=== PATIENT | male | born 1965 | race Caucasian/White ===

== ENCOUNTER 2017-01-06 20:56 | Inpatient (IN) | payer MEDICAID ==
[~2017-01-06] VITALS: Ht 165.1 cm; Wt 61.7 kg
[~2017-01-06 20:56] MED LIST: DSS100 PO; OMEP20 PO; OXCA300T PO; QUET300T2 PO; TAMS0.4C32 PO; VITAD1000 PO
[2017-01-06] MEDS ORDERED: ZOLPIDEM TARTRATE 10 MG TABLET PO PRN (22:00)
[2017-01-06] MEDS ORDERED: QUEtiapine FUMARATE 100 MG TABLET PO PRN (22:00)
[2017-01-06] MEDS ORDERED: -PHARMACY VACCINE NOTE- MISC ONE ×2 (22:15)
[2017-01-07 00:05] VITALS: BP 120/61
[2017-01-07] MEDS ORDERED: MAGNESIUM HYDROXIDE SUSPENSION 30 ML UDCUP PO PRN (07:45)
[2017-01-07] MEDS ORDERED: BACITRACIN 28.4 GM OINTMENT TP PRN (07:45)
[2017-01-07] MEDS ORDERED: BENZOCAINE/MENTHOL LOZENGE MM PRN (07:45)
[2017-01-07] MEDS ORDERED: CloNIDine HCL 0.1 MG TABLET PO PRN (07:45)
[2017-01-07] MEDS ORDERED: ACETAMINOPHEN 325 MG TABLET PO PRN (07:45)
[2017-01-07] MEDS ORDERED: PETROLATUM,WHITE 71 GM JELLY TP PRN (07:45)
[2017-01-07] MEDS ORDERED: IBUPROFEN 600 MG TABLET PO PRN (07:45)
[2017-01-07] MEDS ORDERED: ALBUTEROL SULFATE HFA 90 MCG/PUFF 8 GM INHALER IH PRN (07:45)
[2017-01-07] MEDS ORDERED: MAG HYDROX/AL HYDROX/SIMETH ES 30 ML SUSPENSION UDCUP PO PRN (07:45)
[2017-01-07] MEDS ORDERED: ONDANSETRON HCL 4 MG TABLET PO PRN (07:45)
[2017-01-07] MEDS ORDERED: LOPERAMIDE HCL 2 MG CAPSULE PO PRN (07:45)
[2017-01-07 08:12] LABS: BASOPHILS # (AUTO) 0.03 K/uL (0.00-0.20); BASOPHILS % (AUTO) 0.8 % (0.0-2.0); EOSINOPHILS # (AUTO) 0.17 K/uL (0.00-0.70); EOSINOPHILS % (AUTO) 3.91 % (1.0-6.0); HEMATOCRIT 40.5 % (41-53); HEMOGLOBIN 13.7 g/dL (13.5-17.5); LYMPHOCYTES # (AUTO) 1.4 K/uL (1.0-4.8); LYMPHOCYTES % (AUTO) 32.9 % (22.0-44.0); MEAN CORPUSCULAR HEMOGLOBIN 32.8 pg (26.0-34.0); MEAN CORPUSCULAR HGB CONC 33.8 G/dL (31.0-37.0); MEAN CORPUSCULAR VOLUME 97 fL (80-100); MONOCYTES # (AUTO) 0.7 K/uL (0.1-1.0); MONOCYTES % (AUTO) 16.1 % (2.0-9.0); NEUTROPHILS % (AUTO) 46.4 % (40.0-70.0); PLATELET COUNT (AUTO) 117 K/uL (150-450); RED BLOOD CELL COUNT(AUTO) 4.17 MIL/uL (4.50-5.90); RED CELL DISTRIBUTION WIDTH 14.3 % (11.5-14.5); WHITE BLOOD COUNT (AUTO) 4.3 K/uL (4.5-11.0)
[2017-01-07 08:22] LABS: HEMOGLOBIN A1C 5.2 % (4.5-6.2)
[2017-01-07 09:00] LABS: ALANINE AMINOTRANSFERASE 214 U/L (12-78); ALBUMIN 3.2 g/dL (3.4-5.0); ANION GAP 7 mmol/L (8-16); ASPARTATE AMINOTRANSFERASE 116 U/L (15-37); BILIRUBIN,TOTAL 0.5 mg/dL (0.1-1.0); CALCIUM, TOTAL 8.4 mg/dL (8.8-10.5); CARBON DIOXIDE 30 mmol/L (22-29); CHLORIDE 106 mmol/L (98-107); CHOL/HDL RATIO 3.6 (4.2-7.3); CREATININE 0.96 mg/dL (0.60-1.30); GLOMERULAR FILTR. RATE CALC > 60 mL/min (>60); SODIUM SERUM 143 mmol/L (136-145); THYROID STIMULATING HORMONE 0.96 uIU/mL (0.36-3.74); TOTAL PROTEIN, SERUM 6.6 g/dL (6.4-8.2); UREA NITROGEN, BLOOD 16 mg/dL (7-18)
[2017-01-07] MEDS ORDERED: OXcarbazepine 300 MG TABLET PO SCH (09:00)
[2017-01-07] MEDS ORDERED: GuaiFENesin/D-METHORPHAN [SUGAR-FREE] 200-20MG/10 ML SYRUP UDCUP PO PRN (09:15)
[2017-01-07] MEDS ORDERED: HydrOXYzine PAMOATE 50 MG CAPSULE PO PRN (09:15)
[2017-01-07 09:40] VITALS: BP 90/60
[2017-01-07] MEDS ORDERED: QUEtiapine FUMARATE 25 MG TABLET PO PRN (10:00)
[2017-01-07] MEDS: TAMSULOSIN HCL 0.4 MG CAPSULE PO SCH (10:07)
[2017-01-07] MEDS: CHOLECALCIFEROL (VIT D3) 1,000 UNITS TABLET PO SCH (10:07)
[2017-01-07] MEDS: OMEPRAZOLE 20 MG CAPSULE PO SCH (10:07)
[2017-01-07] MEDS: LORazepam 2 MG TABLET PO PRN (12:54)
[2017-01-07] MEDS: PARoxetine HCL 20 MG TABLET PO SCH (12:54)
[2017-01-07 16:00] VITALS: BP 98/62
[2017-01-07] MEDS: QUEtiapine FUMARATE 25 MG TABLET PO SCH (18:22)
[2017-01-07] MEDS: THIAMINE HCL 100 MG TABLET PO SCH (18:22)
[2017-01-07] MEDS: QUEtiapine FUMARATE 200 MG TABLET PO SCH ×2 (21:00→23:00)
[2017-01-07 21:30] VITALS: BP 105/67
[2017-01-07] MEDS ORDERED: DiphenhydrAMINE HCL 50 MG/ML VIAL IM ONE (22:30)
[2017-01-07] MEDS ORDERED: HALOPERIDOL LACTATE 5 MG/ML VIAL IM ONE (22:30)
[2017-01-07] MEDS ORDERED: LORazepam 2 MG/ML VIAL IM ONE (22:30)
[2017-01-08 00:05] VITALS: BP 102/62
[2017-01-08] MEDS ORDERED: PARoxetine HCL 20 MG TABLET PO SCH (09:00)
[2017-01-08] MEDS: TAMSULOSIN HCL 0.4 MG CAPSULE PO SCH (09:05)
[2017-01-08] MEDS: THIAMINE HCL 100 MG TABLET PO SCH ×2 (09:06→16:18)
[2017-01-08] MEDS: FOLIC ACID 1 MG TABLET PO SCH (09:06)
[2017-01-08] MEDS: QUEtiapine FUMARATE 25 MG TABLET PO SCH ×2 (09:06→16:18)
[2017-01-08] MEDS: CHOLECALCIFEROL (VIT D3) 1,000 UNITS TABLET PO SCH (09:06)
[2017-01-08] MEDS: OMEPRAZOLE 20 MG CAPSULE PO SCH (09:06)
[2017-01-08] MEDS: PARoxetine HCL 20 MG TABLET PO SCH (09:06)
[2017-01-08] MEDS: MULTIVITAMINS WITH MINERALS, THERAPEUTIC TABLET PO SCH (09:06)
[2017-01-08] MEDS: QUEtiapine FUMARATE 200 MG TABLET PO SCH (21:42)
[2017-01-09 01:44] VITALS: BP 93/64
[2017-01-09 08:00] VITALS: BP 90/61
[2017-01-09] MEDS: QUEtiapine FUMARATE 25 MG TABLET PO SCH ×2 (09:00→16:34)
[2017-01-09] MEDS: FOLIC ACID 1 MG TABLET PO SCH (09:13)
[2017-01-09] MEDS: MULTIVITAMINS WITH MINERALS, THERAPEUTIC TABLET PO SCH (09:13)
[2017-01-09] MEDS: OMEPRAZOLE 20 MG CAPSULE PO SCH (09:13)
[2017-01-09] MEDS: LamoTRIgine 25 MG TABLET PO SCH (09:14)
[2017-01-09] MEDS: THIAMINE HCL 100 MG TABLET PO SCH ×2 (09:14→16:34)
[2017-01-09] MEDS: CHOLECALCIFEROL (VIT D3) 1,000 UNITS TABLET PO SCH (09:14)
[2017-01-09] MEDS: TAMSULOSIN HCL 0.4 MG CAPSULE PO SCH (09:14)
[2017-01-09 16:00] VITALS: BP 96/58
[2017-01-09] MEDS: LORazepam 2 MG TABLET PO PRN (17:51)
[2017-01-09] MEDS ORDERED: QUEtiapine FUMARATE 100 MG TABLET PO SCH (21:00)
[2017-01-10 07:03] VITALS: BP 90/56
[2017-01-10 08:59] VITALS: BP 81/48
[2017-01-10] MEDS: THIAMINE HCL 100 MG TABLET PO SCH ×3 (09:00→16:18)
[2017-01-10] MEDS: FOLIC ACID 1 MG TABLET PO SCH ×2 (09:00→09:26)
[2017-01-10] MEDS: CHOLECALCIFEROL (VIT D3) 1,000 UNITS TABLET PO SCH ×2 (09:00→09:26)
[2017-01-10] MEDS: QUEtiapine FUMARATE 25 MG TABLET PO SCH (09:00)
[2017-01-10] MEDS: LamoTRIgine 25 MG TABLET PO SCH ×2 (09:00→09:26)
[2017-01-10] MEDS: MULTIVITAMINS WITH MINERALS, THERAPEUTIC TABLET PO SCH ×2 (09:00→09:26)
[2017-01-10] MEDS: OMEPRAZOLE 20 MG CAPSULE PO SCH (09:26)
[2017-01-10] MEDS: TAMSULOSIN HCL 0.4 MG CAPSULE PO SCH (09:26)
[2017-01-10 17:29] VITALS: BP 106/65
[2017-01-10] MEDS ORDERED: LamoTRIgine 25 MG TABLET PO SCH (21:00)
[2017-01-10] MEDS ORDERED: QUEtiapine FUMARATE 300 MG TABLET PO SCH (21:00)
[2017-01-11 00:01] VITALS: BP 104/65
[2017-01-11] MEDS: MULTIVITAMINS WITH MINERALS, THERAPEUTIC TABLET PO SCH (09:14)
[2017-01-11] MEDS: THIAMINE HCL 100 MG TABLET PO SCH ×2 (09:14→17:25)
[2017-01-11] MEDS: TAMSULOSIN HCL 0.4 MG CAPSULE PO SCH (09:14)
[2017-01-11] MEDS: FOLIC ACID 1 MG TABLET PO SCH (09:14)
[2017-01-11] MEDS: CHOLECALCIFEROL (VIT D3) 1,000 UNITS TABLET PO SCH (09:14)
[2017-01-11] MEDS: OMEPRAZOLE 20 MG CAPSULE PO SCH (09:14)
[2017-01-11] MEDS ORDERED: THIA100 PO (16:05)
[2017-01-11] MEDS ORDERED: FOLI1 PO (16:06)
[2017-01-11] MEDS ORDERED: MV-M1TAB2 PO (16:18)
[2017-01-11] MEDS ORDERED: LAMO25 PO (16:34)
== END 2017-01-11 17:35 | disposition home or self-care (01) | DRG 750 ==
LOC: B2S 21:58 → EDSTATUS 22:02 → B2S 22:14
PROVIDERS: ADMIT Psychiatry & Neurology Psychiatry; ATTEND Psychiatry & Neurology Psychiatry
DX: F25.0 Schizoaffective disorder, bipolar type (principal); G93.41 Metabolic encephalopathy; E46 Unspecified protein-calorie malnutrition; J44.9 Chronic obstructive pulmonary disease, unspecified; E55.9 Vitamin D deficiency, unspecified; F19.20 Other psychoactive substance dependence, uncomplicated; F17.200 Nicotine dependence, unspecified, uncomplicated; N40.0 Benign prostatic hyperplasia without lower urinary tract symptoms; Z91.14 Patient's other noncompliance with medication regimen; K21.9 Gastro-esophageal reflux disease without esophagitis; B18.2 Chronic viral hepatitis C; K59.00 Constipation, unspecified; G47.00 Insomnia, unspecified; Z68.22 Body mass index [BMI] 22.0-22.9, adult; R45.851 Suicidal ideations
CPT/HCPCS: 83036; 84439; 84443

== ENCOUNTER 2017-04-10 16:05 | Emergency (ER) | payer MEDICAID ==
[~2017-04-10] VITALS: Ht 165.1 cm; Wt 56.8 kg
[~2017-04-10 16:05] MED LIST changes: -DSS100 PO; +FOLI1 PO; +LAMO25 PO; +MV-M1TAB2 PO; -OXCA300T PO; +THIA100 PO
[2017-04-10] MEDS ORDERED: LORazepam 2 MG/ML VIAL IM ONE (16:30)
[2017-04-10 16:55] LABS: ANION GAP 12 mmol/L (8-16); CALCIUM, TOTAL 9.5 mg/dL (8.8-10.5); CARBON DIOXIDE 25 mmol/L (22-29); CHLORIDE 104 mmol/L (98-107); CREATININE 0.98 mg/dL (0.60-1.30); GLOMERULAR FILTR. RATE CALC > 60 mL/min (>60); POTASSIUM 3.6 mmol/L (3.5-5.1); SODIUM SERUM 141 mmol/L (136-145); UREA NITROGEN, BLOOD 12 mg/dL (7-18)
[2017-04-10 16:57] LABS: BASOPHILS % (AUTO) 0.3 % (0.0-2.0); EOSINOPHILS % (AUTO) 0.8 % (1.0-6.0); HEMATOCRIT 46.5 % (41-53); HEMOGLOBIN 16.2 g/dL (13.5-17.5); LYMPHOCYTES # (AUTO) 1.5 K/uL (1.0-4.8); LYMPHOCYTES % (AUTO) 28.6 % (22.0-44.0); MEAN CORPUSCULAR HEMOGLOBIN 33.2 pg (26.0-34.0); MEAN CORPUSCULAR HGB CONC 34.8 G/dL (31.0-37.0); MEAN CORPUSCULAR VOLUME 96 fL (80-100); MONOCYTES # (AUTO) 0.4 K/uL (0.1-1.0); MONOCYTES % (AUTO) 8.1 % (2.0-9.0); NEUTROPHILS # (AUTO) 3.3 K/uL (1.8-7.7); NEUTROPHILS % (AUTO) 62.2 % (40.0-70.0); PLATELET COUNT (AUTO) 135 K/uL (150-450); RED BLOOD CELL COUNT(AUTO) 4.87 MIL/uL (4.50-5.90); RED CELL DISTRIBUTION WIDTH 13.7 % (11.5-14.5); WHITE BLOOD COUNT (AUTO) 5.3 K/uL (4.5-11.0)
[2017-04-10 17:01] LABS: ALANINE AMINOTRANSFERASE 256 U/L (12-78); ALBUMIN 3.8 g/dL (3.4-5.0); ASPARTATE AMINOTRANSFERASE 152 U/L (15-37); BILIRUBIN,TOTAL 0.8 mg/dL (0.1-1.0); TOTAL PROTEIN, SERUM 7.6 g/dL (6.4-8.2)
[2017-04-10 20:31] VITALS: BP 109/62
== END 2017-04-10 20:33 | disposition home or self-care (01) ==
LOC: EDSTATUS 16:05 → EMS 16:12
DX: F41.9 Anxiety disorder, unspecified (principal); F25.9 Schizoaffective disorder, unspecified; F15.10 Other stimulant abuse, uncomplicated; F31.9 Bipolar disorder, unspecified; E03.9 Hypothyroidism, unspecified; B19.20 Unspecified viral hepatitis C without hepatic coma; Z59.0 Homelessness
CPT/HCPCS: 36415; 71010; 80053; 80307; 85025; 93005; 96372; 99285; G0480; J2060

== ENCOUNTER 2017-06-10 19:24 | Inpatient (IN) | payer MEDICAID ==
[~2017-06-10] VITALS: Ht 165.1 cm; Wt 56.3 kg
[~2017-06-10 19:24] MED LIST changes: +DSS100 PO; -FOLI1 PO; +MULT-723 PO; -MV-M1TAB2 PO; +PARO20TA24 PO; +QUET25TA PO; -THIA100 PO; -VITAD1000 PO
[2017-06-10] MEDS ORDERED: HALOPERIDOL 5 MG TABLET PO PRN (20:00)
[2017-06-10] MEDS ORDERED: LORazepam 2 MG TABLET PO PRN (20:00)
[2017-06-10 20:19] VITALS: BP 100/69
[2017-06-10] MEDS ORDERED: INFLUENZA VIRUS VACCINE QVS 2017-18 (3YR+)/PF 60 MCG/0.5 ML SYRINGE IM ONE (20:45)
[2017-06-10] MEDS: QUEtiapine FUMARATE 300 MG TABLET PO SCH (21:06)
[2017-06-10] MEDS: LamoTRIgine 25 MG TABLET PO SCH (21:06)
[2017-06-11 00:52] VITALS: BP 100/53
[2017-06-11] MEDS: OMEPRAZOLE 20 MG CAPSULE PO SCH (06:31)
[2017-06-11 08:36] VITALS: BP 96/57
[2017-06-11] MEDS: MULTIVITAMINS, THERAPEUTIC TABLET PO SCH (08:48)
[2017-06-11] MEDS: QUEtiapine FUMARATE 25 MG TABLET PO SCH ×2 (08:48→17:49)
[2017-06-11] MEDS: DOCUSATE SODIUM 100 MG CAPSULE PO SCH (08:49)
[2017-06-11] MEDS: LamoTRIgine 25 MG TABLET PO SCH ×2 (08:49→21:02)
[2017-06-11] MEDS: TAMSULOSIN HCL 0.4 MG CAPSULE PO SCH (08:49)
[2017-06-11] MEDS: PARoxetine HCL 20 MG TABLET PO SCH (08:49)
[2017-06-11 17:00] VITALS: BP 103/67
[2017-06-11] MEDS ORDERED: ALBUTEROL SULFATE HFA 90 MCG/PUFF 8 GM INHALER IH PRN (19:15)
[2017-06-11] MEDS: QUEtiapine FUMARATE 300 MG TABLET PO SCH (21:02)
[2017-06-12] MEDS: OMEPRAZOLE 20 MG CAPSULE PO SCH (06:19)
[2017-06-12 06:22] VITALS: BP 116/62
[2017-06-12 08:18] LABS: BASOPHILS % (AUTO) 1.2 % (0.0-2.0); EOSINOPHILS % (AUTO) 4.1 % (1.0-6.0); HEMATOCRIT 39.2 % (41-53); HEMOGLOBIN 13.8 g/dL (13.5-17.5); LYMPHOCYTES # (AUTO) 1.3 K/uL (1.0-4.8); LYMPHOCYTES % (AUTO) 37.1 % (22.0-44.0); MEAN CORPUSCULAR HEMOGLOBIN 33.9 pg (26.0-34.0); MEAN CORPUSCULAR HGB CONC 35.1 G/dL (31.0-37.0); MEAN CORPUSCULAR VOLUME 97 fL (80-100); MONOCYTES # (AUTO) 0.5 K/uL (0.1-1.0); NEUTROPHILS # (AUTO) 1.6 K/uL (1.8-7.7); NEUTROPHILS % (AUTO) 43.6 % (40.0-70.0); PLATELET COUNT (AUTO) 122 K/uL (150-450); RED BLOOD CELL COUNT(AUTO) 4.06 MIL/uL (4.50-5.90); RED CELL DISTRIBUTION WIDTH 14.1 % (11.5-14.5); WHITE BLOOD COUNT (AUTO) 3.6 K/uL (4.5-11.0)
[2017-06-12 08:49] LABS: ALANINE AMINOTRANSFERASE 309 U/L (12-78); ALBUMIN 2.9 g/dL (3.4-5.0); ASPARTATE AMINOTRANSFERASE 241 U/L (15-37); BILIRUBIN,TOTAL 0.5 mg/dL (0.1-1.0); CALCIUM, TOTAL 8.4 mg/dL (8.8-10.5); CARBON DIOXIDE 30 mmol/L (22-29); CHOL/HDL RATIO 3.4 (4.2-7.3); CREATININE 1.01 mg/dL (0.60-1.30); GLOMERULAR FILTR. RATE CALC > 60 mL/min (>60); THYROID STIMULATING HORMONE 0.46 uIU/mL (0.36-3.74)
[2017-06-12] MEDS: QUEtiapine FUMARATE 25 MG TABLET PO SCH ×2 (09:00→16:23)
[2017-06-12] MEDS: PARoxetine HCL 20 MG TABLET PO SCH (09:00)
[2017-06-12] MEDS: LamoTRIgine 25 MG TABLET PO SCH ×2 (09:00→20:21)
[2017-06-12] MEDS: TAMSULOSIN HCL 0.4 MG CAPSULE PO SCH (09:00)
[2017-06-12] MEDS: DOCUSATE SODIUM 100 MG CAPSULE PO SCH (09:00)
[2017-06-12] MEDS: MULTIVITAMINS, THERAPEUTIC TABLET PO SCH (09:00)
[2017-06-12 09:06] VITALS: BP 112/70
[2017-06-12 10:01] LABS: UREA NITROGEN, BLOOD 21 mg/dL (7-18)
[2017-06-12 11:01] LABS: HEMOGLOBIN A1C 4.6 % (4.5-6.2)
[2017-06-12 11:14] LABS: ANION GAP 5 mmol/L (8-16); CHLORIDE 104 mmol/L (98-107); POTASSIUM 3.9 mmol/L (3.5-5.1); SODIUM SERUM 139 mmol/L (136-145)
[2017-06-12 16:15] VITALS: BP 119/70
[2017-06-12] MEDS: QUEtiapine FUMARATE 300 MG TABLET PO SCH (20:21)
[2017-06-13 01:11] VITALS: BP 100/68
[2017-06-13] MEDS: OMEPRAZOLE 20 MG CAPSULE PO SCH (06:58)
[2017-06-13 08:45] VITALS: BP 116/73
[2017-06-13] MEDS: QUEtiapine FUMARATE 25 MG TABLET PO SCH ×2 (08:49→16:08)
[2017-06-13] MEDS: TAMSULOSIN HCL 0.4 MG CAPSULE PO SCH (08:49)
[2017-06-13] MEDS: MULTIVITAMINS, THERAPEUTIC TABLET PO SCH (08:49)
[2017-06-13] MEDS: DOCUSATE SODIUM 100 MG CAPSULE PO SCH (08:50)
[2017-06-13] MEDS: PARoxetine HCL 20 MG TABLET PO SCH (08:50)
[2017-06-13] MEDS: LamoTRIgine 25 MG TABLET PO SCH ×2 (08:50→20:05)
[2017-06-13] MEDS: FLUTICASONE/VILANTEROL 200-25 MCG/INH INHALER [14] IH SCH (09:40)
[2017-06-13 16:01] VITALS: BP 93/58
[2017-06-13] MEDS: QUEtiapine FUMARATE 300 MG TABLET PO SCH (20:05)
[2017-06-14 00:01] VITALS: BP 101/63
[2017-06-14] MEDS: OMEPRAZOLE 20 MG CAPSULE PO SCH (06:32)
[2017-06-14 08:29] VITALS: BP 82/60
[2017-06-14] MEDS: FLUTICASONE/VILANTEROL 200-25 MCG/INH INHALER [14] IH SCH (08:30)
[2017-06-14] MEDS: QUEtiapine FUMARATE 25 MG TABLET PO SCH ×2 (08:30→17:01)
[2017-06-14] MEDS: PARoxetine HCL 20 MG TABLET PO SCH (08:31)
[2017-06-14] MEDS: LamoTRIgine 25 MG TABLET PO SCH ×2 (08:31→20:23)
[2017-06-14] MEDS: MULTIVITAMINS, THERAPEUTIC TABLET PO SCH (08:31)
[2017-06-14] MEDS: DOCUSATE SODIUM 100 MG CAPSULE PO SCH (08:31)
[2017-06-14] MEDS: TAMSULOSIN HCL 0.4 MG CAPSULE PO SCH (08:32)
[2017-06-14 16:07] VITALS: BP 112/65
[2017-06-14] MEDS: QUEtiapine FUMARATE 300 MG TABLET PO SCH (20:23)
[2017-06-15 02:12] VITALS: BP 122/71
[2017-06-15] MEDS: OMEPRAZOLE 20 MG CAPSULE PO SCH (06:37)
[2017-06-15 08:18] VITALS: BP 108/62
[2017-06-15] MEDS: MULTIVITAMINS, THERAPEUTIC TABLET PO SCH (09:18)
[2017-06-15] MEDS: TAMSULOSIN HCL 0.4 MG CAPSULE PO SCH (09:18)
[2017-06-15] MEDS: QUEtiapine FUMARATE 25 MG TABLET PO SCH ×2 (09:18→16:41)
[2017-06-15] MEDS: LamoTRIgine 25 MG TABLET PO SCH ×2 (09:19→20:09)
[2017-06-15] MEDS: PARoxetine HCL 20 MG TABLET PO SCH (09:19)
[2017-06-15] MEDS: DOCUSATE SODIUM 100 MG CAPSULE PO SCH (09:19)
[2017-06-15] MEDS: FLUTICASONE/VILANTEROL 200-25 MCG/INH INHALER [14] IH SCH (09:23)
[2017-06-15 16:09] VITALS: BP 102/60
[2017-06-15] MEDS: QUEtiapine FUMARATE 300 MG TABLET PO SCH (20:09)
[2017-06-16] MEDS: OMEPRAZOLE 20 MG CAPSULE PO SCH (06:39)
[2017-06-16 09:00] VITALS: BP 98/57
[2017-06-16] MEDS: DOCUSATE SODIUM 100 MG CAPSULE PO SCH (09:22)
[2017-06-16] MEDS: MULTIVITAMINS, THERAPEUTIC TABLET PO SCH (09:23)
[2017-06-16] MEDS: PARoxetine HCL 20 MG TABLET PO SCH (09:23)
[2017-06-16] MEDS: QUEtiapine FUMARATE 25 MG TABLET PO SCH ×2 (09:23→16:57)
[2017-06-16] MEDS: TAMSULOSIN HCL 0.4 MG CAPSULE PO SCH (09:23)
[2017-06-16] MEDS: FLUTICASONE/VILANTEROL 200-25 MCG/INH INHALER [14] IH SCH (09:23)
[2017-06-16] MEDS: LamoTRIgine 25 MG TABLET PO SCH ×2 (09:23→20:40)
[2017-06-16] MEDS ORDERED: PALIPERIDONE PALMITATE 234 MG/1.5 ML SYRINGE IM ONE (10:45)
[2017-06-16 16:35] VITALS: BP 117/71
[2017-06-16] MEDS: QUEtiapine FUMARATE 300 MG TABLET PO SCH (20:40)
[2017-06-16] MEDS: ZOLPIDEM TARTRATE 10 MG TABLET PO PRN (20:48)
[2017-06-17] MEDS: OMEPRAZOLE 20 MG CAPSULE PO SCH (06:44)
[2017-06-17 08:15] LABS: BASOPHILS % (AUTO) 0.5 % (0.0-2.0); EOSINOPHILS % (AUTO) 2.7 % (1.0-6.0); HEMATOCRIT 40.7 % (41-53); HEMOGLOBIN 14.3 g/dL (13.5-17.5); LYMPHOCYTES # (AUTO) 1.1 K/uL (1.0-4.8); LYMPHOCYTES % (AUTO) 24.5 % (22.0-44.0); MEAN CORPUSCULAR HEMOGLOBIN 34.1 pg (26.0-34.0); MEAN CORPUSCULAR VOLUME 97 fL (80-100); MONOCYTES # (AUTO) 0.6 K/uL (0.1-1.0); NEUTROPHILS # (AUTO) 2.7 K/uL (1.8-7.7); NEUTROPHILS % (AUTO) 59.3 % (40.0-70.0); PLATELET COUNT (AUTO) 115 K/uL (150-450); RED BLOOD CELL COUNT(AUTO) 4.18 MIL/uL (4.50-5.90); RED CELL DISTRIBUTION WIDTH 14.3 % (11.5-14.5); WHITE BLOOD COUNT (AUTO) 4.5 K/uL (4.5-11.0)
[2017-06-17 08:31] LABS: CHOL/HDL RATIO 3.3 (4.2-7.3); THYROID STIMULATING HORMONE 1.75 uIU/mL (0.36-3.74)
[2017-06-17] MEDS: TAMSULOSIN HCL 0.4 MG CAPSULE PO SCH (09:21)
[2017-06-17] MEDS: LamoTRIgine 25 MG TABLET PO SCH ×2 (09:21→20:51)
[2017-06-17] MEDS: MULTIVITAMINS, THERAPEUTIC TABLET PO SCH (09:21)
[2017-06-17] MEDS: QUEtiapine FUMARATE 25 MG TABLET PO SCH ×2 (09:21→17:15)
[2017-06-17] MEDS: PARoxetine HCL 20 MG TABLET PO SCH (09:21)
[2017-06-17] MEDS: DOCUSATE SODIUM 100 MG CAPSULE PO SCH (09:21)
[2017-06-17] MEDS: FLUTICASONE/VILANTEROL 200-25 MCG/INH INHALER [14] IH SCH (09:22)
[2017-06-17 15:05] VITALS: BP 100/69
[2017-06-17 16:31] VITALS: BP 110/66
[2017-06-17] MEDS: QUEtiapine FUMARATE 300 MG TABLET PO SCH (20:51)
[2017-06-17] MEDS: ZOLPIDEM TARTRATE 10 MG TABLET PO PRN (22:30)
[2017-06-18 00:01] VITALS: BP 101/67
[2017-06-18] MEDS: OMEPRAZOLE 20 MG CAPSULE PO SCH (06:16)
[2017-06-18 08:53] VITALS: BP 98/58
[2017-06-18] MEDS: TAMSULOSIN HCL 0.4 MG CAPSULE PO SCH (09:40)
[2017-06-18] MEDS: PARoxetine HCL 20 MG TABLET PO SCH (09:40)
[2017-06-18] MEDS: QUEtiapine FUMARATE 25 MG TABLET PO SCH ×2 (09:40→17:06)
[2017-06-18] MEDS: DOCUSATE SODIUM 100 MG CAPSULE PO SCH (09:40)
[2017-06-18] MEDS: MULTIVITAMINS, THERAPEUTIC TABLET PO SCH (09:40)
[2017-06-18] MEDS: LamoTRIgine 25 MG TABLET PO SCH ×2 (09:40→20:37)
[2017-06-18] MEDS: FLUTICASONE/VILANTEROL 200-25 MCG/INH INHALER [14] IH SCH (09:40)
[2017-06-18 12:36] VITALS: BP 96/56
[2017-06-18 16:41] VITALS: BP 102/62
[2017-06-18] MEDS: QUEtiapine FUMARATE 300 MG TABLET PO SCH (20:37)
[2017-06-19 00:53] VITALS: BP 110/69
[2017-06-19 01:11] VITALS: BP 100/59
[2017-06-19] MEDS: OMEPRAZOLE 20 MG CAPSULE PO SCH (06:43)
[2017-06-19] MEDS: PARoxetine HCL 20 MG TABLET PO SCH (08:38)
[2017-06-19] MEDS: LamoTRIgine 25 MG TABLET PO SCH ×2 (08:38→21:06)
[2017-06-19] MEDS: QUEtiapine FUMARATE 25 MG TABLET PO SCH ×2 (08:38→16:53)
[2017-06-19] MEDS: DOCUSATE SODIUM 100 MG CAPSULE PO SCH (08:38)
[2017-06-19] MEDS: TAMSULOSIN HCL 0.4 MG CAPSULE PO SCH (08:38)
[2017-06-19] MEDS: MULTIVITAMINS, THERAPEUTIC TABLET PO SCH (08:38)
[2017-06-19] MEDS: FLUTICASONE/VILANTEROL 200-25 MCG/INH INHALER [14] IH SCH (08:39)
[2017-06-19] MEDS ORDERED: PALIPERIDONE PALMITATE 156 MG/ML SYRINGE IM ONE (11:00)
[2017-06-19 14:56] VITALS: BP 99/64
[2017-06-19 16:09] VITALS: BP 112/72
[2017-06-19] MEDS: QUEtiapine FUMARATE 300 MG TABLET PO SCH (21:06)
[2017-06-20 06:30] VITALS: BP 106/68
[2017-06-20] MEDS: OMEPRAZOLE 20 MG CAPSULE PO SCH (06:34)
[2017-06-20] MEDS: MULTIVITAMINS, THERAPEUTIC TABLET PO SCH (08:22)
[2017-06-20] MEDS: LamoTRIgine 25 MG TABLET PO SCH (08:22)
[2017-06-20] MEDS: PARoxetine HCL 20 MG TABLET PO SCH (08:22)
[2017-06-20] MEDS: FLUTICASONE/VILANTEROL 200-25 MCG/INH INHALER [14] IH SCH (08:22)
[2017-06-20] MEDS: QUEtiapine FUMARATE 25 MG TABLET PO SCH ×2 (08:22→16:03)
[2017-06-20] MEDS: DOCUSATE SODIUM 100 MG CAPSULE PO SCH (08:22)
[2017-06-20] MEDS: TAMSULOSIN HCL 0.4 MG CAPSULE PO SCH (08:22)
[2017-06-20 08:55] VITALS: BP 92/55
[2017-06-20] MEDS ORDERED: FLUT1BLS IH (15:12)
[2017-07-21] MEDS ORDERED: PALIPERIDONE PALMITATE 234 MG/1.5 ML SYRINGE IM SCH (09:00)
== END 2017-06-20 16:30 | disposition home or self-care (01) | DRG 750 ==
LOC: EDSTATUS 20:07 → B2S 20:17
PROVIDERS: ATTEND Psychiatry & Neurology Child & Adolescent Psychiatry
DX: F25.0 Schizoaffective disorder, bipolar type (principal); I95.9 Hypotension, unspecified; E44.0 Moderate protein-calorie malnutrition; R45.851 Suicidal ideations; F15.20 Other stimulant dependence, uncomplicated; E86.0 Dehydration; Z59.0 Homelessness; F17.210 Nicotine dependence, cigarettes, uncomplicated; N40.0 Benign prostatic hyperplasia without lower urinary tract symptoms; J44.9 Chronic obstructive pulmonary disease, unspecified; K21.9 Gastro-esophageal reflux disease without esophagitis; K59.00 Constipation, unspecified; G47.00 Insomnia, unspecified; B18.2 Chronic viral hepatitis C; F12.20 Cannabis dependence, uncomplicated; D47.3 Essential (hemorrhagic) thrombocythemia; Z68.20 Body mass index [BMI] 20.0-20.9, adult; Z79.899 Other long term (current) drug therapy; Z71.6 Tobacco abuse counseling; Z81.8 Family history of other mental and behavioral disorders
CPT/HCPCS: 82306; 83036; 84439; 84443; 84520; 90471; 99285

== ENCOUNTER 2017-07-02 19:43 | Inpatient (IN) | payer MEDICAID ==
[~2017-07-02] VITALS: Ht 165.1 cm; Wt 58.5 kg
[~2017-07-02 19:43] MED LIST changes: +FLUT1BLS IH; -MULT-723 PO
[2017-07-02] MEDS ORDERED: INFLUENZA VIRUS VACCINE QVS 2017-18 (3YR+)/PF 60 MCG/0.5 ML SYRINGE IM ONE (20:30)
[2017-07-02] MEDS ORDERED: PNEUMOCOCCAL VACCINE POLYVALENT 0.5 ML VIAL [PPSV23] IM ONE (20:30)
[2017-07-02] MEDS ORDERED: HALOPERIDOL 5 MG TABLET PO PRN (20:45)
[2017-07-02] MEDS ORDERED: ZOLPIDEM TARTRATE 10 MG TABLET PO PRN (20:45)
[2017-07-02 20:54] VITALS: BP 115/65
[2017-07-02] MEDS: LamoTRIgine 25 MG TABLET PO SCH (22:25)
[2017-07-02] MEDS: LORazepam 2 MG TABLET PO PRN (22:25)
[2017-07-02] MEDS: QUEtiapine FUMARATE 25 MG TABLET PO SCH (22:25)
[2017-07-02] MEDS: QUEtiapine FUMARATE 300 MG TABLET PO SCH (22:25)
[2017-07-03 00:32] VITALS: BP 101/62
[2017-07-03] MEDS: OMEPRAZOLE 20 MG CAPSULE PO SCH (06:28)
[2017-07-03 08:18] VITALS: BP 89/63
[2017-07-03] MEDS: PARoxetine HCL 20 MG TABLET PO SCH (08:42)
[2017-07-03] MEDS: DOCUSATE SODIUM 100 MG CAPSULE PO SCH (08:42)
[2017-07-03] MEDS: FLUTICASONE/VILANTEROL 200-25 MCG/INH INHALER [14] IH SCH (08:42)
[2017-07-03] MEDS: TAMSULOSIN HCL 0.4 MG CAPSULE PO SCH (08:42)
[2017-07-03] MEDS: QUEtiapine FUMARATE 25 MG TABLET PO SCH ×2 (08:42→16:43)
[2017-07-03] MEDS: LamoTRIgine 25 MG TABLET PO SCH ×2 (08:42→20:43)
[2017-07-03] MEDS ORDERED: IBUPROFEN 600 MG TABLET PO PRN (10:00)
[2017-07-03] MEDS ORDERED: PETROLATUM,WHITE 71 GM JELLY TP PRN (10:00)
[2017-07-03] MEDS ORDERED: MAG HYDROX/AL HYDROX/SIMETH ES 30 ML SUSPENSION UDCUP PO PRN (10:00)
[2017-07-03] MEDS ORDERED: ONDANSETRON HCL 4 MG TABLET PO PRN (10:00)
[2017-07-03] MEDS ORDERED: MAGNESIUM HYDROXIDE SUSPENSION 30 ML UDCUP PO PRN (10:00)
[2017-07-03] MEDS ORDERED: BENZOCAINE/MENTHOL LOZENGE MM PRN (10:00)
[2017-07-03] MEDS ORDERED: BACITRACIN 28.4 GM OINTMENT TP PRN (10:00)
[2017-07-03] MEDS ORDERED: CloNIDine HCL 0.1 MG TABLET PO PRN (10:00)
[2017-07-03] MEDS ORDERED: ACETAMINOPHEN 325 MG TABLET PO PRN (10:00)
[2017-07-03] MEDS ORDERED: LOPERAMIDE HCL 2 MG CAPSULE PO PRN (10:00)
[2017-07-03] MEDS ORDERED: ALBUTEROL SULFATE HFA 90 MCG/PUFF 8 GM INHALER IH PRN (10:00)
[2017-07-03] MEDS ORDERED: PALIPERIDONE PALMITATE 234 MG/1.5 ML SYRINGE IM SCH (15:30)
[2017-07-03 18:08] VITALS: BP 104/67
[2017-07-03] MEDS: QUEtiapine FUMARATE 300 MG TABLET PO SCH (20:43)
[2017-07-04 06:55] VITALS: BP 111/60
[2017-07-04] MEDS: OMEPRAZOLE 20 MG CAPSULE PO SCH (07:09)
[2017-07-04 08:38] LABS: GLUCOSE,POINT OF CARE 137 MG/DL (70-110)
[2017-07-04] MEDS: DOCUSATE SODIUM 100 MG CAPSULE PO SCH (08:39)
[2017-07-04] MEDS: LamoTRIgine 25 MG TABLET PO SCH ×2 (08:39→20:35)
[2017-07-04] MEDS: PARoxetine HCL 20 MG TABLET PO SCH (08:39)
[2017-07-04] MEDS: TAMSULOSIN HCL 0.4 MG CAPSULE PO SCH (08:39)
[2017-07-04] MEDS: QUEtiapine FUMARATE 25 MG TABLET PO SCH ×2 (08:39→16:22)
[2017-07-04] MEDS: FLUTICASONE/VILANTEROL 200-25 MCG/INH INHALER [14] IH SCH (08:42)
[2017-07-04 12:41] VITALS: BP 102/64
[2017-07-04 16:26] VITALS: BP 100/63
[2017-07-04] MEDS: QUEtiapine FUMARATE 300 MG TABLET PO SCH (20:35)
[2017-07-05 06:20] VITALS: BP 110/62
[2017-07-05 06:25] VITALS: BP 109/65
[2017-07-05] MEDS: OMEPRAZOLE 20 MG CAPSULE PO SCH (07:15)
[2017-07-05 09:01] VITALS: BP 100/59
[2017-07-05] MEDS: FLUTICASONE/VILANTEROL 200-25 MCG/INH INHALER [14] IH SCH (10:41)
[2017-07-05] MEDS: DOCUSATE SODIUM 100 MG CAPSULE PO SCH (10:41)
[2017-07-05] MEDS: QUEtiapine FUMARATE 25 MG TABLET PO SCH ×2 (10:42→16:32)
[2017-07-05] MEDS: LamoTRIgine 25 MG TABLET PO SCH ×2 (10:42→20:08)
[2017-07-05] MEDS: PARoxetine HCL 20 MG TABLET PO SCH (10:42)
[2017-07-05] MEDS: TAMSULOSIN HCL 0.4 MG CAPSULE PO SCH (10:42)
[2017-07-05] MEDS: LORazepam 2 MG TABLET PO PRN (14:11)
[2017-07-05 17:35] VITALS: BP 102/65
[2017-07-05] MEDS: QUEtiapine FUMARATE 300 MG TABLET PO SCH (20:08)
[2017-07-06 00:01] VITALS: BP 101/63
[2017-07-06] MEDS: OMEPRAZOLE 20 MG CAPSULE PO SCH (06:27)
[2017-07-06 09:00] VITALS: BP 98/60
[2017-07-06] MEDS: TAMSULOSIN HCL 0.4 MG CAPSULE PO SCH (10:21)
[2017-07-06] MEDS: FLUTICASONE/VILANTEROL 200-25 MCG/INH INHALER [14] IH SCH (10:21)
[2017-07-06] MEDS: DOCUSATE SODIUM 100 MG CAPSULE PO SCH (10:21)
[2017-07-06] MEDS: PARoxetine HCL 20 MG TABLET PO SCH (10:22)
[2017-07-06] MEDS: QUEtiapine FUMARATE 25 MG TABLET PO SCH ×2 (10:22→16:20)
[2017-07-06] MEDS: LamoTRIgine 25 MG TABLET PO SCH ×2 (10:22→20:37)
[2017-07-06] MEDS: QUEtiapine FUMARATE 300 MG TABLET PO SCH (20:37)
[2017-07-07 04:09] VITALS: BP 102/62
[2017-07-07] MEDS: OMEPRAZOLE 20 MG CAPSULE PO SCH (06:11)
[2017-07-07 08:17] VITALS: BP 102/61
[2017-07-07] MEDS: LamoTRIgine 25 MG TABLET PO SCH ×2 (08:53→20:21)
[2017-07-07] MEDS: FLUTICASONE/VILANTEROL 200-25 MCG/INH INHALER [14] IH SCH (08:53)
[2017-07-07] MEDS: PARoxetine HCL 20 MG TABLET PO SCH (08:53)
[2017-07-07] MEDS: TAMSULOSIN HCL 0.4 MG CAPSULE PO SCH (08:53)
[2017-07-07] MEDS: QUEtiapine FUMARATE 25 MG TABLET PO SCH ×2 (08:53→16:14)
[2017-07-07] MEDS: DOCUSATE SODIUM 100 MG CAPSULE PO SCH (08:53)
[2017-07-07] MEDS: LORazepam 2 MG TABLET PO PRN (15:55)
[2017-07-07 16:51] VITALS: BP 121/62
[2017-07-07] MEDS: QUEtiapine FUMARATE 300 MG TABLET PO SCH (20:21)
[2017-07-08 06:29] VITALS: BP 104/61
[2017-07-08] MEDS: OMEPRAZOLE 20 MG CAPSULE PO SCH (06:47)
[2017-07-08 08:19] LABS: BASOPHILS % (AUTO) 0.6 % (0.0-2.0); EOSINOPHILS % (AUTO) 2.9 % (1.0-6.0); HEMOGLOBIN 14.1 g/dL (13.5-17.5); LYMPHOCYTES # (AUTO) 1.2 K/uL (1.0-4.8); LYMPHOCYTES % (AUTO) 23.9 % (22.0-44.0); MEAN CORPUSCULAR HEMOGLOBIN 34.5 pg (26.0-34.0); MEAN CORPUSCULAR HGB CONC 35.3 G/dL (31.0-37.0); MEAN CORPUSCULAR VOLUME 98 fL (80-100); MONOCYTES # (AUTO) 0.6 K/uL (0.1-1.0); NEUTROPHILS # (AUTO) 2.9 K/uL (1.8-7.7); NEUTROPHILS % (AUTO) 59.6 % (40.0-70.0); PLATELET COUNT (AUTO) 112 K/uL (150-450); RED BLOOD CELL COUNT(AUTO) 4.08 MIL/uL (4.50-5.90); RED CELL DISTRIBUTION WIDTH 13.7 % (11.5-14.5); WHITE BLOOD COUNT (AUTO) 4.9 K/uL (4.5-11.0)
[2017-07-08 08:32] LABS: HEMOGLOBIN A1C 5.1 % (4.5-6.2)
[2017-07-08 08:35] VITALS: BP 107/59
[2017-07-08] MEDS: QUEtiapine FUMARATE 25 MG TABLET PO SCH ×2 (09:02→16:39)
[2017-07-08] MEDS: TAMSULOSIN HCL 0.4 MG CAPSULE PO SCH (09:02)
[2017-07-08] MEDS: DOCUSATE SODIUM 100 MG CAPSULE PO SCH (09:02)
[2017-07-08] MEDS: LamoTRIgine 25 MG TABLET PO SCH ×2 (09:02→20:55)
[2017-07-08] MEDS: PARoxetine HCL 20 MG TABLET PO SCH (09:03)
[2017-07-08] MEDS: FLUTICASONE/VILANTEROL 200-25 MCG/INH INHALER [14] IH SCH (09:03)
[2017-07-08 09:53] LABS: ALANINE AMINOTRANSFERASE 380 U/L (12-78); ALBUMIN 3.2 g/dL (3.4-5.0); ANION GAP 7 mmol/L (8-16); ASPARTATE AMINOTRANSFERASE 261 U/L (15-37); BILIRUBIN,TOTAL 0.5 mg/dL (0.1-1.0); CALCIUM, TOTAL 8.8 mg/dL (8.8-10.5); CARBON DIOXIDE 30 mmol/L (22-29); CHLORIDE 101 mmol/L (98-107); CHOL/HDL RATIO 3.3 (4.2-7.3); CREATININE 1.03 mg/dL (0.60-1.30); GLOMERULAR FILTR. RATE CALC > 60 mL/min (>60); POTASSIUM 4.2 mmol/L (3.5-5.1); SODIUM SERUM 138 mmol/L (136-145); THYROID STIMULATING HORMONE 0.78 uIU/mL (0.36-3.74); TOTAL PROTEIN, SERUM 6.6 g/dL (6.4-8.2); UREA NITROGEN, BLOOD 34 mg/dL (7-18)
[2017-07-08 16:07] VITALS: BP 98/85
[2017-07-08] MEDS: QUEtiapine FUMARATE 300 MG TABLET PO SCH (20:54)
[2017-07-08] MEDS: LORazepam 2 MG TABLET PO PRN (21:56)
[2017-07-09 01:22] VITALS: BP 110/68
[2017-07-09] MEDS: OMEPRAZOLE 20 MG CAPSULE PO SCH (06:26)
[2017-07-09 09:43] VITALS: BP 101/58
[2017-07-09] MEDS: QUEtiapine FUMARATE 25 MG TABLET PO SCH ×2 (10:18→16:50)
[2017-07-09] MEDS: PARoxetine HCL 20 MG TABLET PO SCH (10:18)
[2017-07-09] MEDS: DOCUSATE SODIUM 100 MG CAPSULE PO SCH (10:18)
[2017-07-09] MEDS: TAMSULOSIN HCL 0.4 MG CAPSULE PO SCH (10:18)
[2017-07-09] MEDS: LamoTRIgine 25 MG TABLET PO SCH ×2 (10:19→20:42)
[2017-07-09] MEDS: FLUTICASONE/VILANTEROL 200-25 MCG/INH INHALER [14] IH SCH (10:21)
[2017-07-09 17:50] VITALS: BP 122/80
[2017-07-09] MEDS: QUEtiapine FUMARATE 300 MG TABLET PO SCH (20:42)
[2017-07-10] MEDS: OMEPRAZOLE 20 MG CAPSULE PO SCH (06:33)
[2017-07-10 08:25] VITALS: BP 96/54
[2017-07-10] MEDS: TAMSULOSIN HCL 0.4 MG CAPSULE PO SCH (08:44)
[2017-07-10] MEDS: FLUTICASONE/VILANTEROL 200-25 MCG/INH INHALER [14] IH SCH (08:44)
[2017-07-10] MEDS: LamoTRIgine 25 MG TABLET PO SCH ×2 (08:44→21:23)
[2017-07-10] MEDS: DOCUSATE SODIUM 100 MG CAPSULE PO SCH (08:44)
[2017-07-10] MEDS: QUEtiapine FUMARATE 25 MG TABLET PO SCH ×2 (08:44→16:31)
[2017-07-10] MEDS: PARoxetine HCL 20 MG TABLET PO SCH (08:44)
[2017-07-10] MEDS ORDERED: FLUTICASONE/VILANTEROL 200-25 MCG/INH INHALER [14] IH SCH (09:00)
[2017-07-10] MEDS ORDERED: PALI234D IM (09:25)
[2017-07-10 16:00] VITALS: BP 130/74
[2017-07-10] MEDS: LORazepam 2 MG TABLET PO PRN (16:47)
[2017-07-10] MEDS: QUEtiapine FUMARATE 300 MG TABLET PO SCH (21:23)
[2017-07-11] MEDS: OMEPRAZOLE 20 MG CAPSULE PO SCH (06:58)
[2017-07-11 08:14] LABS: HEPATITIS Bs ANTIGEN SCREEN P Negative (Negative); HEPATITIS C AB SCREEN >11.0 s/co ratio (0.0-0.9)
[2017-07-11] MEDS: PARoxetine HCL 20 MG TABLET PO SCH (09:11)
[2017-07-11] MEDS: FLUTICASONE/VILANTEROL 200-25 MCG/INH INHALER [14] IH SCH (09:12)
[2017-07-11] MEDS: TAMSULOSIN HCL 0.4 MG CAPSULE PO SCH (09:12)
[2017-07-11] MEDS: DOCUSATE SODIUM 100 MG CAPSULE PO SCH (09:12)
[2017-07-11] MEDS: QUEtiapine FUMARATE 25 MG TABLET PO SCH (09:12)
[2017-07-11] MEDS: LamoTRIgine 25 MG TABLET PO SCH (09:12)
== END 2017-07-11 13:00 | disposition home or self-care (01) | DRG 750 ==
LOC: B2S 20:48 → EDSTATUS 21:02
PROVIDERS: ADMIT Psychiatry & Neurology Psychiatry; ATTEND Psychiatry & Neurology Child & Adolescent Psychiatry
DX: F25.0 Schizoaffective disorder, bipolar type (principal); E46 Unspecified protein-calorie malnutrition; R45.851 Suicidal ideations; B18.2 Chronic viral hepatitis C; Z28.21 Immunization not carried out because of patient refusal; F12.90 Cannabis use, unspecified, uncomplicated; F15.10 Other stimulant abuse, uncomplicated; F17.200 Nicotine dependence, unspecified, uncomplicated; F41.9 Anxiety disorder, unspecified; G47.00 Insomnia, unspecified; J44.9 Chronic obstructive pulmonary disease, unspecified; K21.9 Gastro-esophageal reflux disease without esophagitis; K59.00 Constipation, unspecified; N40.0 Benign prostatic hyperplasia without lower urinary tract symptoms; Z79.899 Other long term (current) drug therapy; Z91.5 Personal history of self-harm; Z71.41 Alcohol abuse counseling and surveillance of alcoholic; Z71.51 Drug abuse counseling and surveillance of drug abuser; Z72.89 Other problems related to lifestyle; Z63.9 Problem related to primary support group, unspecified; Z56.0 Unemployment, unspecified; Z71.6 Tobacco abuse counseling; Z68.21 Body mass index [BMI] 21.0-21.9, adult
CPT/HCPCS: 80074; 82962; 83036; 84439; 84443; 87081; 90471; 99285

== ENCOUNTER 2017-07-15 18:28 | Inpatient (IN) | payer MEDICAID ==
[~2017-07-15] VITALS: Ht 165.1 cm; Wt 58.5 kg
[2017-07-15 18:48] LABS: BASOPHILS % (AUTO) 0.8 % (0.0-2.0); EOSINOPHILS % (AUTO) 1.9 % (1.0-6.0); HEMATOCRIT 43.7 % (41-53); HEMOGLOBIN 15.4 g/dL (13.5-17.5); LYMPHOCYTES # (AUTO) 1.1 K/uL (1.0-4.8); LYMPHOCYTES % (AUTO) 25.2 % (22.0-44.0); MEAN CORPUSCULAR HEMOGLOBIN 34.5 pg (26.0-34.0); MEAN CORPUSCULAR HGB CONC 35.3 G/dL (31.0-37.0); MEAN CORPUSCULAR VOLUME 98 fL (80-100); MONOCYTES # (AUTO) 0.3 K/uL (0.1-1.0); MONOCYTES % (AUTO) 7.3 % (2.0-9.0); NEUTROPHILS # (AUTO) 2.9 K/uL (1.8-7.7); NEUTROPHILS % (AUTO) 64.8 % (40.0-70.0); PLATELET COUNT (AUTO) 129 K/uL (150-450); RED BLOOD CELL COUNT(AUTO) 4.47 MIL/uL (4.50-5.90); RED CELL DISTRIBUTION WIDTH 13.4 % (11.5-14.5); WHITE BLOOD COUNT (AUTO) 4.4 K/uL (4.5-11.0)
[2017-07-15 18:58] LABS: ANION GAP 14 mmol/L (8-16); CALCIUM, TOTAL 8.9 mg/dL (8.8-10.5); CARBON DIOXIDE 23 mmol/L (22-29); CHLORIDE 101 mmol/L (98-107); GLOMERULAR FILTR. RATE CALC > 60 mL/min (>60); SODIUM SERUM 138 mmol/L (136-145); UREA NITROGEN, BLOOD 22 mg/dL (7-18)
[2017-07-15 19:04] LABS: ALANINE AMINOTRANSFERASE 466 U/L (12-78); ALBUMIN 3.8 g/dL (3.4-5.0); ASPARTATE AMINOTRANSFERASE 267 U/L (15-37); BILIRUBIN,TOTAL 0.4 mg/dL (0.1-1.0); TOTAL PROTEIN, SERUM 8.1 g/dL (6.4-8.2)
[2017-07-15] MEDS ORDERED: HALOPERIDOL LACTATE 5 MG/ML VIAL IM ONE (20:15)
[2017-07-15] MEDS ORDERED: DiphenhydrAMINE HCL 50 MG/ML VIAL IM ONE (20:15)
[2017-07-15] MEDS ORDERED: LORazepam 2 MG/ML VIAL IM ONE (20:15)
[2017-07-15 21:57] VITALS: BP 92/54
[2017-07-16 00:07] VITALS: BP 99/59
[2017-07-16 08:03] VITALS: BP 98/60
[2017-07-16 08:36] LABS: CHOL/HDL RATIO 3.5 (4.2-7.3)
[2017-07-16] MEDS ORDERED: ONDANSETRON HCL 4 MG TABLET PO PRN (10:00)
[2017-07-16] MEDS ORDERED: ALBUTEROL SULFATE HFA 90 MCG/PUFF 8 GM INHALER IH PRN (10:00)
[2017-07-16] MEDS ORDERED: BENZOCAINE/MENTHOL LOZENGE MM PRN (10:00)
[2017-07-16] MEDS ORDERED: CloNIDine HCL 0.1 MG TABLET PO PRN (10:00)
[2017-07-16] MEDS ORDERED: MAGNESIUM HYDROXIDE SUSPENSION 30 ML UDCUP PO PRN (10:00)
[2017-07-16] MEDS ORDERED: PETROLATUM,WHITE 71 GM JELLY TP PRN (10:00)
[2017-07-16] MEDS ORDERED: BACITRACIN 28.4 GM OINTMENT TP PRN (10:00)
[2017-07-16] MEDS: NICOTINE 21 MG/24 HOUR PATCH TD SCH (10:00)
[2017-07-16] MEDS ORDERED: LOPERAMIDE HCL 2 MG CAPSULE PO PRN (10:00)
[2017-07-16] MEDS ORDERED: IBUPROFEN 600 MG TABLET PO PRN (10:00)
[2017-07-16] MEDS ORDERED: ACETAMINOPHEN 325 MG TABLET PO PRN (10:00)
[2017-07-16] MEDS ORDERED: MAG HYDROX/AL HYDROX/SIMETH ES 30 ML SUSPENSION UDCUP PO PRN (10:00)
[2017-07-16] MEDS: OMEPRAZOLE 20 MG CAPSULE PO SCH (10:59)
[2017-07-16] MEDS: TAMSULOSIN HCL 0.4 MG CAPSULE PO SCH (10:59)
[2017-07-16] MEDS: FLUTICASONE/VILANTEROL 200-25 MCG/INH INHALER [14] IH SCH (12:11)
[2017-07-16] MEDS: LORazepam 2 MG TABLET PO PRN ×2 (14:23→21:05)
[2017-07-16 16:00] VITALS: BP 108/68
[2017-07-16] MEDS: QUEtiapine FUMARATE 25 MG TABLET PO SCH (17:04)
[2017-07-16] MEDS: HALOPERIDOL 5 MG TABLET PO PRN (17:04)
[2017-07-16] MEDS: LamoTRIgine 25 MG TABLET PO SCH (21:05)
[2017-07-16] MEDS: QUEtiapine FUMARATE 300 MG TABLET PO SCH (21:05)
[2017-07-17 06:46] VITALS: BP 122/86
[2017-07-17 08:10] VITALS: BP 80/50
[2017-07-17] MEDS: FLUTICASONE/VILANTEROL 200-25 MCG/INH INHALER [14] IH SCH (08:48)
[2017-07-17] MEDS: PARoxetine HCL 20 MG TABLET PO SCH (08:49)
[2017-07-17] MEDS: DOCUSATE SODIUM 100 MG CAPSULE PO SCH (08:49)
[2017-07-17] MEDS: OMEPRAZOLE 20 MG CAPSULE PO SCH (08:49)
[2017-07-17] MEDS: LamoTRIgine 25 MG TABLET PO SCH ×2 (08:49→20:04)
[2017-07-17] MEDS: QUEtiapine FUMARATE 25 MG TABLET PO SCH ×2 (08:49→16:12)
[2017-07-17] MEDS: TAMSULOSIN HCL 0.4 MG CAPSULE PO SCH (08:49)
[2017-07-17] MEDS: NICOTINE 21 MG/24 HOUR PATCH TD SCH (08:50)
[2017-07-17 10:30] VITALS: BP 97/59
[2017-07-17 13:44] VITALS: BP 101/68
[2017-07-17] MEDS: LORazepam 2 MG TABLET PO PRN (13:50)
[2017-07-17 16:00] VITALS: BP 108/65
[2017-07-17] MEDS: ZOLPIDEM TARTRATE 10 MG TABLET PO PRN (20:04)
[2017-07-17] MEDS: QUEtiapine FUMARATE 300 MG TABLET PO SCH (20:04)
[2017-07-18 05:47] VITALS: BP 111/74
[2017-07-18 08:04] VITALS: BP 108/64
[2017-07-18] MEDS: DOCUSATE SODIUM 100 MG CAPSULE PO SCH (08:35)
[2017-07-18] MEDS: TAMSULOSIN HCL 0.4 MG CAPSULE PO SCH (08:35)
[2017-07-18] MEDS: PARoxetine HCL 20 MG TABLET PO SCH (08:35)
[2017-07-18] MEDS: OMEPRAZOLE 20 MG CAPSULE PO SCH (08:35)
[2017-07-18] MEDS: LamoTRIgine 25 MG TABLET PO SCH ×2 (08:36→20:45)
[2017-07-18] MEDS: QUEtiapine FUMARATE 25 MG TABLET PO SCH ×2 (08:36→16:15)
[2017-07-18] MEDS: FLUTICASONE/VILANTEROL 200-25 MCG/INH INHALER [14] IH SCH (08:40)
[2017-07-18] MEDS: NICOTINE 21 MG/24 HOUR PATCH TD SCH (09:00)
[2017-07-18 16:00] VITALS: BP 112/65
[2017-07-18] MEDS: LORazepam 2 MG TABLET PO PRN ×2 (16:15→21:30)
[2017-07-18] MEDS: QUEtiapine FUMARATE 300 MG TABLET PO SCH (20:45)
[2017-07-18] MEDS: ZOLPIDEM TARTRATE 10 MG TABLET PO PRN (21:30)
[2017-07-19 04:30] VITALS: BP 107/79
[2017-07-19 05:22] LABS: HEPATITIS Bs ANTIGEN SCREEN P Negative (Negative); HEPATITIS C AB SCREEN >11.0 s/co ratio (0.0-0.9)
[2017-07-19 08:17] VITALS: BP 105/61
[2017-07-19] MEDS: DOCUSATE SODIUM 100 MG CAPSULE PO SCH (08:22)
[2017-07-19] MEDS: OMEPRAZOLE 20 MG CAPSULE PO SCH (08:22)
[2017-07-19] MEDS: LamoTRIgine 25 MG TABLET PO SCH ×2 (08:22→20:55)
[2017-07-19] MEDS: TAMSULOSIN HCL 0.4 MG CAPSULE PO SCH (08:22)
[2017-07-19] MEDS: PARoxetine HCL 20 MG TABLET PO SCH (08:22)
[2017-07-19] MEDS: QUEtiapine FUMARATE 25 MG TABLET PO SCH ×2 (08:22→16:44)
[2017-07-19] MEDS: FLUTICASONE/VILANTEROL 200-25 MCG/INH INHALER [14] IH SCH (08:23)
[2017-07-19 16:06] VITALS: BP 102/63
[2017-07-19] MEDS: ZOLPIDEM TARTRATE 10 MG TABLET PO PRN (20:55)
[2017-07-19] MEDS: QUEtiapine FUMARATE 300 MG TABLET PO SCH (20:55)
[2017-07-19] MEDS: LORazepam 2 MG TABLET PO PRN (21:48)
[2017-07-20 01:37] VITALS: BP 102/64
[2017-07-20] MEDS: PARoxetine HCL 20 MG TABLET PO SCH (08:08)
[2017-07-20] MEDS: FLUTICASONE/VILANTEROL 200-25 MCG/INH INHALER [14] IH SCH (08:08)
[2017-07-20] MEDS: OMEPRAZOLE 20 MG CAPSULE PO SCH (08:08)
[2017-07-20] MEDS: DOCUSATE SODIUM 100 MG CAPSULE PO SCH (08:08)
[2017-07-20] MEDS: TAMSULOSIN HCL 0.4 MG CAPSULE PO SCH (08:09)
[2017-07-20] MEDS: LORazepam 2 MG TABLET PO PRN ×2 (08:09→16:24)
[2017-07-20] MEDS: LamoTRIgine 25 MG TABLET PO SCH ×2 (08:09→20:25)
[2017-07-20] MEDS: QUEtiapine FUMARATE 25 MG TABLET PO SCH ×2 (08:09→16:19)
[2017-07-20 10:56] VITALS: BP 103/65
[2017-07-20 16:24] VITALS: BP 111/74
[2017-07-20] MEDS: QUEtiapine FUMARATE 300 MG TABLET PO SCH (20:26)
[2017-07-20] MEDS: ZOLPIDEM TARTRATE 10 MG TABLET PO PRN (20:26)
[2017-07-21 04:24] VITALS: BP 101/65
[2017-07-21 08:03] VITALS: BP 108/63
[2017-07-21] MEDS: QUEtiapine FUMARATE 25 MG TABLET PO SCH ×2 (09:03→16:24)
[2017-07-21] MEDS: DOCUSATE SODIUM 100 MG CAPSULE PO SCH (09:03)
[2017-07-21] MEDS: FLUTICASONE/VILANTEROL 200-25 MCG/INH INHALER [14] IH SCH (09:03)
[2017-07-21] MEDS: OMEPRAZOLE 20 MG CAPSULE PO SCH (09:03)
[2017-07-21] MEDS: LamoTRIgine 25 MG TABLET PO SCH ×2 (09:03→20:33)
[2017-07-21] MEDS: TAMSULOSIN HCL 0.4 MG CAPSULE PO SCH (09:03)
[2017-07-21] MEDS: PARoxetine HCL 20 MG TABLET PO SCH (09:04)
[2017-07-21] MEDS: LORazepam 2 MG TABLET PO PRN ×2 (14:21→18:24)
[2017-07-21 16:00] VITALS: BP 110/65
[2017-07-21] MEDS: HALOPERIDOL 5 MG TABLET PO PRN (16:24)
[2017-07-21] MEDS: QUEtiapine FUMARATE 300 MG TABLET PO SCH (20:32)
[2017-07-21] MEDS: ZOLPIDEM TARTRATE 10 MG TABLET PO PRN (20:33)
[2017-07-22 08:03] VITALS: BP 106/64
[2017-07-22] MEDS: TAMSULOSIN HCL 0.4 MG CAPSULE PO SCH (08:50)
[2017-07-22] MEDS: PARoxetine HCL 20 MG TABLET PO SCH (08:50)
[2017-07-22] MEDS: QUEtiapine FUMARATE 25 MG TABLET PO SCH ×2 (08:50→16:24)
[2017-07-22] MEDS: DOCUSATE SODIUM 100 MG CAPSULE PO SCH (08:50)
[2017-07-22] MEDS: LamoTRIgine 25 MG TABLET PO SCH ×2 (08:50→20:44)
[2017-07-22] MEDS: OMEPRAZOLE 20 MG CAPSULE PO SCH (08:50)
[2017-07-22] MEDS: FLUTICASONE/VILANTEROL 200-25 MCG/INH INHALER [14] IH SCH (08:51)
[2017-07-22 16:00] VITALS: BP 113/67
[2017-07-22] MEDS: LORazepam 2 MG TABLET PO PRN ×2 (16:24→23:43)
[2017-07-22] MEDS: HALOPERIDOL 5 MG TABLET PO PRN (16:24)
[2017-07-22] MEDS: QUEtiapine FUMARATE 300 MG TABLET PO SCH (20:44)
[2017-07-22] MEDS: ZOLPIDEM TARTRATE 10 MG TABLET PO PRN (21:25)
[2017-07-23 00:40] VITALS: BP 110/69
[2017-07-23 08:09] VITALS: BP 106/68
[2017-07-23] MEDS: LamoTRIgine 25 MG TABLET PO SCH ×2 (09:21→20:33)
[2017-07-23] MEDS: DOCUSATE SODIUM 100 MG CAPSULE PO SCH (09:21)
[2017-07-23] MEDS: OMEPRAZOLE 20 MG CAPSULE PO SCH (09:21)
[2017-07-23] MEDS: QUEtiapine FUMARATE 25 MG TABLET PO SCH ×2 (09:21→17:19)
[2017-07-23] MEDS: TAMSULOSIN HCL 0.4 MG CAPSULE PO SCH (09:21)
[2017-07-23] MEDS: PARoxetine HCL 20 MG TABLET PO SCH (09:21)
[2017-07-23] MEDS: FLUTICASONE/VILANTEROL 200-25 MCG/INH INHALER [14] IH SCH (09:22)
[2017-07-23] MEDS: LORazepam 2 MG TABLET PO PRN ×2 (14:19→21:34)
[2017-07-23 16:00] VITALS: BP 109/79
[2017-07-23] MEDS: HALOPERIDOL 5 MG TABLET PO PRN (17:19)
[2017-07-23] MEDS: QUEtiapine FUMARATE 300 MG TABLET PO SCH (20:33)
[2017-07-24 05:02] VITALS: BP 118/81
[2017-07-24] MEDS: LamoTRIgine 25 MG TABLET PO SCH (09:07)
[2017-07-24] MEDS: PARoxetine HCL 20 MG TABLET PO SCH (09:07)
[2017-07-24] MEDS: DOCUSATE SODIUM 100 MG CAPSULE PO SCH (09:07)
[2017-07-24] MEDS: TAMSULOSIN HCL 0.4 MG CAPSULE PO SCH (09:07)
[2017-07-24] MEDS: QUEtiapine FUMARATE 25 MG TABLET PO SCH (09:07)
[2017-07-24] MEDS: OMEPRAZOLE 20 MG CAPSULE PO SCH (09:07)
[2017-07-24] MEDS: FLUTICASONE/VILANTEROL 200-25 MCG/INH INHALER [14] IH SCH (09:08)
[2017-07-24 11:07] VITALS: BP 108/65
[2017-07-24] MEDS ORDERED: DSS100 PO (12:18)
[2017-07-24] MEDS ORDERED: OMEP20 PO (12:20)
== END 2017-07-24 13:30 | disposition home or self-care (01) | DRG 750 ==
LOC: EMS 18:30 → EEVIPCON 18:30 → B3A 20:00
PROVIDERS: ADMIT Psychiatry & Neurology Child & Adolescent Psychiatry; ATTEND Psychiatry & Neurology Child & Adolescent Psychiatry
DX: F25.0 Schizoaffective disorder, bipolar type (principal); E44.1 Mild protein-calorie malnutrition; R45.851 Suicidal ideations; B18.2 Chronic viral hepatitis C; F10.129 Alcohol abuse with intoxication, unspecified; Z71.41 Alcohol abuse counseling and surveillance of alcoholic; F12.10 Cannabis abuse, uncomplicated; Z71.51 Drug abuse counseling and surveillance of drug abuser; Z71.6 Tobacco abuse counseling; F15.10 Other stimulant abuse, uncomplicated; F17.200 Nicotine dependence, unspecified, uncomplicated; F22 Delusional disorders; J44.9 Chronic obstructive pulmonary disease, unspecified; K21.9 Gastro-esophageal reflux disease without esophagitis; K59.00 Constipation, unspecified; N40.0 Benign prostatic hyperplasia without lower urinary tract symptoms; Z79.899 Other long term (current) drug therapy; Z91.5 Personal history of self-harm
CPT/HCPCS: 80074; 87081; 96372; 99285; G0480; J1200; J1630; J2060; J3535

== ENCOUNTER 2017-07-27 17:15 | Inpatient (IN) | payer MEDICAID ==
[~2017-07-27] VITALS: Ht 165.1 cm; Wt 57.6 kg
[2017-07-27 18:06] LABS: BASOPHILS % (AUTO) 0.6 % (0.0-2.0); EOSINOPHILS % (AUTO) 2.7 % (1.0-6.0); HEMATOCRIT 46.7 % (41-53); HEMOGLOBIN 16.7 g/dL (13.5-17.5); LYMPHOCYTES # (AUTO) 1.3 K/uL (1.0-4.8); LYMPHOCYTES % (AUTO) 25.8 % (22.0-44.0); MEAN CORPUSCULAR HEMOGLOBIN 34.6 pg (26.0-34.0); MEAN CORPUSCULAR HGB CONC 35.7 G/dL (31.0-37.0); MEAN CORPUSCULAR VOLUME 97 fL (80-100); MONOCYTES # (AUTO) 0.6 K/uL (0.1-1.0); MONOCYTES % (AUTO) 11.3 % (2.0-9.0); NEUTROPHILS # (AUTO) 3.1 K/uL (1.8-7.7); NEUTROPHILS % (AUTO) 59.6 % (40.0-70.0); PLATELET COUNT (AUTO) 145 K/uL (150-450); RED BLOOD CELL COUNT(AUTO) 4.81 MIL/uL (4.50-5.90); RED CELL DISTRIBUTION WIDTH 13.2 % (11.5-14.5); WHITE BLOOD COUNT (AUTO) 5.2 K/uL (4.5-11.0)
[2017-07-27 18:12] LABS: ANION GAP 12 mmol/L (8-16); CALCIUM, TOTAL 9.2 mg/dL (8.8-10.5); CARBON DIOXIDE 26 mmol/L (22-29); CHLORIDE 97 mmol/L (98-107); CREATININE 0.93 mg/dL (0.60-1.30); GLOMERULAR FILTR. RATE CALC > 60 mL/min (>60); POTASSIUM 4.2 mmol/L (3.5-5.1); SODIUM SERUM 135 mmol/L (136-145); UREA NITROGEN, BLOOD 11 mg/dL (7-18)
[2017-07-27 18:20] LABS: ALANINE AMINOTRANSFERASE 227 U/L (12-78); ALBUMIN 4.2 g/dL (3.4-5.0); ASPARTATE AMINOTRANSFERASE 123 U/L (15-37); TOTAL PROTEIN, SERUM 8.5 g/dL (6.4-8.2)
[2017-07-27] MEDS: LORazepam 2 MG TABLET PO PRN (21:04)
[2017-07-27] MEDS: HALOPERIDOL 5 MG TABLET PO PRN (21:04)
[2017-07-27 22:54] VITALS: BP 113/66
[2017-07-28] MEDS ORDERED: -PHARMACY VACCINE NOTE- MISC ONE ×2 (00:15)
[2017-07-28] MEDS ORDERED: PNEUMOCOCCAL VACCINE POLYVALENT 0.5 ML VIAL [PPSV23] IM ONE (00:15)
[2017-07-28] MEDS: LORazepam 2 MG TABLET PO PRN (16:01)
[2017-07-28] MEDS: QUEtiapine FUMARATE 25 MG TABLET PO SCH (16:01)
[2017-07-28 16:25] VITALS: BP 105/65
[2017-07-28] MEDS: QUEtiapine FUMARATE 300 MG TABLET PO SCH (20:10)
[2017-07-29 06:53] VITALS: BP 104/65
[2017-07-29 08:09] VITALS: BP 103/64
[2017-07-29] MEDS: PARoxetine HCL 20 MG TABLET PO SCH (08:29)
[2017-07-29] MEDS: QUEtiapine FUMARATE 25 MG TABLET PO SCH ×2 (08:29→16:15)
[2017-07-29] MEDS ORDERED: PETROLATUM,WHITE 71 GM JELLY TP PRN (09:15)
[2017-07-29] MEDS ORDERED: BACITRACIN 28.4 GM OINTMENT TP PRN (09:15)
[2017-07-29] MEDS ORDERED: MAGNESIUM HYDROXIDE SUSPENSION 30 ML UDCUP PO PRN (09:15)
[2017-07-29] MEDS ORDERED: ALBUTEROL SULFATE HFA 90 MCG/PUFF 8 GM INHALER IH PRN (09:15)
[2017-07-29] MEDS ORDERED: CloNIDine HCL 0.1 MG TABLET PO PRN (09:15)
[2017-07-29] MEDS ORDERED: IBUPROFEN 600 MG TABLET PO PRN (09:15)
[2017-07-29] MEDS ORDERED: LOPERAMIDE HCL 2 MG CAPSULE PO PRN (09:15)
[2017-07-29] MEDS ORDERED: BENZOCAINE/MENTHOL LOZENGE MM PRN (09:15)
[2017-07-29] MEDS ORDERED: ACETAMINOPHEN 325 MG TABLET PO PRN (09:15)
[2017-07-29] MEDS ORDERED: ONDANSETRON HCL 4 MG TABLET PO PRN (09:15)
[2017-07-29] MEDS ORDERED: MAG HYDROX/AL HYDROX/SIMETH ES 30 ML SUSPENSION UDCUP PO PRN (09:15)
[2017-07-29] MEDS: FLUTICASONE/VILANTEROL 200-25 MCG/INH INHALER [14] IH SCH (10:03)
[2017-07-29] MEDS: TAMSULOSIN HCL 0.4 MG CAPSULE PO SCH (10:03)
[2017-07-29] MEDS: OMEPRAZOLE 20 MG CAPSULE PO SCH (10:03)
[2017-07-29] MEDS: LORazepam 2 MG TABLET PO PRN (15:37)
[2017-07-29] MEDS: HALOPERIDOL 5 MG TABLET PO PRN (17:57)
[2017-07-29 18:15] VITALS: BP 122/75
[2017-07-29] MEDS: QUEtiapine FUMARATE 300 MG TABLET PO SCH (20:31)
[2017-07-30 06:01] VITALS: BP 105/68
[2017-07-30 09:27] VITALS: BP 90/58
[2017-07-30] MEDS: QUEtiapine FUMARATE 25 MG TABLET PO SCH ×2 (09:42→17:00)
[2017-07-30] MEDS: OMEPRAZOLE 20 MG CAPSULE PO SCH (09:42)
[2017-07-30] MEDS: FLUTICASONE/VILANTEROL 200-25 MCG/INH INHALER [14] IH SCH (09:42)
[2017-07-30] MEDS: TAMSULOSIN HCL 0.4 MG CAPSULE PO SCH (09:43)
[2017-07-30] MEDS: PARoxetine HCL 20 MG TABLET PO SCH (09:43)
[2017-07-30] MEDS: DOCUSATE SODIUM 100 MG CAPSULE PO SCH (09:43)
[2017-07-30] MEDS: LORazepam 2 MG TABLET PO PRN ×2 (14:09→18:39)
[2017-07-30] MEDS: HALOPERIDOL 5 MG TABLET PO PRN (14:16)
[2017-07-30 16:14] VITALS: BP 107/78
[2017-07-30] MEDS: QUEtiapine FUMARATE 300 MG TABLET PO SCH (20:01)
[2017-07-30] MEDS: ZOLPIDEM TARTRATE 10 MG TABLET PO PRN (20:59)
[2017-07-31 01:08] VITALS: BP 101/59
[2017-07-31] MEDS: QUEtiapine FUMARATE 25 MG TABLET PO SCH ×2 (08:38→16:24)
[2017-07-31] MEDS: DOCUSATE SODIUM 100 MG CAPSULE PO SCH (08:38)
[2017-07-31] MEDS: FLUTICASONE/VILANTEROL 200-25 MCG/INH INHALER [14] IH SCH (08:39)
[2017-07-31] MEDS: TAMSULOSIN HCL 0.4 MG CAPSULE PO SCH (08:39)
[2017-07-31] MEDS: PARoxetine HCL 20 MG TABLET PO SCH (08:39)
[2017-07-31] MEDS: OMEPRAZOLE 20 MG CAPSULE PO SCH (08:39)
[2017-07-31 08:42] VITALS: BP 118/72
[2017-07-31] MEDS: LORazepam 2 MG TABLET PO PRN ×2 (14:28→20:30)
[2017-07-31 14:29] VITALS: BP 112/65
[2017-07-31 16:00] VITALS: BP 104/65
[2017-07-31 16:05] VITALS: BP 104/65
[2017-07-31] MEDS: QUEtiapine FUMARATE 300 MG TABLET PO SCH (20:30)
[2017-07-31] MEDS: ZOLPIDEM TARTRATE 10 MG TABLET PO PRN (21:45)
[2017-08-01 06:15] VITALS: BP 109/63
[2017-08-01] MEDS: PARoxetine HCL 20 MG TABLET PO SCH (08:36)
[2017-08-01] MEDS: DOCUSATE SODIUM 100 MG CAPSULE PO SCH (08:36)
[2017-08-01] MEDS: QUEtiapine FUMARATE 25 MG TABLET PO SCH ×2 (08:36→16:52)
[2017-08-01] MEDS: OMEPRAZOLE 20 MG CAPSULE PO SCH (08:36)
[2017-08-01] MEDS: TAMSULOSIN HCL 0.4 MG CAPSULE PO SCH (08:36)
[2017-08-01] MEDS: FLUTICASONE/VILANTEROL 200-25 MCG/INH INHALER [14] IH SCH (08:37)
[2017-08-01 16:20] VITALS: BP 121/60
[2017-08-01] MEDS: LORazepam 2 MG TABLET PO PRN (16:52)
[2017-08-01] MEDS: QUEtiapine FUMARATE 300 MG TABLET PO SCH (20:16)
[2017-08-01] MEDS: ZOLPIDEM TARTRATE 10 MG TABLET PO PRN (20:16)
[2017-08-02 06:41] VITALS: BP 108/70
[2017-08-02] MEDS: DOCUSATE SODIUM 100 MG CAPSULE PO SCH (08:48)
[2017-08-02] MEDS: TAMSULOSIN HCL 0.4 MG CAPSULE PO SCH (08:48)
[2017-08-02] MEDS: OMEPRAZOLE 20 MG CAPSULE PO SCH (08:48)
[2017-08-02] MEDS: FLUTICASONE/VILANTEROL 200-25 MCG/INH INHALER [14] IH SCH (08:49)
[2017-08-02] MEDS: QUEtiapine FUMARATE 25 MG TABLET PO SCH ×2 (08:49→16:03)
[2017-08-02] MEDS: PARoxetine HCL 20 MG TABLET PO SCH (08:49)
[2017-08-02 13:30] VITALS: BP 107/80
[2017-08-02] MEDS: HALOPERIDOL 5 MG TABLET PO PRN (13:52)
[2017-08-02] MEDS: LORazepam 2 MG TABLET PO PRN (16:03)
[2017-08-02 16:44] VITALS: BP 121/69
[2017-08-02] MEDS: ZOLPIDEM TARTRATE 10 MG TABLET PO PRN (20:08)
[2017-08-02] MEDS: QUEtiapine FUMARATE 300 MG TABLET PO SCH (20:08)
[2017-08-03] MEDS: PARoxetine HCL 20 MG TABLET PO SCH (08:30)
[2017-08-03] MEDS: TAMSULOSIN HCL 0.4 MG CAPSULE PO SCH (08:30)
[2017-08-03] MEDS: DOCUSATE SODIUM 100 MG CAPSULE PO SCH (08:30)
[2017-08-03] MEDS: QUEtiapine FUMARATE 25 MG TABLET PO SCH (08:30)
[2017-08-03] MEDS: FLUTICASONE/VILANTEROL 200-25 MCG/INH INHALER [14] IH SCH (08:30)
[2017-08-03] MEDS: OMEPRAZOLE 20 MG CAPSULE PO SCH (08:30)
[2017-08-03 12:30] VITALS: BP 105/70
[2017-08-03] MEDS: HALOPERIDOL 5 MG TABLET PO PRN (12:49)
[2017-08-03] MEDS: QUEtiapine FUMARATE 100 MG TABLET PO SCH (16:17)
[2017-08-03] MEDS: LORazepam 2 MG TABLET PO PRN (16:17)
[2017-08-03 16:29] VITALS: BP 126/72
[2017-08-03] MEDS: ZOLPIDEM TARTRATE 10 MG TABLET PO PRN (20:05)
[2017-08-03] MEDS ORDERED: QUEtiapine FUMARATE 200 MG TABLET PO SCH (21:00)
[2017-08-04 00:45] VITALS: BP 108/74
[2017-08-04] MEDS: OMEPRAZOLE 20 MG CAPSULE PO SCH (08:43)
[2017-08-04] MEDS: FLUTICASONE/VILANTEROL 200-25 MCG/INH INHALER [14] IH SCH (08:43)
[2017-08-04] MEDS: DOCUSATE SODIUM 100 MG CAPSULE PO SCH (08:44)
[2017-08-04] MEDS: PARoxetine HCL 20 MG TABLET PO SCH (08:44)
[2017-08-04] MEDS: TAMSULOSIN HCL 0.4 MG CAPSULE PO SCH (08:44)
[2017-08-04] MEDS: LORazepam 2 MG TABLET PO PRN ×2 (08:44→14:12)
[2017-08-04] MEDS: QUEtiapine FUMARATE 100 MG TABLET PO SCH ×2 (08:44→17:08)
[2017-08-04 08:46] VITALS: BP 108/84
[2017-08-04 16:28] VITALS: BP 101/61
== END 2017-08-04 17:30 | disposition home or self-care (01) | DRG 750 ==
LOC: EMS 17:20 → B2S 21:25
PROVIDERS: ATTEND Psychiatry & Neurology Child & Adolescent Psychiatry
DX: F25.1 Schizoaffective disorder, depressive type (principal); E44.0 Moderate protein-calorie malnutrition; R45.851 Suicidal ideations; B18.2 Chronic viral hepatitis C; Z28.21 Immunization not carried out because of patient refusal; E03.9 Hypothyroidism, unspecified; F41.9 Anxiety disorder, unspecified; G47.00 Insomnia, unspecified; J44.9 Chronic obstructive pulmonary disease, unspecified; K21.9 Gastro-esophageal reflux disease without esophagitis; K59.00 Constipation, unspecified; N40.0 Benign prostatic hyperplasia without lower urinary tract symptoms; F17.200 Nicotine dependence, unspecified, uncomplicated; Z79.899 Other long term (current) drug therapy; Z59.0 Homelessness; R51 Headache; Z56.0 Unemployment, unspecified; Z71.6 Tobacco abuse counseling; F12.90 Cannabis use, unspecified, uncomplicated; Z71.51 Drug abuse counseling and surveillance of drug abuser; F15.10 Other stimulant abuse, uncomplicated; Z72.89 Other problems related to lifestyle; Z71.41 Alcohol abuse counseling and surveillance of alcoholic; D47.3 Essential (hemorrhagic) thrombocythemia; Z68.21 Body mass index [BMI] 21.0-21.9, adult
CPT/HCPCS: 87081; 99285; G0480

== ENCOUNTER 2017-08-05 22:22 | Inpatient (IN) | payer MEDICAID ==
[~2017-08-05] VITALS: Ht 165.1 cm; Wt 57.7 kg
[2017-08-05 21:28] VITALS: BP 135/80
[~2017-08-05 22:22] MED LIST changes: -LAMO25 PO
[2017-08-05] MEDS ORDERED: HALOPERIDOL 5 MG TABLET PO PRN (22:30)
[2017-08-05 23:01] LABS: BASOPHILS # (AUTO) 0.04 K/uL (0.00-0.20); BASOPHILS % (AUTO) 0.7 % (0.0-2.0); EOSINOPHILS # (AUTO) 0.07 K/uL (0.00-0.70); HEMATOCRIT 45.3 % (41-53); HEMOGLOBIN 15.7 g/dL (13.5-17.5); LYMPHOCYTES # (AUTO) 1.4 K/uL (1.0-4.8); LYMPHOCYTES % (AUTO) 26.4 % (22.0-44.0); MEAN CORPUSCULAR HEMOGLOBIN 33.2 pg (26.0-34.0); MEAN CORPUSCULAR HGB CONC 34.6 G/dL (31.0-37.0); MEAN CORPUSCULAR VOLUME 96 fL (80-100); MONOCYTES # (AUTO) 0.5 K/uL (0.1-1.0); NEUTROPHILS # (AUTO) 3.3 K/uL (1.8-7.7); NEUTROPHILS % (AUTO) 62.4 % (40.0-70.0); PLATELET COUNT (AUTO) 138 K/uL (150-450); RED BLOOD CELL COUNT(AUTO) 4.72 MIL/uL (4.50-5.90); RED CELL DISTRIBUTION WIDTH 12.7 % (11.5-14.5); WHITE BLOOD COUNT (AUTO) 5.2 K/uL (4.5-11.0)
[2017-08-05 23:10] LABS: ANION GAP 9 mmol/L (8-16); CALCIUM, TOTAL 9.1 mg/dL (8.8-10.5); CARBON DIOXIDE 29 mmol/L (22-29); CHLORIDE 97 mmol/L (98-107); CREATININE 1.03 mg/dL (0.60-1.30); GLOMERULAR FILTR. RATE CALC > 60 mL/min (>60); POTASSIUM 4.2 mmol/L (3.5-5.1); SODIUM SERUM 135 mmol/L (136-145); UREA NITROGEN, BLOOD 14 mg/dL (7-18)
[2017-08-05 23:15] LABS: ALANINE AMINOTRANSFERASE 155 U/L (12-78); ALBUMIN 4.1 g/dL (3.4-5.0); ASPARTATE AMINOTRANSFERASE 77 U/L (15-37); BILIRUBIN,TOTAL 0.5 mg/dL (0.1-1.0); TOTAL PROTEIN, SERUM 8.5 g/dL (6.4-8.2)
[2017-08-05] MEDS ORDERED: BACITRACIN 0.9 GM PACKET OINTMENT TP ONE (23:15)
[2017-08-06] MEDS ORDERED: LORazepam 2 MG/ML VIAL IM ONE (00:15)
[2017-08-06] MEDS ORDERED: DiphenhydrAMINE HCL 50 MG/ML VIAL IM ONE (00:15)
[2017-08-06 02:28] VITALS: BP 101/61
[2017-08-06] MEDS ORDERED: ONDANSETRON HCL 4 MG TABLET PO PRN (09:00)
[2017-08-06] MEDS ORDERED: MAGNESIUM HYDROXIDE SUSPENSION 30 ML UDCUP PO PRN (09:00)
[2017-08-06] MEDS ORDERED: CloNIDine HCL 0.1 MG TABLET PO PRN (09:00)
[2017-08-06] MEDS ORDERED: LOPERAMIDE HCL 2 MG CAPSULE PO PRN (09:00)
[2017-08-06] MEDS ORDERED: BENZOCAINE/MENTHOL LOZENGE MM PRN (09:00)
[2017-08-06] MEDS ORDERED: BACITRACIN 28.4 GM OINTMENT TP PRN (09:00)
[2017-08-06] MEDS ORDERED: IBUPROFEN 600 MG TABLET PO PRN (09:00)
[2017-08-06] MEDS ORDERED: ACETAMINOPHEN 325 MG TABLET PO PRN (09:00)
[2017-08-06] MEDS ORDERED: MAG HYDROX/AL HYDROX/SIMETH ES 30 ML SUSPENSION UDCUP PO PRN (09:00)
[2017-08-06] MEDS ORDERED: PETROLATUM,WHITE 71 GM JELLY TP PRN (09:00)
[2017-08-06] MEDS ORDERED: ALBUTEROL SULFATE HFA 90 MCG/PUFF 8 GM INHALER IH PRN (09:00)
[2017-08-06 09:32] VITALS: BP 100/58
[2017-08-06] MEDS: FLUTICASONE/VILANTEROL 200-25 MCG/INH INHALER [14] IH SCH (10:10)
[2017-08-06] MEDS: TAMSULOSIN HCL 0.4 MG CAPSULE PO SCH (10:10)
[2017-08-06] MEDS: OMEPRAZOLE 20 MG CAPSULE PO SCH (10:10)
[2017-08-06] MEDS: CHOLECALCIFEROL (VIT D3) 1,000 UNITS TABLET PO SCH (10:10)
[2017-08-06] MEDS: DOCUSATE SODIUM 100 MG CAPSULE PO SCH (10:10)
[2017-08-06 16:19] VITALS: BP 91/65
[2017-08-06] MEDS: QUEtiapine FUMARATE 100 MG TABLET PO SCH (16:31)
[2017-08-06 18:55] VITALS: BP 108/72
[2017-08-06] MEDS: LORazepam 2 MG TABLET PO PRN (19:02)
[2017-08-06] MEDS: QUEtiapine FUMARATE 200 MG TABLET PO SCH (20:33)
[2017-08-07] VITALS: BP 118/68
[2017-08-07 08:00] VITALS: BP 90/60
[2017-08-07] MEDS: PARoxetine HCL 20 MG TABLET PO SCH (09:12)
[2017-08-07] MEDS: DOCUSATE SODIUM 100 MG CAPSULE PO SCH (09:12)
[2017-08-07] MEDS: CHOLECALCIFEROL (VIT D3) 1,000 UNITS TABLET PO SCH (09:12)
[2017-08-07] MEDS: FLUTICASONE/VILANTEROL 200-25 MCG/INH INHALER [14] IH SCH (09:13)
[2017-08-07] MEDS: QUEtiapine FUMARATE 100 MG TABLET PO SCH ×2 (09:13→16:18)
[2017-08-07] MEDS: OMEPRAZOLE 20 MG CAPSULE PO SCH (09:13)
[2017-08-07] MEDS: TAMSULOSIN HCL 0.4 MG CAPSULE PO SCH (09:13)
[2017-08-07] MEDS: LORazepam 2 MG TABLET PO PRN ×2 (15:04→20:17)
[2017-08-07 16:00] VITALS: BP 103/67
[2017-08-07] MEDS: QUEtiapine FUMARATE 200 MG TABLET PO SCH (20:17)
[2017-08-07] MEDS: ZOLPIDEM TARTRATE 10 MG TABLET PO PRN (20:45)
[2017-08-08 03:25] VITALS: BP 104/67
[2017-08-08 08:43] VITALS: BP 104/64
[2017-08-08] MEDS: OMEPRAZOLE 20 MG CAPSULE PO SCH (08:48)
[2017-08-08] MEDS: TAMSULOSIN HCL 0.4 MG CAPSULE PO SCH (08:48)
[2017-08-08] MEDS: LORazepam 2 MG TABLET PO PRN ×2 (08:48→16:27)
[2017-08-08] MEDS: DOCUSATE SODIUM 100 MG CAPSULE PO SCH (08:49)
[2017-08-08] MEDS: FLUTICASONE/VILANTEROL 200-25 MCG/INH INHALER [14] IH SCH (08:49)
[2017-08-08] MEDS: QUEtiapine FUMARATE 100 MG TABLET PO SCH ×2 (08:49→16:09)
[2017-08-08] MEDS: CHOLECALCIFEROL (VIT D3) 1,000 UNITS TABLET PO SCH (08:49)
[2017-08-08] MEDS: PARoxetine HCL 20 MG TABLET PO SCH (08:49)
[2017-08-08 16:00] VITALS: BP 108/66
[2017-08-08] MEDS: QUEtiapine FUMARATE 200 MG TABLET PO SCH (20:14)
[2017-08-08] MEDS: ZOLPIDEM TARTRATE 10 MG TABLET PO PRN (20:49)
[2017-08-09 01:59] VITALS: BP 102/60
[2017-08-09 08:39] VITALS: BP 101/66
[2017-08-09] MEDS: PARoxetine HCL 20 MG TABLET PO SCH (09:21)
[2017-08-09] MEDS: QUEtiapine FUMARATE 100 MG TABLET PO SCH ×2 (09:21→16:04)
[2017-08-09] MEDS: TAMSULOSIN HCL 0.4 MG CAPSULE PO SCH (09:21)
[2017-08-09] MEDS: DOCUSATE SODIUM 100 MG CAPSULE PO SCH (09:22)
[2017-08-09] MEDS: LORazepam 2 MG TABLET PO PRN ×2 (09:22→16:04)
[2017-08-09] MEDS: OMEPRAZOLE 20 MG CAPSULE PO SCH (09:22)
[2017-08-09] MEDS: CHOLECALCIFEROL (VIT D3) 1,000 UNITS TABLET PO SCH (09:22)
[2017-08-09] MEDS: FLUTICASONE/VILANTEROL 200-25 MCG/INH INHALER [14] IH SCH (09:23)
[2017-08-09 16:00] VITALS: BP 124/71
[2017-08-09] MEDS: ZOLPIDEM TARTRATE 10 MG TABLET PO PRN (20:27)
[2017-08-09] MEDS: QUEtiapine FUMARATE 200 MG TABLET PO SCH (20:27)
[2017-08-10 07:03] VITALS: BP 110/70
[2017-08-10] MEDS: TAMSULOSIN HCL 0.4 MG CAPSULE PO SCH (08:15)
[2017-08-10] MEDS: PARoxetine HCL 20 MG TABLET PO SCH (08:15)
[2017-08-10] MEDS: CHOLECALCIFEROL (VIT D3) 1,000 UNITS TABLET PO SCH (08:15)
[2017-08-10] MEDS: QUEtiapine FUMARATE 100 MG TABLET PO SCH ×2 (08:16→16:29)
[2017-08-10] MEDS: OMEPRAZOLE 20 MG CAPSULE PO SCH (08:16)
[2017-08-10] MEDS: DOCUSATE SODIUM 100 MG CAPSULE PO SCH (08:16)
[2017-08-10] MEDS: FLUTICASONE/VILANTEROL 200-25 MCG/INH INHALER [14] IH SCH (08:17)
[2017-08-10] MEDS: LORazepam 2 MG TABLET PO PRN ×2 (08:18→16:29)
[2017-08-10 08:50] VITALS: BP 96/56
[2017-08-10 12:05] VITALS: BP 112/63
[2017-08-10 17:26] VITALS: BP 101/60
[2017-08-10] MEDS: QUEtiapine FUMARATE 200 MG TABLET PO SCH (20:07)
[2017-08-11 01:00] VITALS: BP 102/60
[2017-08-11] MEDS: QUEtiapine FUMARATE 100 MG TABLET PO SCH ×2 (08:26→16:06)
[2017-08-11] MEDS: OMEPRAZOLE 20 MG CAPSULE PO SCH (08:26)
[2017-08-11] MEDS: TAMSULOSIN HCL 0.4 MG CAPSULE PO SCH (08:26)
[2017-08-11] MEDS: DOCUSATE SODIUM 100 MG CAPSULE PO SCH (08:26)
[2017-08-11] MEDS: CHOLECALCIFEROL (VIT D3) 1,000 UNITS TABLET PO SCH (08:26)
[2017-08-11] MEDS: FLUTICASONE/VILANTEROL 200-25 MCG/INH INHALER [14] IH SCH (08:26)
[2017-08-11] MEDS: PARoxetine HCL 20 MG TABLET PO SCH (08:26)
[2017-08-11 09:54] VITALS: BP 104/60
[2017-08-11 16:15] VITALS: BP 113/68
[2017-08-11] MEDS: LORazepam 2 MG TABLET PO PRN ×2 (17:47→22:11)
[2017-08-11] MEDS: QUEtiapine FUMARATE 200 MG TABLET PO SCH (20:34)
[2017-08-12 00:30] VITALS: BP 100/60
[2017-08-12 08:48] VITALS: BP 107/60
[2017-08-12] MEDS: PARoxetine HCL 20 MG TABLET PO SCH (09:29)
[2017-08-12] MEDS: DOCUSATE SODIUM 100 MG CAPSULE PO SCH (09:29)
[2017-08-12] MEDS: QUEtiapine FUMARATE 100 MG TABLET PO SCH ×2 (09:29→16:12)
[2017-08-12] MEDS: FLUTICASONE/VILANTEROL 200-25 MCG/INH INHALER [14] IH SCH (09:29)
[2017-08-12] MEDS: TAMSULOSIN HCL 0.4 MG CAPSULE PO SCH (09:29)
[2017-08-12] MEDS: CHOLECALCIFEROL (VIT D3) 1,000 UNITS TABLET PO SCH (09:29)
[2017-08-12] MEDS: OMEPRAZOLE 20 MG CAPSULE PO SCH (09:29)
[2017-08-12] MEDS: LORazepam 2 MG TABLET PO PRN (15:01)
[2017-08-12 16:27] VITALS: BP 102/61
[2017-08-12] MEDS: QUEtiapine FUMARATE 200 MG TABLET PO SCH (20:32)
[2017-08-12] MEDS: ZOLPIDEM TARTRATE 10 MG TABLET PO PRN (21:19)
[2017-08-13 00:33] VITALS: BP 104/60
[2017-08-13 08:48] VITALS: BP 98/57
[2017-08-13] MEDS: PARoxetine HCL 20 MG TABLET PO SCH (09:14)
[2017-08-13] MEDS: OMEPRAZOLE 20 MG CAPSULE PO SCH (09:14)
[2017-08-13] MEDS: TAMSULOSIN HCL 0.4 MG CAPSULE PO SCH (09:14)
[2017-08-13] MEDS: CHOLECALCIFEROL (VIT D3) 1,000 UNITS TABLET PO SCH (09:15)
[2017-08-13] MEDS: QUEtiapine FUMARATE 100 MG TABLET PO SCH ×2 (09:15→16:10)
[2017-08-13] MEDS: DOCUSATE SODIUM 100 MG CAPSULE PO SCH (09:15)
[2017-08-13] MEDS: FLUTICASONE/VILANTEROL 200-25 MCG/INH INHALER [14] IH SCH (09:15)
[2017-08-13 13:56] VITALS: BP 118/75
[2017-08-13] MEDS: LORazepam 2 MG TABLET PO PRN ×2 (13:57→20:23)
[2017-08-13 16:14] VITALS: BP 111/64
[2017-08-13] MEDS: QUEtiapine FUMARATE 200 MG TABLET PO SCH (20:23)
[2017-08-13] MEDS: ZOLPIDEM TARTRATE 10 MG TABLET PO PRN (20:52)
[2017-08-14 01:12] VITALS: BP 103/68
[2017-08-14] MEDS: LORazepam 2 MG TABLET PO PRN (08:34)
[2017-08-14] MEDS: CHOLECALCIFEROL (VIT D3) 1,000 UNITS TABLET PO SCH (08:35)
[2017-08-14] MEDS: DOCUSATE SODIUM 100 MG CAPSULE PO SCH (08:35)
[2017-08-14] MEDS: TAMSULOSIN HCL 0.4 MG CAPSULE PO SCH (08:35)
[2017-08-14] MEDS: QUEtiapine FUMARATE 100 MG TABLET PO SCH (08:35)
[2017-08-14] MEDS: PARoxetine HCL 20 MG TABLET PO SCH (08:35)
[2017-08-14] MEDS: OMEPRAZOLE 20 MG CAPSULE PO SCH (08:35)
[2017-08-14] MEDS: FLUTICASONE/VILANTEROL 200-25 MCG/INH INHALER [14] IH SCH (08:36)
[2017-08-14 08:40] VITALS: BP 100/63
== END 2017-08-14 15:17 | disposition home or self-care (01) | DRG 750 ==
LOC: EMS 22:24 → B2S 23:50
PROVIDERS: ADMIT Psychiatry & Neurology Child & Adolescent Psychiatry; ATTEND Psychiatry & Neurology Child & Adolescent Psychiatry
DX: F25.0 Schizoaffective disorder, bipolar type (principal); E44.0 Moderate protein-calorie malnutrition; R45.851 Suicidal ideations; B18.2 Chronic viral hepatitis C; F10.229 Alcohol dependence with intoxication, unspecified; F12.90 Cannabis use, unspecified, uncomplicated; F17.200 Nicotine dependence, unspecified, uncomplicated; F23 Brief psychotic disorder; G47.00 Insomnia, unspecified; J44.9 Chronic obstructive pulmonary disease, unspecified; K21.9 Gastro-esophageal reflux disease without esophagitis; K59.00 Constipation, unspecified; N40.0 Benign prostatic hyperplasia without lower urinary tract symptoms; Z79.899 Other long term (current) drug therapy; Z91.5 Personal history of self-harm; Z68.21 Body mass index [BMI] 21.0-21.9, adult; Z71.6 Tobacco abuse counseling; Z71.41 Alcohol abuse counseling and surveillance of alcoholic; Z71.51 Drug abuse counseling and surveillance of drug abuser
CPT/HCPCS: 87081; G0480; J1200; J2060

== ENCOUNTER 2017-08-16 18:06 | Inpatient (IN) | payer MEDICAID ==
[~2017-08-16] VITALS: Ht 165.1 cm; Wt 57.0 kg
[~2017-08-16 18:06] MED LIST changes: -DSS100 PO
[2017-08-16 19:20] LABS: BASOPHILS % (AUTO) 0.1 % (0.0-2.0); EOSINOPHILS % (AUTO) 0.8 % (1.0-6.0); HEMATOCRIT 46.1 % (41-53); LYMPHOCYTES # (AUTO) 0.6 K/uL (1.0-4.8); LYMPHOCYTES % (AUTO) 11.5 % (22.0-44.0); MEAN CORPUSCULAR HEMOGLOBIN 33.5 pg (26.0-34.0); MEAN CORPUSCULAR HGB CONC 34.7 G/dL (31.0-37.0); MEAN CORPUSCULAR VOLUME 97 fL (80-100); MONOCYTES # (AUTO) 0.7 K/uL (0.1-1.0); MONOCYTES % (AUTO) 12.8 % (2.0-9.0); NEUTROPHILS # (AUTO) 4.2 K/uL (1.8-7.7); NEUTROPHILS % (AUTO) 74.8 % (40.0-70.0); PLATELET COUNT (AUTO) 134 K/uL (150-450); RED BLOOD CELL COUNT(AUTO) 4.77 MIL/uL (4.50-5.90); RED CELL DISTRIBUTION WIDTH 12.6 % (11.5-14.5)
[2017-08-16 19:33] LABS: ANION GAP 9 mmol/L (8-16); CALCIUM, TOTAL 9.3 mg/dL (8.8-10.5); CARBON DIOXIDE 28 mmol/L (22-29); CHLORIDE 98 mmol/L (98-107); CREATININE 1.01 mg/dL (0.60-1.30); GLOMERULAR FILTR. RATE CALC > 60 mL/min (>60); GLUCOSE,RANDOM 135 mg/dL (70-110); POTASSIUM 3.8 mmol/L (3.5-5.1); SODIUM SERUM 135 mmol/L (136-145); UREA NITROGEN, BLOOD 13 mg/dL (7-18)
[2017-08-16 19:48] LABS: ALANINE AMINOTRANSFERASE 427 U/L (12-78); ALBUMIN 4.3 g/dL (3.4-5.0); ALKALINE PHOSPHATASE 102 U/L (46-116); ASPARTATE AMINOTRANSFERASE 232 U/L (15-37); BILIRUBIN,TOTAL 1.2 mg/dL (0.1-1.0); THYROID STIMULATING HORMONE 1.31 uIU/mL (0.36-3.74); TOTAL PROTEIN, SERUM 8.5 g/dL (6.4-8.2)
[2017-08-16] MEDS ORDERED: DiphenhydrAMINE HCL 50 MG CAPSULE PO ONE (21:00)
[2017-08-16] MEDS ORDERED: LORazepam 2 MG TABLET PO ONE (21:00)
[2017-08-16] MEDS ORDERED: HALOPERIDOL 5 MG TABLET PO ONE (21:00)
[2017-08-17 00:34] VITALS: BP 107/71
[2017-08-17] MEDS ORDERED: INFLUENZA VIRUS VACCINE QVS 2017-18 (3YR+)/PF 60 MCG/0.5 ML SYRINGE IM ONE (03:15)
[2017-08-17] MEDS ORDERED: MAGNESIUM HYDROXIDE SUSPENSION 30 ML UDCUP PO PRN (06:45)
[2017-08-17] MEDS ORDERED: ACETAMINOPHEN 325 MG TABLET PO PRN (06:45)
[2017-08-17] MEDS ORDERED: ALBUTEROL SULFATE HFA 90 MCG/PUFF 8 GM INHALER IH PRN (06:45)
[2017-08-17] MEDS ORDERED: BACITRACIN 28.4 GM OINTMENT TP PRN (06:45)
[2017-08-17] MEDS ORDERED: BENZOCAINE/MENTHOL LOZENGE [8 LOZENGES/PACKET] MM PRN (06:45)
[2017-08-17] MEDS ORDERED: ONDANSETRON HCL 4 MG TABLET PO PRN (06:45)
[2017-08-17] MEDS ORDERED: MAG HYDROX/AL HYDROX/SIMETH ES 30 ML SUSPENSION UDCUP PO PRN (06:45)
[2017-08-17] MEDS ORDERED: CloNIDine HCL 0.1 MG TABLET PO PRN (06:45)
[2017-08-17] MEDS ORDERED: IBUPROFEN 600 MG TABLET PO PRN (06:45)
[2017-08-17] MEDS ORDERED: PETROLATUM,WHITE 71 GM JELLY TP PRN (06:45)
[2017-08-17] MEDS ORDERED: LOPERAMIDE HCL 2 MG CAPSULE PO PRN (06:45)
[2017-08-17 07:47] LABS: CHOL/HDL RATIO 2.5 (4.2-7.3)
[2017-08-17 09:12] VITALS: BP 102/64
[2017-08-17] MEDS: TAMSULOSIN HCL 0.4 MG CAPSULE PO SCH (11:56)
[2017-08-17] MEDS: DOCUSATE SODIUM 100 MG CAPSULE PO SCH (11:57)
[2017-08-17] MEDS: FLUTICASONE/VILANTEROL 200-25 MCG/INH INHALER [14] IH SCH (11:57)
[2017-08-17] MEDS: OMEPRAZOLE 20 MG CAPSULE PO SCH (11:57)
[2017-08-17] MEDS: CHOLECALCIFEROL (VIT D3) 1,000 UNITS TABLET PO SCH (11:57)
[2017-08-17] MEDS ORDERED: QUET200T PO (17:30)
[2017-08-17] MEDS: QUEtiapine FUMARATE 200 MG TABLET PO SCH (21:39)
[2017-08-17] MEDS: LORazepam 2 MG TABLET PO PRN (21:39)
[2017-08-18 01:47] VITALS: BP 103/70
[2017-08-18] MEDS: TAMSULOSIN HCL 0.4 MG CAPSULE PO SCH (08:41)
[2017-08-18] MEDS: OMEPRAZOLE 20 MG CAPSULE PO SCH (08:41)
[2017-08-18] MEDS: QUEtiapine FUMARATE 100 MG TABLET PO SCH ×2 (08:41→16:54)
[2017-08-18] MEDS: PARoxetine HCL 20 MG TABLET PO SCH (08:41)
[2017-08-18] MEDS: DOCUSATE SODIUM 100 MG CAPSULE PO SCH (08:41)
[2017-08-18] MEDS: CHOLECALCIFEROL (VIT D3) 1,000 UNITS TABLET PO SCH (08:41)
[2017-08-18] MEDS: FLUTICASONE/VILANTEROL 200-25 MCG/INH INHALER [14] IH SCH (09:00)
[2017-08-18 09:30] VITALS: BP 94/54
[2017-08-18] MEDS: LORazepam 2 MG TABLET PO PRN (17:45)
[2017-08-18 19:17] VITALS: BP 105/68
[2017-08-18] MEDS: QUEtiapine FUMARATE 200 MG TABLET PO SCH (20:17)
[2017-08-19] MEDS: LORazepam 2 MG TABLET PO PRN ×2 (00:08→18:00)
[2017-08-19 03:54] VITALS: BP 103/68
[2017-08-19] MEDS: CHOLECALCIFEROL (VIT D3) 1,000 UNITS TABLET PO SCH (08:30)
[2017-08-19] MEDS: QUEtiapine FUMARATE 100 MG TABLET PO SCH ×2 (08:30→17:11)
[2017-08-19] MEDS: TAMSULOSIN HCL 0.4 MG CAPSULE PO SCH (08:30)
[2017-08-19] MEDS: PARoxetine HCL 20 MG TABLET PO SCH (08:30)
[2017-08-19] MEDS: OMEPRAZOLE 20 MG CAPSULE PO SCH (08:30)
[2017-08-19] MEDS: DOCUSATE SODIUM 100 MG CAPSULE PO SCH (08:30)
[2017-08-19] MEDS: FLUTICASONE/VILANTEROL 200-25 MCG/INH INHALER [14] IH SCH (09:00)
[2017-08-19 10:03] VITALS: BP 108/65
[2017-08-19 17:26] VITALS: BP 111/78
[2017-08-19] MEDS: QUEtiapine FUMARATE 200 MG TABLET PO SCH (21:29)
[2017-08-20] MEDS: FLUTICASONE/VILANTEROL 200-25 MCG/INH INHALER [14] IH SCH (08:13)
[2017-08-20] MEDS: PARoxetine HCL 20 MG TABLET PO SCH (08:13)
[2017-08-20] MEDS: TAMSULOSIN HCL 0.4 MG CAPSULE PO SCH (08:13)
[2017-08-20] MEDS: DOCUSATE SODIUM 100 MG CAPSULE PO SCH (08:13)
[2017-08-20] MEDS: QUEtiapine FUMARATE 100 MG TABLET PO SCH ×2 (08:14→16:38)
[2017-08-20] MEDS: CHOLECALCIFEROL (VIT D3) 1,000 UNITS TABLET PO SCH (08:14)
[2017-08-20] MEDS: OMEPRAZOLE 20 MG CAPSULE PO SCH (08:14)
[2017-08-20] MEDS: LORazepam 2 MG TABLET PO PRN ×2 (08:15→21:19)
[2017-08-20 09:02] VITALS: BP 92/57
[2017-08-20 17:58] VITALS: BP 101/69
[2017-08-20] MEDS: QUEtiapine FUMARATE 200 MG TABLET PO SCH (20:14)
[2017-08-20 21:15] VITALS: BP 116/65
[2017-08-21 08:00] VITALS: BP 108/67
[2017-08-21] MEDS: FLUTICASONE/VILANTEROL 200-25 MCG/INH INHALER [14] IH SCH (09:00)
[2017-08-21] MEDS: OMEPRAZOLE 20 MG CAPSULE PO SCH (09:25)
[2017-08-21] MEDS: CHOLECALCIFEROL (VIT D3) 1,000 UNITS TABLET PO SCH (09:25)
[2017-08-21] MEDS: QUEtiapine FUMARATE 100 MG TABLET PO SCH ×2 (09:25→16:49)
[2017-08-21] MEDS: DOCUSATE SODIUM 100 MG CAPSULE PO SCH (09:25)
[2017-08-21] MEDS: PARoxetine HCL 20 MG TABLET PO SCH (09:25)
[2017-08-21] MEDS: TAMSULOSIN HCL 0.4 MG CAPSULE PO SCH (09:25)
[2017-08-21] MEDS: LORazepam 2 MG TABLET PO PRN ×2 (15:07→20:09)
[2017-08-21] MEDS: QUEtiapine FUMARATE 200 MG TABLET PO SCH (20:09)
[2017-08-21 20:21] VITALS: BP 103/74
[2017-08-21] MEDS: ZOLPIDEM TARTRATE 10 MG TABLET PO PRN (23:10)
[2017-08-21] MEDS: HALOPERIDOL 5 MG TABLET PO PRN (23:10)
[2017-08-22 08:00] VITALS: BP 108/59
[2017-08-22] MEDS: OMEPRAZOLE 20 MG CAPSULE PO SCH (08:23)
[2017-08-22] MEDS: QUEtiapine FUMARATE 100 MG TABLET PO SCH ×2 (08:23→17:25)
[2017-08-22] MEDS: CHOLECALCIFEROL (VIT D3) 1,000 UNITS TABLET PO SCH (08:23)
[2017-08-22] MEDS: DOCUSATE SODIUM 100 MG CAPSULE PO SCH (08:23)
[2017-08-22] MEDS: PARoxetine HCL 20 MG TABLET PO SCH (08:23)
[2017-08-22] MEDS: TAMSULOSIN HCL 0.4 MG CAPSULE PO SCH (08:23)
[2017-08-22] MEDS: LORazepam 2 MG TABLET PO PRN ×2 (08:24→18:08)
[2017-08-22] MEDS: FLUTICASONE/VILANTEROL 200-25 MCG/INH INHALER [14] IH SCH (08:26)
[2017-08-22 18:44] VITALS: BP 101/63
[2017-08-22] MEDS: QUEtiapine FUMARATE 200 MG TABLET PO SCH (20:36)
[2017-08-22] MEDS: ZOLPIDEM TARTRATE 10 MG TABLET PO PRN (21:17)
[2017-08-23] MEDS: PARoxetine HCL 20 MG TABLET PO SCH (08:27)
[2017-08-23] MEDS: QUEtiapine FUMARATE 100 MG TABLET PO SCH ×2 (08:27→17:18)
[2017-08-23] MEDS: TAMSULOSIN HCL 0.4 MG CAPSULE PO SCH (08:27)
[2017-08-23] MEDS: DOCUSATE SODIUM 100 MG CAPSULE PO SCH (08:28)
[2017-08-23] MEDS: OMEPRAZOLE 20 MG CAPSULE PO SCH (08:28)
[2017-08-23] MEDS: CHOLECALCIFEROL (VIT D3) 1,000 UNITS TABLET PO SCH (08:28)
[2017-08-23] MEDS: FLUTICASONE/VILANTEROL 200-25 MCG/INH INHALER [14] IH SCH (08:28)
[2017-08-23] MEDS: LORazepam 2 MG TABLET PO PRN ×2 (09:00→17:18)
[2017-08-23 10:37] VITALS: BP 113/78
[2017-08-23 19:57] VITALS: BP 107/75
[2017-08-23] MEDS: QUEtiapine FUMARATE 200 MG TABLET PO SCH (21:54)
[2017-08-23] MEDS: HALOPERIDOL 5 MG TABLET PO PRN (23:38)
[2017-08-23] MEDS: ZOLPIDEM TARTRATE 10 MG TABLET PO PRN (23:38)
[2017-08-24 00:02] VITALS: BP 121/75
[2017-08-24] MEDS: DOCUSATE SODIUM 100 MG CAPSULE PO SCH (09:03)
[2017-08-24] MEDS: PARoxetine HCL 20 MG TABLET PO SCH (09:03)
[2017-08-24] MEDS: QUEtiapine FUMARATE 100 MG TABLET PO SCH ×2 (09:03→16:05)
[2017-08-24] MEDS: TAMSULOSIN HCL 0.4 MG CAPSULE PO SCH (09:03)
[2017-08-24] MEDS: CHOLECALCIFEROL (VIT D3) 1,000 UNITS TABLET PO SCH (09:04)
[2017-08-24] MEDS: OMEPRAZOLE 20 MG CAPSULE PO SCH (09:04)
[2017-08-24] MEDS: FLUTICASONE/VILANTEROL 200-25 MCG/INH INHALER [14] IH SCH (09:05)
[2017-08-24 10:37] VITALS: BP 96/65
[2017-08-24] MEDS: LORazepam 2 MG TABLET PO PRN ×2 (16:05→22:01)
[2017-08-24] MEDS: QUEtiapine FUMARATE 200 MG TABLET PO SCH (20:22)
[2017-08-25] MEDS: OMEPRAZOLE 20 MG CAPSULE PO SCH (08:53)
[2017-08-25] MEDS: TAMSULOSIN HCL 0.4 MG CAPSULE PO SCH (08:53)
[2017-08-25] MEDS: DOCUSATE SODIUM 100 MG CAPSULE PO SCH (08:53)
[2017-08-25] MEDS: QUEtiapine FUMARATE 100 MG TABLET PO SCH ×2 (08:53→16:04)
[2017-08-25] MEDS: CHOLECALCIFEROL (VIT D3) 1,000 UNITS TABLET PO SCH (08:53)
[2017-08-25] MEDS: FLUTICASONE/VILANTEROL 200-25 MCG/INH INHALER [14] IH SCH (08:53)
[2017-08-25] MEDS: PARoxetine HCL 20 MG TABLET PO SCH (08:53)
[2017-08-25 08:57] VITALS: BP 130/70
[2017-08-25] MEDS: LORazepam 2 MG TABLET PO PRN (16:03)
[2017-08-25] MEDS: ZOLPIDEM TARTRATE 10 MG TABLET PO PRN (21:04)
[2017-08-25] MEDS: QUEtiapine FUMARATE 200 MG TABLET PO SCH (21:04)
[2017-08-25] MEDS: HALOPERIDOL 5 MG TABLET PO PRN (21:04)
[2017-08-25 21:20] VITALS: BP 106/75
[2017-08-26 08:25] VITALS: BP 124/76
[2017-08-26] MEDS ORDERED: VITAD1000 PO (09:55)
[2017-08-26] MEDS ORDERED: DSS100 PO (09:56)
[2017-08-26] MEDS: QUEtiapine FUMARATE 100 MG TABLET PO SCH (10:14)
[2017-08-26] MEDS: PARoxetine HCL 20 MG TABLET PO SCH (10:14)
[2017-08-26] MEDS: TAMSULOSIN HCL 0.4 MG CAPSULE PO SCH (10:14)
[2017-08-26] MEDS: CHOLECALCIFEROL (VIT D3) 1,000 UNITS TABLET PO SCH (10:14)
[2017-08-26] MEDS: DOCUSATE SODIUM 100 MG CAPSULE PO SCH (10:14)
[2017-08-26] MEDS: OMEPRAZOLE 20 MG CAPSULE PO SCH (10:15)
[2017-08-26] MEDS: FLUTICASONE/VILANTEROL 200-25 MCG/INH INHALER [14] IH SCH (10:15)
== END 2017-08-26 14:20 | disposition home or self-care (01) | DRG 750 ==
LOC: EMS 18:08 → 3EI 22:14
PROVIDERS: ADMIT Psychiatry & Neurology Psychiatry; ATTEND Psychiatry & Neurology Child & Adolescent Psychiatry
DX: F25.1 Schizoaffective disorder, depressive type (principal); F23 Brief psychotic disorder; R45.851 Suicidal ideations; B18.2 Chronic viral hepatitis C; E03.9 Hypothyroidism, unspecified; F12.90 Cannabis use, unspecified, uncomplicated; Z71.51 Drug abuse counseling and surveillance of drug abuser; F15.90 Other stimulant use, unspecified, uncomplicated; F17.200 Nicotine dependence, unspecified, uncomplicated; Z71.6 Tobacco abuse counseling; G47.00 Insomnia, unspecified; J44.9 Chronic obstructive pulmonary disease, unspecified; K21.9 Gastro-esophageal reflux disease without esophagitis; N40.0 Benign prostatic hyperplasia without lower urinary tract symptoms; Z72.89 Other problems related to lifestyle; Z71.41 Alcohol abuse counseling and surveillance of alcoholic; Z28.21 Immunization not carried out because of patient refusal
CPT/HCPCS: 84443; 99285; G0480

== ENCOUNTER 2017-08-28 22:23 | Inpatient (IN) | payer MEDICAID ==
[~2017-08-28] VITALS: Ht 165.1 cm; Wt 55.3 kg
[~2017-08-28 22:23] MED LIST changes: +DSS100 PO; +QUET200T PO; -QUET300T2 PO; +VITAD1000 PO
[2017-08-28 23:34] LABS: APPEARANCE,URINE CLEAR (CLEAR); BILIRUBIN,URINE NEGATIVE (NEGATIVE); GLUCOSE, URINE (UA) NEGATIVE (NEGATIVE); KETONES,URINE NEGATIVE (NEGATIVE); LEUKOCYTE ESTERASE ,URINE NEGATIVE (NEGATIVE); NITRATE,URINE NEGATIVE (NEGATIVE); OCCULT BLOOD,URINE NEGATIVE (NEGATIVE); PROTEIN,URINE NEGATIVE (NEGATIVE)
[2017-08-28 23:34] LABS: BASOPHILS % (AUTO) 0.5 % (0.0-2.0); EOSINOPHILS % (AUTO) 0.1 % (1.0-6.0); HEMATOCRIT 45.6 % (41-53); HEMOGLOBIN 15.9 g/dL (13.5-17.5); LYMPHOCYTES # (AUTO) 0.9 K/uL (1.0-4.8); LYMPHOCYTES % (AUTO) 19.2 % (22.0-44.0); MEAN CORPUSCULAR HEMOGLOBIN 33.6 pg (26.0-34.0); MEAN CORPUSCULAR VOLUME 96 fL (80-100); MONOCYTES # (AUTO) 0.5 K/uL (0.1-1.0); MONOCYTES % (AUTO) 9.7 % (2.0-9.0); NEUTROPHILS # (AUTO) 3.4 K/uL (1.8-7.7); NEUTROPHILS % (AUTO) 70.5 % (40.0-70.0); PLATELET COUNT (AUTO) 124 K/uL (150-450); RED BLOOD CELL COUNT(AUTO) 4.74 MIL/uL (4.50-5.90); RED CELL DISTRIBUTION WIDTH 12.9 % (11.5-14.5)
[2017-08-28 23:38] LABS: AMPHET/METH SCREEN,URINE NEGATIVE (NEGATIVE); BARBITURATE SCREEN, URINE NEGATIVE (NEGATIVE); BENZODIAZEPINES SCREEN,URINE NEGATIVE (NEGATIVE); CANNABINOID SCREEN,URINE NEGATIVE (NEGATIVE); COCAINE SCREEN,URINE NEGATIVE (NEGATIVE); METHADONE SCREEN, URINE NEGATIVE (NEGATIVE); OPIATE SCREEN,URINE NEGATIVE (NEGATIVE)
[2017-08-28 23:42] LABS: PHENCYCLIDINE SCREEN,URINE NEGATIVE (NEGATIVE)
[2017-08-28 23:51] LABS: ANION GAP 6 mmol/L (8-16); CALCIUM, TOTAL 9.4 mg/dL (8.8-10.5); CARBON DIOXIDE 28 mmol/L (22-29); CHLORIDE 101 mmol/L (98-107); CREATININE 1.13 mg/dL (0.60-1.30); GLOMERULAR FILTR. RATE CALC > 60 mL/min (>60); GLUCOSE,RANDOM 129 mg/dL (70-110); POTASSIUM 3.5 mmol/L (3.5-5.1); SODIUM SERUM 135 mmol/L (136-145); UREA NITROGEN, BLOOD 18 mg/dL (7-18)
[2017-08-28 23:53] LABS: SALICYLATE < 2.8 mg/dL (2.8-20.0)
[2017-08-28 23:58] LABS: ALANINE AMINOTRANSFERASE 460 U/L (12-78); ALKALINE PHOSPHATASE 103 U/L (46-116); ASPARTATE AMINOTRANSFERASE 209 U/L (15-37); BILIRUBIN,TOTAL 0.8 mg/dL (0.1-1.0); TOTAL PROTEIN, SERUM 8.2 g/dL (6.4-8.2)
[2017-08-29 00:01] LABS: ACETAMINOPHEN < 2 mcg/mL (10-30)
[2017-08-29] MEDS: LORazepam 2 MG TABLET PO PRN ×2 (02:55→14:19)
[2017-08-29 06:37] LABS: BASOPHILS # (AUTO) 0.03 K/uL (0.00-0.20); BASOPHILS % (AUTO) 0.7 % (0.0-2.0); EOSINOPHILS # (AUTO) 0.09 K/uL (0.00-0.70); EOSINOPHILS % (AUTO) 2.25 % (1.0-6.0); HEMATOCRIT 42.9 % (41-53); HEMOGLOBIN 15.3 g/dL (13.5-17.5); LYMPHOCYTES # (AUTO) 1.3 K/uL (1.0-4.8); LYMPHOCYTES % (AUTO) 30.3 % (22.0-44.0); MEAN CORPUSCULAR HEMOGLOBIN 33.7 pg (26.0-34.0); MEAN CORPUSCULAR HGB CONC 35.7 G/dL (31.0-37.0); MEAN CORPUSCULAR VOLUME 94 fL (80-100); MONOCYTES # (AUTO) 0.6 K/uL (0.1-1.0); MONOCYTES % (AUTO) 14.9 % (2.0-9.0); NEUTROPHILS # (AUTO) 2.2 K/uL (1.8-7.7); NEUTROPHILS % (AUTO) 51.9 % (40.0-70.0); PLATELET COUNT (AUTO) 122 K/uL (150-450); RED BLOOD CELL COUNT(AUTO) 4.55 MIL/uL (4.50-5.90)
[2017-08-29 07:15] LABS: ALANINE AMINOTRANSFERASE 414 U/L (12-78); ALBUMIN 3.6 g/dL (3.4-5.0); ALKALINE PHOSPHATASE 95 U/L (46-116); ASPARTATE AMINOTRANSFERASE 181 U/L (15-37); BILIRUBIN,TOTAL 0.9 mg/dL (0.1-1.0); CALCIUM, TOTAL 9.2 mg/dL (8.8-10.5); CARBON DIOXIDE 33 mmol/L (22-29); CHOL/HDL RATIO 3.3 (4.2-7.3); CHOLESTEROL 147 mg/dL (131-200); CREATININE 1.17 mg/dL (0.60-1.30); FREE T4 (FREE THYROXINE) 0.74 ng/dL (0.76-1.46); GLOMERULAR FILTR. RATE CALC > 60 mL/min (>60); GLUCOSE,RANDOM 96 mg/dL (70-110); HDL CHOLESTEROL 45 mg/dL (40-60); LDL CHOL (CALC.) 92 mg/dL (0-130); THYROID STIMULATING HORMONE 2.25 uIU/mL (0.36-3.74); TOTAL PROTEIN, SERUM 7.5 g/dL (6.4-8.2); TRIGLYCERIDES 52 mg/dL (15-150); UREA NITROGEN, BLOOD 20 mg/dL (7-18)
[2017-08-29 07:16] LABS: HEMOGLOBIN A1C 5.3 % (4.5-6.2)
[2017-08-29 09:20] VITALS: BP 97/65
[2017-08-29 10:27] LABS: ANION GAP 5 mmol/L (8-16); CHLORIDE 102 mmol/L (98-107); POTASSIUM 3.9 mmol/L (3.5-5.1); SODIUM SERUM 140 mmol/L (136-145)
[2017-08-29] MEDS ORDERED: QUET100T PO (11:46)
[2017-08-29] MEDS ORDERED: QUET300T2 PO (11:46)
[2017-08-29] MEDS: TAMSULOSIN HCL 0.4 MG CAPSULE PO SCH (14:19)
[2017-08-29] MEDS ORDERED: PARoxetine HCL 20 MG TABLET PO SCH (14:45)
[2017-08-29 16:20] VITALS: BP 106/60
[2017-08-29] MEDS ORDERED: QUEtiapine FUMARATE 100 MG TABLET PO SCH (17:00)
[2017-08-29] MEDS: OMEPRAZOLE 20 MG CAPSULE PO SCH (17:11)
[2017-08-29] MEDS: QUEtiapine FUMARATE 100 MG TABLET PO SCH (17:11)
[2017-08-29] MEDS: QUEtiapine FUMARATE 300 MG TABLET PO SCH (20:22)
[2017-08-29] MEDS ORDERED: QUEtiapine FUMARATE 200 MG TABLET PO SCH (21:00)
[2017-08-30 06:22] VITALS: BP 100/60
[2017-08-30 08:00] VITALS: BP 101/72
[2017-08-30] MEDS: QUEtiapine FUMARATE 100 MG TABLET PO SCH (08:44)
[2017-08-30] MEDS: DOCUSATE SODIUM 100 MG CAPSULE PO SCH (08:44)
[2017-08-30] MEDS: OMEPRAZOLE 20 MG CAPSULE PO SCH (08:44)
[2017-08-30] MEDS: TAMSULOSIN HCL 0.4 MG CAPSULE PO SCH (08:44)
[2017-08-30] MEDS: PARoxetine HCL 20 MG TABLET PO SCH (08:45)
[2017-08-30] MEDS ORDERED: PARoxetine HCL 20 MG TABLET PO SCH (09:00)
[2017-08-30] MEDS: FLUTICASONE FUROATE 200 MCG/INH INHALER [14] IH SCH ×2 (10:48→14:29)
[2017-08-30] MEDS: LORazepam 2 MG TABLET PO PRN ×2 (13:29→22:29)
[2017-08-30 16:00] VITALS: BP 108/60
[2017-08-30] MEDS: QUEtiapine FUMARATE 300 MG TABLET PO SCH (20:31)
[2017-08-30 22:25] VITALS: BP 110/75
[2017-08-31 00:30] VITALS: BP 109/62
[2017-08-31] MEDS: ZOLPIDEM TARTRATE 10 MG TABLET PO PRN ×2 (00:43→21:07)
[2017-08-31] MEDS: TAMSULOSIN HCL 0.4 MG CAPSULE PO SCH (09:14)
[2017-08-31] MEDS: DOCUSATE SODIUM 100 MG CAPSULE PO SCH (09:14)
[2017-08-31] MEDS: QUEtiapine FUMARATE 100 MG TABLET PO SCH (09:14)
[2017-08-31] MEDS: OMEPRAZOLE 20 MG CAPSULE PO SCH (09:14)
[2017-08-31] MEDS: PARoxetine HCL 20 MG TABLET PO SCH (09:15)
[2017-08-31] MEDS: FLUTICASONE FUROATE 200 MCG/INH INHALER [14] IH SCH (09:15)
[2017-08-31 11:13] VITALS: BP 100/63
[2017-08-31 16:21] VITALS: BP 100/60
[2017-08-31] MEDS: QUEtiapine FUMARATE 300 MG TABLET PO SCH (20:18)
[2017-08-31] MEDS: LORazepam 2 MG TABLET PO PRN (22:52)
[2017-08-31] MEDS: HALOPERIDOL 5 MG TABLET PO PRN (23:35)
[2017-09-01 00:25] VITALS: BP 109/68
[2017-09-01] MEDS: TAMSULOSIN HCL 0.4 MG CAPSULE PO SCH (08:17)
[2017-09-01] MEDS: FLUTICASONE FUROATE 200 MCG/INH INHALER [14] IH SCH (08:17)
[2017-09-01] MEDS: PARoxetine HCL 20 MG TABLET PO SCH (08:18)
[2017-09-01] MEDS: DOCUSATE SODIUM 100 MG CAPSULE PO SCH (08:18)
[2017-09-01] MEDS: OMEPRAZOLE 20 MG CAPSULE PO SCH (08:18)
[2017-09-01] MEDS: QUEtiapine FUMARATE 100 MG TABLET PO SCH (08:18)
[2017-09-01 08:26] VITALS: BP 69/37
[2017-09-01] MEDS: LORazepam 2 MG TABLET PO PRN ×2 (15:50→23:54)
[2017-09-01 16:09] VITALS: BP 112/79
[2017-09-01] MEDS: QUEtiapine FUMARATE 300 MG TABLET PO SCH (20:14)
[2017-09-01] MEDS: ZOLPIDEM TARTRATE 10 MG TABLET PO PRN (20:15)
[2017-09-02 00:30] VITALS: BP 108/67
[2017-09-02 08:00] VITALS: BP 90/56
[2017-09-02] MEDS: PARoxetine HCL 20 MG TABLET PO SCH (09:06)
[2017-09-02] MEDS: TAMSULOSIN HCL 0.4 MG CAPSULE PO SCH (09:07)
[2017-09-02] MEDS: OMEPRAZOLE 20 MG CAPSULE PO SCH (09:07)
[2017-09-02] MEDS: QUEtiapine FUMARATE 100 MG TABLET PO SCH (09:07)
[2017-09-02] MEDS: DOCUSATE SODIUM 100 MG CAPSULE PO SCH (09:07)
[2017-09-02] MEDS: FLUTICASONE FUROATE 200 MCG/INH INHALER [14] IH SCH (09:07)
[2017-09-02 16:27] VITALS: BP 110/66
[2017-09-02] MEDS: LORazepam 2 MG TABLET PO PRN (16:27)
[2017-09-02] MEDS: HALOPERIDOL 5 MG TABLET PO PRN (19:45)
[2017-09-02] MEDS: QUEtiapine FUMARATE 300 MG TABLET PO SCH (20:38)
[2017-09-03 02:53] VITALS: BP 103/71
[2017-09-03] MEDS: HALOPERIDOL 5 MG TABLET PO PRN (02:55)
[2017-09-03 08:31] VITALS: BP 107/87
[2017-09-03] MEDS: OMEPRAZOLE 20 MG CAPSULE PO SCH (08:49)
[2017-09-03] MEDS: QUEtiapine FUMARATE 100 MG TABLET PO SCH (08:49)
[2017-09-03] MEDS: TAMSULOSIN HCL 0.4 MG CAPSULE PO SCH (08:49)
[2017-09-03] MEDS: PARoxetine HCL 20 MG TABLET PO SCH (08:49)
[2017-09-03] MEDS: DOCUSATE SODIUM 100 MG CAPSULE PO SCH (08:49)
[2017-09-03] MEDS: FLUTICASONE FUROATE 200 MCG/INH INHALER [14] IH SCH (08:49)
[2017-09-03 16:31] VITALS: BP 111/64
[2017-09-03] MEDS: LORazepam 2 MG TABLET PO PRN (16:43)
[2017-09-03] MEDS: QUEtiapine FUMARATE 300 MG TABLET PO SCH (20:21)
[2017-09-03] MEDS: ZOLPIDEM TARTRATE 10 MG TABLET PO PRN (21:26)
[2017-09-04 05:53] VITALS: BP 100/56
[2017-09-04 08:14] VITALS: BP 98/59
[2017-09-04] MEDS: QUEtiapine FUMARATE 100 MG TABLET PO SCH (08:18)
[2017-09-04] MEDS: FLUTICASONE FUROATE 200 MCG/INH INHALER [14] IH SCH (08:18)
[2017-09-04] MEDS: TAMSULOSIN HCL 0.4 MG CAPSULE PO SCH (08:18)
[2017-09-04] MEDS: OMEPRAZOLE 20 MG CAPSULE PO SCH (08:18)
[2017-09-04] MEDS: PARoxetine HCL 20 MG TABLET PO SCH (08:18)
[2017-09-04] MEDS: DOCUSATE SODIUM 100 MG CAPSULE PO SCH (08:18)
[2017-09-04 16:05] VITALS: BP 100/60
[2017-09-04] MEDS: QUEtiapine FUMARATE 300 MG TABLET PO SCH (20:18)
[2017-09-04] MEDS: ZOLPIDEM TARTRATE 10 MG TABLET PO PRN (21:37)
[2017-09-05] MEDS: LORazepam 2 MG TABLET PO PRN (00:06)
[2017-09-05 00:51] VITALS: BP 126/82
[2017-09-05] MEDS: TAMSULOSIN HCL 0.4 MG CAPSULE PO SCH (08:15)
[2017-09-05] MEDS: PARoxetine HCL 20 MG TABLET PO SCH (08:15)
[2017-09-05] MEDS: QUEtiapine FUMARATE 100 MG TABLET PO SCH (08:15)
[2017-09-05] MEDS: DOCUSATE SODIUM 100 MG CAPSULE PO SCH (08:15)
[2017-09-05] MEDS: OMEPRAZOLE 20 MG CAPSULE PO SCH (08:15)
[2017-09-05] MEDS: FLUTICASONE FUROATE 200 MCG/INH INHALER [14] IH SCH (08:15)
[2017-09-05 08:49] VITALS: BP 99/60
[2017-09-05 16:09] VITALS: BP 105/62
[2017-09-05] MEDS: QUEtiapine FUMARATE 300 MG TABLET PO SCH (20:03)
[2017-09-06] MEDS: LORazepam 2 MG TABLET PO PRN ×2 (00:07→21:47)
[2017-09-06 07:02] VITALS: BP 100/75
[2017-09-06 08:27] VITALS: BP 94/58
[2017-09-06] MEDS: FLUTICASONE FUROATE 200 MCG/INH INHALER [14] IH SCH (09:06)
[2017-09-06] MEDS: PARoxetine HCL 20 MG TABLET PO SCH (09:06)
[2017-09-06] MEDS: TAMSULOSIN HCL 0.4 MG CAPSULE PO SCH (09:06)
[2017-09-06] MEDS: DOCUSATE SODIUM 100 MG CAPSULE PO SCH (09:06)
[2017-09-06] MEDS: OMEPRAZOLE 20 MG CAPSULE PO SCH (09:06)
[2017-09-06] MEDS: QUEtiapine FUMARATE 100 MG TABLET PO SCH (09:06)
[2017-09-06 16:16] VITALS: BP 124/65
[2017-09-06] MEDS: QUEtiapine FUMARATE 300 MG TABLET PO SCH (20:18)
[2017-09-07 01:54] VITALS: BP 101/69
[2017-09-07] MEDS: OMEPRAZOLE 20 MG CAPSULE PO SCH (09:39)
[2017-09-07] MEDS: PARoxetine HCL 20 MG TABLET PO SCH (09:39)
[2017-09-07] MEDS: DOCUSATE SODIUM 100 MG CAPSULE PO SCH (09:39)
[2017-09-07] MEDS: FLUTICASONE FUROATE 200 MCG/INH INHALER [14] IH SCH (09:40)
[2017-09-07] MEDS: QUEtiapine FUMARATE 100 MG TABLET PO SCH (09:45)
[2017-09-07] MEDS: TAMSULOSIN HCL 0.4 MG CAPSULE PO SCH (10:04)
[2017-09-07 18:33] VITALS: BP 106/62
[2017-09-07] MEDS: QUEtiapine FUMARATE 300 MG TABLET PO SCH (20:07)
[2017-09-08 01:10] VITALS: BP 102/63
[2017-09-08] MEDS: QUEtiapine FUMARATE 100 MG TABLET PO SCH (08:15)
[2017-09-08 08:16] VITALS: BP 91/63
[2017-09-08] MEDS: DOCUSATE SODIUM 100 MG CAPSULE PO SCH (08:16)
[2017-09-08] MEDS: OMEPRAZOLE 20 MG CAPSULE PO SCH (08:16)
[2017-09-08] MEDS: FLUTICASONE FUROATE 200 MCG/INH INHALER [14] IH SCH (08:16)
[2017-09-08] MEDS: PARoxetine HCL 20 MG TABLET PO SCH (08:16)
[2017-09-08] MEDS: TAMSULOSIN HCL 0.4 MG CAPSULE PO SCH (08:16)
[2017-09-08] MEDS: LORazepam 2 MG TABLET PO PRN ×2 (08:27→13:09)
[2017-09-08] MEDS: QUEtiapine FUMARATE 300 MG TABLET PO SCH (20:11)
[2017-09-08 20:30] VITALS: BP 100/62
[2017-09-09 01:16] VITALS: BP 105/62
[2017-09-09] MEDS: ZOLPIDEM TARTRATE 10 MG TABLET PO PRN (01:20)
[2017-09-09] MEDS ORDERED: DSS100 PO (05:04)
[2017-09-09 08:40] VITALS: BP 98/56
[2017-09-09] MEDS: FLUTICASONE FUROATE 200 MCG/INH INHALER [14] IH SCH (09:04)
[2017-09-09] MEDS: OMEPRAZOLE 20 MG CAPSULE PO SCH (09:05)
[2017-09-09] MEDS: QUEtiapine FUMARATE 100 MG TABLET PO SCH (09:05)
[2017-09-09] MEDS: PARoxetine HCL 20 MG TABLET PO SCH (09:05)
[2017-09-09] MEDS: TAMSULOSIN HCL 0.4 MG CAPSULE PO SCH (09:05)
[2017-09-09] MEDS: DOCUSATE SODIUM 100 MG CAPSULE PO SCH (09:05)
== END 2017-09-09 13:20 | disposition home or self-care (01) | DRG 750 ==
LOC: EMS 22:28 → AHU 08-29 08:33 → B2S 08-29 14:56
PROVIDERS: ADMIT Psychiatry & Neurology Psychiatry; ATTEND Psychiatry & Neurology Child & Adolescent Psychiatry
DX: F25.1 Schizoaffective disorder, depressive type (principal); D69.59 Other secondary thrombocytopenia; R45.851 Suicidal ideations; E03.9 Hypothyroidism, unspecified; F12.10 Cannabis abuse, uncomplicated; J44.9 Chronic obstructive pulmonary disease, unspecified; K21.9 Gastro-esophageal reflux disease without esophagitis; N40.0 Benign prostatic hyperplasia without lower urinary tract symptoms; B19.20 Unspecified viral hepatitis C without hepatic coma; F41.9 Anxiety disorder, unspecified; F15.20 Other stimulant dependence, uncomplicated; G47.00 Insomnia, unspecified; F10.10 Alcohol abuse, uncomplicated; Z79.899 Other long term (current) drug therapy; Z91.5 Personal history of self-harm
CPT/HCPCS: 83036; 84439; 84443; 87081; 99285; G0480; G0481

== ENCOUNTER 2017-09-10 21:12 | Inpatient (IN) | payer MEDICAID ==
[~2017-09-10] VITALS: Ht 165.1 cm; Wt 54.4 kg
[~2017-09-10 21:12] MED LIST changes: -DSS100 PO; -OMEP20 PO; +QUET100T PO; -QUET200T PO; -QUET25TA PO; +QUET300T2 PO; -VITAD1000 PO
[2017-09-10 21:49] LABS: BASOPHILS % (AUTO) 0.4 % (0.0-2.0); EOSINOPHILS % (AUTO) 0.5 % (1.0-6.0); HEMATOCRIT 44.9 % (41-53); HEMOGLOBIN 15.6 g/dL (13.5-17.5); LYMPHOCYTES # (AUTO) 0.6 K/uL (1.0-4.8); LYMPHOCYTES % (AUTO) 12.2 % (22.0-44.0); MEAN CORPUSCULAR HEMOGLOBIN 33.8 pg (26.0-34.0); MEAN CORPUSCULAR HGB CONC 34.8 G/dL (31.0-37.0); MEAN CORPUSCULAR VOLUME 97 fL (80-100); MONOCYTES # (AUTO) 0.3 K/uL (0.1-1.0); MONOCYTES % (AUTO) 6.5 % (2.0-9.0); NEUTROPHILS # (AUTO) 4.1 K/uL (1.8-7.7); NEUTROPHILS % (AUTO) 80.4 % (40.0-70.0); PLATELET COUNT (AUTO) 112 K/uL (150-450); RED BLOOD CELL COUNT(AUTO) 4.63 MIL/uL (4.50-5.90)
[2017-09-10 22:11] LABS: ANION GAP 10 mmol/L (8-16); CALCIUM, TOTAL 9.4 mg/dL (8.8-10.5); CARBON DIOXIDE 26 mmol/L (22-29); CHLORIDE 100 mmol/L (98-107); GLOMERULAR FILTR. RATE CALC 58 mL/min (>60); GLUCOSE,RANDOM 113 mg/dL (70-110); POTASSIUM 3.5 mmol/L (3.5-5.1); SODIUM SERUM 136 mmol/L (136-145); UREA NITROGEN, BLOOD 22 mg/dL (7-18)
[2017-09-10 22:17] LABS: ALANINE AMINOTRANSFERASE 442 U/L (12-78); ALBUMIN 4.1 g/dL (3.4-5.0); ALKALINE PHOSPHATASE 94 U/L (46-116); ASPARTATE AMINOTRANSFERASE 197 U/L (15-37); BILIRUBIN,TOTAL 0.9 mg/dL (0.1-1.0)
[2017-09-10 22:25] LABS: SALICYLATE < 2.8 mg/dL (2.8-20.0)
[2017-09-10 22:35] LABS: ACETAMINOPHEN < 2 mcg/mL (10-30)
[2017-09-11 00:40] LABS: AMPHET/METH SCREEN,URINE NEGATIVE (NEGATIVE); BARBITURATE SCREEN, URINE NEGATIVE (NEGATIVE); BENZODIAZEPINES SCREEN,URINE NEGATIVE (NEGATIVE); CANNABINOID SCREEN,URINE NEGATIVE (NEGATIVE); COCAINE SCREEN,URINE NEGATIVE (NEGATIVE); METHADONE SCREEN, URINE NEGATIVE (NEGATIVE); OPIATE SCREEN,URINE NEGATIVE (NEGATIVE)
[2017-09-11 00:44] LABS: PHENCYCLIDINE SCREEN,URINE NEGATIVE (NEGATIVE)
[2017-09-11] MEDS ORDERED: LORazepam 2 MG TABLET PO PRN (01:00)
[2017-09-11 01:14] LABS: CHOL/HDL RATIO 3.1 (4.2-7.3); CHOLESTEROL 141 mg/dL (131-200); HDL CHOLESTEROL 45 mg/dL (40-60); LDL CHOL (CALC.) 86 mg/dL (0-130); TRIGLYCERIDES 52 mg/dL (15-150)
[2017-09-11 01:19] LABS: APPEARANCE,URINE CLEAR (CLEAR); BILIRUBIN,URINE NEGATIVE (NEGATIVE); GLUCOSE, URINE (UA) NEGATIVE (NEGATIVE); KETONES,URINE NEGATIVE (NEGATIVE); LEUKOCYTE ESTERASE ,URINE NEGATIVE (NEGATIVE); NITRATE,URINE NEGATIVE (NEGATIVE); OCCULT BLOOD,URINE NEGATIVE (NEGATIVE); PROTEIN,URINE NEGATIVE (NEGATIVE)
[2017-09-11] MEDS ORDERED: INFLUENZA VIRUS VACCINE QVS 2017-18 (3YR+)/PF 60 MCG/0.5 ML SYRINGE IM ONE (10:30)
[2017-09-11 16:16] VITALS: BP 104/64
[2017-09-12] MEDS ORDERED: PNEUMOCOCCAL VACCINE POLYVALENT 0.5 ML VIAL [PPSV23] IM ONE (05:00)
[2017-09-12 07:02] VITALS: BP 102/60
[2017-09-12 08:16] VITALS: BP 108/68
[2017-09-12] MEDS ORDERED: LOPERAMIDE HCL 2 MG CAPSULE PO PRN (10:00)
[2017-09-12] MEDS ORDERED: MAGNESIUM HYDROXIDE SUSPENSION 30 ML UDCUP PO PRN (10:00)
[2017-09-12] MEDS ORDERED: PETROLATUM,WHITE 71 GM JELLY TP PRN (10:00)
[2017-09-12] MEDS ORDERED: BENZOCAINE/MENTHOL LOZENGE MM PRN (10:00)
[2017-09-12] MEDS ORDERED: ONDANSETRON HCL 4 MG TABLET PO PRN (10:00)
[2017-09-12] MEDS ORDERED: BACITRACIN 28.4 GM OINTMENT TP PRN (10:00)
[2017-09-12] MEDS ORDERED: ACETAMINOPHEN 325 MG TABLET PO PRN (10:00)
[2017-09-12] MEDS ORDERED: CloNIDine HCL 0.1 MG TABLET PO PRN (10:00)
[2017-09-12] MEDS ORDERED: IBUPROFEN 600 MG TABLET PO PRN (10:00)
[2017-09-12] MEDS ORDERED: MAG HYDROX/AL HYDROX/SIMETH ES 30 ML SUSPENSION UDCUP PO PRN (10:00)
[2017-09-12] MEDS ORDERED: ALBUTEROL SULFATE HFA 90 MCG/PUFF 8 GM INHALER IH PRN (10:00)
[2017-09-12] MEDS: TAMSULOSIN HCL 0.4 MG CAPSULE PO SCH (10:34)
[2017-09-12] MEDS: QUEtiapine FUMARATE 100 MG TABLET PO SCH (15:01)
[2017-09-12] MEDS: PARoxetine HCL 20 MG TABLET PO SCH (15:01)
[2017-09-12 16:00] VITALS: BP 101/60
[2017-09-12] MEDS: HALOPERIDOL 5 MG TABLET PO PRN ×2 (17:36→21:54)
[2017-09-12] MEDS: QUEtiapine FUMARATE 300 MG TABLET PO SCH (20:15)
[2017-09-12] MEDS ORDERED: QUEtiapine FUMARATE 300 MG TABLET PO SCH (21:00)
[2017-09-13 00:57] VITALS: BP 107/69
[2017-09-13] MEDS: ZOLPIDEM TARTRATE 10 MG TABLET PO PRN ×2 (01:59→21:30)
[2017-09-13] MEDS: HALOPERIDOL 5 MG TABLET PO PRN ×2 (01:59→18:53)
[2017-09-13] MEDS ORDERED: PARoxetine HCL 20 MG TABLET PO SCH (09:00)
[2017-09-13] MEDS ORDERED: QUEtiapine FUMARATE 100 MG TABLET PO SCH (09:00)
[2017-09-13 09:30] VITALS: BP 81/45
[2017-09-13] MEDS: PARoxetine HCL 20 MG TABLET PO SCH (09:54)
[2017-09-13] MEDS: OMEPRAZOLE 20 MG CAPSULE PO SCH (09:54)
[2017-09-13] MEDS: TAMSULOSIN HCL 0.4 MG CAPSULE PO SCH (09:54)
[2017-09-13] MEDS: DOCUSATE SODIUM 100 MG CAPSULE PO SCH (09:55)
[2017-09-13] MEDS: QUEtiapine FUMARATE 100 MG TABLET PO SCH (09:58)
[2017-09-13] MEDS: FLUTICASONE/VILANTEROL 200-25 MCG/INH INHALER [14] IH SCH (10:01)
[2017-09-13 16:00] VITALS: BP 104/66
[2017-09-13] MEDS: HydrOXYzine PAMOATE 50 MG CAPSULE PO PRN (16:29)
[2017-09-13 19:50] VITALS: BP 108/68
[2017-09-13] MEDS: QUEtiapine FUMARATE 300 MG TABLET PO SCH (20:01)
[2017-09-14] VITALS: BP 100/62
[2017-09-14 08:30] VITALS: BP 95/60
[2017-09-14] MEDS: TAMSULOSIN HCL 0.4 MG CAPSULE PO SCH (09:16)
[2017-09-14] MEDS: QUEtiapine FUMARATE 100 MG TABLET PO SCH (09:17)
[2017-09-14] MEDS: DOCUSATE SODIUM 100 MG CAPSULE PO SCH (09:17)
[2017-09-14] MEDS: OMEPRAZOLE 20 MG CAPSULE PO SCH (09:17)
[2017-09-14] MEDS: FLUTICASONE/VILANTEROL 200-25 MCG/INH INHALER [14] IH SCH (09:17)
[2017-09-14] MEDS: PARoxetine HCL 20 MG TABLET PO SCH (09:17)
[2017-09-14 16:00] VITALS: BP 106/62
[2017-09-14] MEDS: HydrOXYzine PAMOATE 50 MG CAPSULE PO PRN (17:37)
[2017-09-14] MEDS: ZOLPIDEM TARTRATE 10 MG TABLET PO PRN (20:15)
[2017-09-14] MEDS: QUEtiapine FUMARATE 300 MG TABLET PO SCH (20:15)
[2017-09-15 00:10] VITALS: BP 101/61
[2017-09-15] MEDS: TAMSULOSIN HCL 0.4 MG CAPSULE PO SCH (08:43)
[2017-09-15] MEDS: DOCUSATE SODIUM 100 MG CAPSULE PO SCH (08:43)
[2017-09-15] MEDS: OMEPRAZOLE 20 MG CAPSULE PO SCH (08:43)
[2017-09-15] MEDS: QUEtiapine FUMARATE 100 MG TABLET PO SCH (08:43)
[2017-09-15] MEDS: PARoxetine HCL 20 MG TABLET PO SCH (08:43)
[2017-09-15] MEDS: FLUTICASONE/VILANTEROL 200-25 MCG/INH INHALER [14] IH SCH (08:44)
[2017-09-15 08:51] VITALS: BP 98/61
[2017-09-15] MEDS: HALOPERIDOL 5 MG TABLET PO PRN (11:11)
[2017-09-15] MEDS: BENZTROPINE MESYLATE 1 MG TABLET PO SCH (14:15)
[2017-09-15 16:28] VITALS: BP 117/64
[2017-09-15] MEDS: HydrOXYzine PAMOATE 50 MG CAPSULE PO PRN (16:32)
[2017-09-15] MEDS ORDERED: LORazepam 2 MG/ML VIAL IM ONE (17:15)
[2017-09-15] MEDS ORDERED: DiphenhydrAMINE HCL 50 MG/ML VIAL IM ONE (17:15)
[2017-09-15] MEDS ORDERED: HALOPERIDOL LACTATE 5 MG/ML VIAL IM ONE (17:15)
[2017-09-15] MEDS: QUEtiapine FUMARATE 300 MG TABLET PO SCH (20:09)
[2017-09-16 05:25] VITALS: BP 105/64
[2017-09-16 09:03] VITALS: BP 100/68
[2017-09-16] MEDS: BENZTROPINE MESYLATE 1 MG TABLET PO SCH (09:08)
[2017-09-16] MEDS: TAMSULOSIN HCL 0.4 MG CAPSULE PO SCH (09:08)
[2017-09-16] MEDS: OMEPRAZOLE 20 MG CAPSULE PO SCH (09:09)
[2017-09-16] MEDS: QUEtiapine FUMARATE 100 MG TABLET PO SCH (09:09)
[2017-09-16] MEDS: DOCUSATE SODIUM 100 MG CAPSULE PO SCH (09:09)
[2017-09-16] MEDS: PARoxetine HCL 20 MG TABLET PO SCH (09:09)
[2017-09-16] MEDS: FLUTICASONE/VILANTEROL 200-25 MCG/INH INHALER [14] IH SCH (09:12)
[2017-09-16 18:13] VITALS: BP 91/67
[2017-09-16] MEDS: QUEtiapine FUMARATE 300 MG TABLET PO SCH (20:28)
[2017-09-16] MEDS: ZOLPIDEM TARTRATE 10 MG TABLET PO PRN (20:28)
[2017-09-17 05:37] VITALS: BP 105/62
[2017-09-17 08:41] VITALS: BP 98/63
[2017-09-17] MEDS: PARoxetine HCL 20 MG TABLET PO SCH (08:46)
[2017-09-17] MEDS: QUEtiapine FUMARATE 100 MG TABLET PO SCH (08:46)
[2017-09-17] MEDS: DOCUSATE SODIUM 100 MG CAPSULE PO SCH (08:46)
[2017-09-17] MEDS: BENZTROPINE MESYLATE 1 MG TABLET PO SCH (08:46)
[2017-09-17] MEDS: OMEPRAZOLE 20 MG CAPSULE PO SCH (08:46)
[2017-09-17] MEDS: TAMSULOSIN HCL 0.4 MG CAPSULE PO SCH (08:46)
[2017-09-17] MEDS: FLUTICASONE/VILANTEROL 200-25 MCG/INH INHALER [14] IH SCH (09:36)
[2017-09-17 17:38] VITALS: BP 104/60
[2017-09-17] MEDS: QUEtiapine FUMARATE 300 MG TABLET PO SCH (20:12)
[2017-09-17] MEDS: ZOLPIDEM TARTRATE 10 MG TABLET PO PRN (20:20)
[2017-09-18 05:38] VITALS: BP 112/68
[2017-09-18 08:30] VITALS: BP 106/68
[2017-09-18] MEDS: QUEtiapine FUMARATE 100 MG TABLET PO SCH (09:36)
[2017-09-18] MEDS: DOCUSATE SODIUM 100 MG CAPSULE PO SCH (09:36)
[2017-09-18] MEDS: OMEPRAZOLE 20 MG CAPSULE PO SCH (09:36)
[2017-09-18] MEDS: PARoxetine HCL 20 MG TABLET PO SCH (09:36)
[2017-09-18] MEDS: BENZTROPINE MESYLATE 1 MG TABLET PO SCH (09:36)
[2017-09-18] MEDS: TAMSULOSIN HCL 0.4 MG CAPSULE PO SCH (09:36)
[2017-09-18] MEDS: FLUTICASONE/VILANTEROL 200-25 MCG/INH INHALER [14] IH SCH (09:37)
[2017-09-18 19:24] VITALS: BP 98/57
[2017-09-18] MEDS: QUEtiapine FUMARATE 300 MG TABLET PO SCH (20:21)
[2017-09-18] MEDS: ZOLPIDEM TARTRATE 10 MG TABLET PO PRN (20:21)
[2017-09-19 01:19] VITALS: BP 105/60
[2017-09-19] MEDS: OMEPRAZOLE 20 MG CAPSULE PO SCH (08:49)
[2017-09-19] MEDS: BENZTROPINE MESYLATE 1 MG TABLET PO SCH (08:49)
[2017-09-19] MEDS: FLUTICASONE/VILANTEROL 200-25 MCG/INH INHALER [14] IH SCH (08:49)
[2017-09-19] MEDS: PARoxetine HCL 20 MG TABLET PO SCH (08:49)
[2017-09-19] MEDS: DOCUSATE SODIUM 100 MG CAPSULE PO SCH (08:49)
[2017-09-19] MEDS: QUEtiapine FUMARATE 100 MG TABLET PO SCH (08:49)
[2017-09-19] MEDS: TAMSULOSIN HCL 0.4 MG CAPSULE PO SCH (08:50)
[2017-09-19 10:58] VITALS: BP 108/60
[2017-09-19 16:28] VITALS: BP 112/65
[2017-09-19] MEDS: QUEtiapine FUMARATE 300 MG TABLET PO SCH (20:44)
[2017-09-19] MEDS: ZOLPIDEM TARTRATE 10 MG TABLET PO PRN (20:44)
[2017-09-20 00:32] VITALS: BP 99/59
[2017-09-20] MEDS: TAMSULOSIN HCL 0.4 MG CAPSULE PO SCH (09:20)
[2017-09-20] MEDS: BENZTROPINE MESYLATE 1 MG TABLET PO SCH (10:01)
[2017-09-20] MEDS: FLUTICASONE/VILANTEROL 200-25 MCG/INH INHALER [14] IH SCH (10:01)
[2017-09-20] MEDS: OMEPRAZOLE 20 MG CAPSULE PO SCH (10:02)
[2017-09-20] MEDS: QUEtiapine FUMARATE 100 MG TABLET PO SCH (10:02)
[2017-09-20] MEDS: DOCUSATE SODIUM 100 MG CAPSULE PO SCH (10:02)
[2017-09-20] MEDS: PARoxetine HCL 20 MG TABLET PO SCH (10:02)
[2017-09-20] MEDS ORDERED: OMEP20 PO (12:32)
[2017-09-20] MEDS ORDERED: DSS100 PO (12:32)
[2017-09-20] MEDS ORDERED: BENZ1TAB10 PO (12:32)
== END 2017-09-20 13:55 | disposition home or self-care (01) | DRG 750 ==
LOC: EMS 21:14 → AHU 09-11 07:59 → B2S 09-11 10:14
PROVIDERS: ADMIT Psychiatry & Neurology Psychiatry; ATTEND Psychiatry & Neurology Psychiatry
DX: F25.1 Schizoaffective disorder, depressive type (principal); D69.6 Thrombocytopenia, unspecified; E44.0 Moderate protein-calorie malnutrition; R45.851 Suicidal ideations; Z59.0 Homelessness; B18.2 Chronic viral hepatitis C; E03.9 Hypothyroidism, unspecified; F10.10 Alcohol abuse, uncomplicated; F12.90 Cannabis use, unspecified, uncomplicated; F15.10 Other stimulant abuse, uncomplicated; F41.9 Anxiety disorder, unspecified; G47.00 Insomnia, unspecified; J44.9 Chronic obstructive pulmonary disease, unspecified; K21.9 Gastro-esophageal reflux disease without esophagitis; N40.0 Benign prostatic hyperplasia without lower urinary tract symptoms; R79.89 Other specified abnormal findings of blood chemistry; Z68.20 Body mass index [BMI] 20.0-20.9, adult; Z79.899 Other long term (current) drug therapy
CPT/HCPCS: 85049; 87081; 90471; 93005; 99285; G0480; G0481; J1200; J1630; J2060

== ENCOUNTER 2017-09-26 18:37 | Inpatient (IN) | payer MEDICAID ==
[~2017-09-26] VITALS: Ht 165.1 cm; Wt 56.7 kg
[~2017-09-26 18:37] MED LIST changes: +BENZ1TAB10 PO; +DSS100 PO; +OMEP20 PO
[2017-09-26] MEDS ORDERED: DiphenhydrAMINE HCL 25 MG CAPSULE PO ONE (21:00)
[2017-09-26] MEDS ORDERED: HALOPERIDOL 5 MG TABLET PO ONE (21:00)
[2017-09-26] MEDS ORDERED: LORazepam 2 MG TABLET PO ONE (21:00)
[2017-09-26 21:08] LABS: BASOPHILS % (AUTO) 0.9 % (0.0-2.0); EOSINOPHILS % (AUTO) 1.2 % (1.0-6.0); HEMOGLOBIN 14.5 g/dL (13.5-17.5); LYMPHOCYTES # (AUTO) 1.3 K/uL (1.0-4.8); LYMPHOCYTES % (AUTO) 23.2 % (22.0-44.0); MEAN CORPUSCULAR HEMOGLOBIN 33.4 pg (26.0-34.0); MEAN CORPUSCULAR HGB CONC 35.3 G/dL (31.0-37.0); MEAN CORPUSCULAR VOLUME 95 fL (80-100); MONOCYTES # (AUTO) 0.5 K/uL (0.1-1.0); MONOCYTES % (AUTO) 7.9 % (2.0-9.0); NEUTROPHILS # (AUTO) 3.8 K/uL (1.8-7.7); NEUTROPHILS % (AUTO) 66.8 % (40.0-70.0); RED BLOOD CELL COUNT(AUTO) 4.34 MIL/uL (4.50-5.90)
[2017-09-26 21:12] LABS: ANION GAP 7 mmol/L (8-16); CALCIUM, TOTAL 8.6 mg/dL (8.8-10.5); CARBON DIOXIDE 30 mmol/L (22-29); CHLORIDE 101 mmol/L (98-107); CREATININE 0.97 mg/dL (0.60-1.30); GLOMERULAR FILTR. RATE CALC > 60 mL/min (>60); GLUCOSE,RANDOM 123 mg/dL (70-110); POTASSIUM 3.7 mmol/L (3.5-5.1); SODIUM SERUM 138 mmol/L (136-145); UREA NITROGEN, BLOOD 16 mg/dL (7-18)
[2017-09-26 21:17] LABS: PLATELET COUNT (AUTO) 99 K/uL (150-450)
[2017-09-26 21:18] LABS: ALANINE AMINOTRANSFERASE 325 U/L (12-78); ALBUMIN 3.7 g/dL (3.4-5.0); ALKALINE PHOSPHATASE 120 U/L (46-116); ASPARTATE AMINOTRANSFERASE 158 U/L (15-37); BILIRUBIN,TOTAL 0.5 mg/dL (0.1-1.0); TOTAL PROTEIN, SERUM 7.4 g/dL (6.4-8.2)
[2017-09-26 21:24] LABS: AMPHET/METH SCREEN,URINE NEGATIVE (NEGATIVE); BARBITURATE SCREEN, URINE NEGATIVE (NEGATIVE); BENZODIAZEPINES SCREEN,URINE NEGATIVE (NEGATIVE); CANNABINOID SCREEN,URINE NEGATIVE (NEGATIVE); COCAINE SCREEN,URINE NEGATIVE (NEGATIVE); METHADONE SCREEN, URINE NEGATIVE (NEGATIVE); OPIATE SCREEN,URINE NEGATIVE (NEGATIVE)
[2017-09-26] MEDS ORDERED: HALOPERIDOL 5 MG TABLET PO PRN (21:30)
[2017-09-26 21:40] LABS: PHENCYCLIDINE SCREEN,URINE NEGATIVE (NEGATIVE)
[2017-09-26] MEDS ORDERED: INFLUENZA VIRUS VACCINE QVS 2017-18 (3YR+)/PF 60 MCG/0.5 ML SYRINGE IM ONE (22:45)
[2017-09-27 05:12] LABS: CHOL/HDL RATIO 3.4 (4.2-7.3)
[2017-09-27 08:19] VITALS: BP 99/65
[2017-09-27] MEDS ORDERED: CloNIDine HCL 0.1 MG TABLET PO PRN (09:00)
[2017-09-27] MEDS ORDERED: BACITRACIN 28.4 GM OINTMENT TP PRN (09:00)
[2017-09-27] MEDS ORDERED: ALBUTEROL SULFATE HFA 90 MCG/PUFF 8 GM INHALER IH PRN (09:00)
[2017-09-27] MEDS ORDERED: BENZOCAINE/MENTHOL LOZENGE MM PRN (09:00)
[2017-09-27] MEDS ORDERED: PETROLATUM,WHITE 71 GM JELLY TP PRN (09:00)
[2017-09-27] MEDS ORDERED: DOCUSATE SODIUM 100 MG CAPSULE PO SCH (09:00)
[2017-09-27] MEDS ORDERED: MAGNESIUM HYDROXIDE SUSPENSION 30 ML UDCUP PO PRN (09:00)
[2017-09-27] MEDS ORDERED: LOPERAMIDE HCL 2 MG CAPSULE PO PRN (09:00)
[2017-09-27] MEDS ORDERED: MAG HYDROX/AL HYDROX/SIMETH ES 30 ML SUSPENSION UDCUP PO PRN (09:00)
[2017-09-27] MEDS ORDERED: ACETAMINOPHEN 325 MG TABLET PO PRN (09:00)
[2017-09-27] MEDS ORDERED: ONDANSETRON HCL 4 MG TABLET PO PRN (09:00)
[2017-09-27] MEDS ORDERED: IBUPROFEN 600 MG TABLET PO PRN (09:00)
[2017-09-27] MEDS ORDERED: BENZOCAINE/MENTHOL LOZENGE [8 LOZENGES/PACKET] MM PRN (09:23)
[2017-09-27] MEDS: FLUTICASONE/VILANTEROL 200-25 MCG/INH INHALER [14] IH SCH (10:26)
[2017-09-27] MEDS: TAMSULOSIN HCL 0.4 MG CAPSULE PO SCH (10:29)
[2017-09-27] MEDS: OMEPRAZOLE 20 MG CAPSULE PO SCH (10:30)
[2017-09-27] MEDS: MULTIVITAMINS WITH MINERALS, THERAPEUTIC TABLET PO SCH (10:30)
[2017-09-27] MEDS: CHOLECALCIFEROL (VIT D3) 1,000 UNITS TABLET PO SCH (10:31)
[2017-09-27] MEDS: LORazepam 2 MG TABLET PO PRN (15:18)
[2017-09-27 18:35] VITALS: BP 112/60
[2017-09-27] MEDS: QUEtiapine FUMARATE 300 MG TABLET PO SCH (20:57)
[2017-09-28 06:40] VITALS: BP 107/62
[2017-09-28 08:33] VITALS: BP 109/64
[2017-09-28] MEDS: BENZTROPINE MESYLATE 1 MG TABLET PO SCH (09:51)
[2017-09-28] MEDS: PARoxetine HCL 20 MG TABLET PO SCH (09:51)
[2017-09-28] MEDS: CHOLECALCIFEROL (VIT D3) 1,000 UNITS TABLET PO SCH (09:51)
[2017-09-28] MEDS: OMEPRAZOLE 20 MG CAPSULE PO SCH (09:52)
[2017-09-28] MEDS: FLUTICASONE/VILANTEROL 200-25 MCG/INH INHALER [14] IH SCH (09:52)
[2017-09-28] MEDS: MULTIVITAMINS WITH MINERALS, THERAPEUTIC TABLET PO SCH (09:52)
[2017-09-28] MEDS: TAMSULOSIN HCL 0.4 MG CAPSULE PO SCH (09:52)
[2017-09-28] MEDS: QUEtiapine FUMARATE 100 MG TABLET PO SCH (09:52)
[2017-09-28 16:00] VITALS: BP 110/60
[2017-09-28] MEDS: LORazepam 2 MG TABLET PO PRN (18:31)
[2017-09-28] MEDS: QUEtiapine FUMARATE 300 MG TABLET PO SCH (20:10)
[2017-09-28] MEDS: ZOLPIDEM TARTRATE 10 MG TABLET PO PRN (20:46)
[2017-09-29] MEDS ORDERED: PNEUMOCOCCAL VACCINE POLYVALENT 0.5 ML VIAL [PPSV23] IM ONE (02:00)
[2017-09-29 05:47] VITALS: BP 120/81
[2017-09-29] MEDS: TAMSULOSIN HCL 0.4 MG CAPSULE PO SCH (08:47)
[2017-09-29] MEDS: BENZTROPINE MESYLATE 1 MG TABLET PO SCH (08:47)
[2017-09-29] MEDS: MULTIVITAMINS WITH MINERALS, THERAPEUTIC TABLET PO SCH (08:47)
[2017-09-29] MEDS: OMEPRAZOLE 20 MG CAPSULE PO SCH (08:47)
[2017-09-29] MEDS: PARoxetine HCL 20 MG TABLET PO SCH (08:47)
[2017-09-29] MEDS: FLUTICASONE/VILANTEROL 200-25 MCG/INH INHALER [14] IH SCH (08:48)
[2017-09-29] MEDS: CHOLECALCIFEROL (VIT D3) 1,000 UNITS TABLET PO SCH (08:48)
[2017-09-29] MEDS: QUEtiapine FUMARATE 100 MG TABLET PO SCH (08:48)
[2017-09-29 09:56] VITALS: BP 101/64
[2017-09-29 16:09] VITALS: BP 110/67
[2017-09-29] MEDS: DULoxetine HCL 30 MG CAPSULE PO SCH (16:17)
[2017-09-29] MEDS ORDERED: QUEtiapine FUMARATE 200 MG TABLET PO SCH (21:00)
[2017-09-29] MEDS: ZOLPIDEM TARTRATE 10 MG TABLET PO PRN (21:30)
[2017-09-30 06:24] VITALS: BP 102/68
[2017-09-30 08:15] VITALS: BP 106/68
[2017-09-30] MEDS: FLUTICASONE/VILANTEROL 200-25 MCG/INH INHALER [14] IH SCH (08:57)
[2017-09-30] MEDS: OMEPRAZOLE 20 MG CAPSULE PO SCH (08:57)
[2017-09-30] MEDS: TAMSULOSIN HCL 0.4 MG CAPSULE PO SCH (08:58)
[2017-09-30] MEDS: DULoxetine HCL 30 MG CAPSULE PO SCH ×2 (08:58→16:25)
[2017-09-30] MEDS: BENZTROPINE MESYLATE 1 MG TABLET PO SCH (08:58)
[2017-09-30] MEDS: CHOLECALCIFEROL (VIT D3) 1,000 UNITS TABLET PO SCH (08:58)
[2017-09-30] MEDS: MULTIVITAMINS WITH MINERALS, THERAPEUTIC TABLET PO SCH (08:58)
[2017-09-30] MEDS ORDERED: QUEtiapine FUMARATE 200 MG TABLET PO SCH (09:00)
[2017-09-30 16:35] VITALS: BP 93/54
[2017-09-30] MEDS ORDERED: QUET50TA PO (16:35)
[2017-09-30] MEDS ORDERED: QUET400T PO (16:35)
[2017-09-30] MEDS ORDERED: DULO30CA2 PO (16:47)
[2017-09-30] MEDS ORDERED: OMEP10SU2 PO (16:47)
[2017-09-30] MEDS ORDERED: VITAD1000 PO (16:47)
[2017-09-30] MEDS ORDERED: MULT-723 PO (16:47)
== END 2017-09-30 19:00 | disposition home or self-care (01) | DRG 750 ==
LOC: EMS 18:38 → AHU 21:49 → B2S 09-27 17:57
PROVIDERS: ADMIT Psychiatry & Neurology Psychiatry; ATTEND Psychiatry & Neurology Psychiatry
PROC: 3E0234Z Introduction of Serum, Toxoid and Vaccine into Muscle, Percutaneous Approach (ICD-10-PCS; principal; 2017-09-26)
DX: F25.1 Schizoaffective disorder, depressive type (principal); R45.851 Suicidal ideations; Z59.0 Homelessness; I10 Essential (primary) hypertension; F15.10 Other stimulant abuse, uncomplicated; B18.2 Chronic viral hepatitis C; E03.9 Hypothyroidism, unspecified; F10.229 Alcohol dependence with intoxication, unspecified; F12.90 Cannabis use, unspecified, uncomplicated; Z71.51 Drug abuse counseling and surveillance of drug abuser; F41.9 Anxiety disorder, unspecified; G47.00 Insomnia, unspecified; J44.9 Chronic obstructive pulmonary disease, unspecified; K21.9 Gastro-esophageal reflux disease without esophagitis; N40.0 Benign prostatic hyperplasia without lower urinary tract symptoms; Z72.89 Other problems related to lifestyle; Z71.41 Alcohol abuse counseling and surveillance of alcoholic; Z28.21 Immunization not carried out because of patient refusal; Z23 Encounter for immunization
CPT/HCPCS: 87081; 90471; 99285; G0480

== ENCOUNTER 2017-11-21 21:37 | Inpatient (IN) | payer MEDICAID ==
[~2017-11-21] VITALS: Ht 165.1 cm; Wt 58.5 kg
[~2017-11-21 21:37] MED LIST changes: -DSS100 PO; +DULO30CA2 PO; +MULT-723 PO; +OMEP10SU2 PO; -OMEP20 PO; -QUET100T PO; -QUET300T2 PO; +QUET400T PO; +QUET50TA PO; +VITAD1000 PO
[2017-11-21 22:58] VITALS: BP 94/63
[2017-11-21] MEDS ORDERED: PNEUMOCOCCAL VACCINE POLYVALENT 0.5 ML VIAL [PPSV23] IM ONE (23:15)
[2017-11-21] MEDS ORDERED: LORazepam 2 MG TABLET PO PRN (23:15)
[2017-11-21] MEDS ORDERED: HALOPERIDOL 5 MG TABLET PO PRN (23:15)
[2017-11-21] MEDS ORDERED: ZOLPIDEM TARTRATE 10 MG TABLET PO PRN (23:15)
[2017-11-22 00:17] VITALS: BP 112/71
[2017-11-22] MEDS ORDERED: -PHARMACY VACCINE NOTE- MISC ONE (03:45)
[2017-11-22] MEDS ORDERED: BENZOCAINE/MENTHOL LOZENGE MM PRN (09:00)
[2017-11-22] MEDS ORDERED: ONDANSETRON HCL 4 MG TABLET PO PRN (09:00)
[2017-11-22] MEDS ORDERED: ALBUTEROL SULFATE HFA 90 MCG/PUFF 8 GM INHALER IH PRN (09:00)
[2017-11-22] MEDS ORDERED: IBUPROFEN 600 MG TABLET PO PRN (09:00)
[2017-11-22] MEDS ORDERED: ACETAMINOPHEN 325 MG TABLET PO PRN (09:00)
[2017-11-22] MEDS ORDERED: BACITRACIN 28.4 GM OINTMENT TP PRN (09:00)
[2017-11-22] MEDS ORDERED: MAGNESIUM HYDROXIDE SUSPENSION 30 ML UDCUP PO PRN (09:00)
[2017-11-22] MEDS ORDERED: LOPERAMIDE HCL 2 MG CAPSULE PO PRN (09:00)
[2017-11-22] MEDS ORDERED: PETROLATUM,WHITE 71 GM JELLY TP PRN (09:00)
[2017-11-22] MEDS ORDERED: CloNIDine HCL 0.1 MG TABLET PO PRN (09:00)
[2017-11-22 09:07] VITALS: BP 103/60
[2017-11-22] MEDS: MULTIVITAMINS WITH MINERALS, THERAPEUTIC TABLET PO SCH (09:47)
[2017-11-22] MEDS: FLUTICASONE/VILANTEROL 200-25 MCG/INH INHALER [14] IH SCH (09:47)
[2017-11-22] MEDS: TAMSULOSIN HCL 0.4 MG CAPSULE PO SCH (09:47)
[2017-11-22] MEDS: CHOLECALCIFEROL (VIT D3) 1,000 UNITS TABLET PO SCH (09:47)
[2017-11-22] MEDS: QUEtiapine FUMARATE 200 MG TABLET PO SCH ×2 (10:45→20:14)
[2017-11-22] MEDS: BENZTROPINE MESYLATE 1 MG TABLET PO SCH (10:45)
[2017-11-22] MEDS: DULoxetine HCL 30 MG CAPSULE PO SCH (16:09)
[2017-11-22 16:27] VITALS: BP 105/65
[2017-11-22] MEDS: MAG HYDROX/AL HYDROX/SIMETH ES 30 ML SUSPENSION UDCUP PO PRN (22:17)
[2017-11-23 00:01] VITALS: BP 105/68
[2017-11-23] MEDS: MAG HYDROX/AL HYDROX/SIMETH ES 30 ML SUSPENSION UDCUP PO PRN ×2 (06:13→14:32)
[2017-11-23] MEDS: FLUTICASONE/VILANTEROL 200-25 MCG/INH INHALER [14] IH SCH (08:30)
[2017-11-23] MEDS: CHOLECALCIFEROL (VIT D3) 1,000 UNITS TABLET PO SCH (08:31)
[2017-11-23] MEDS: MULTIVITAMINS WITH MINERALS, THERAPEUTIC TABLET PO SCH (08:31)
[2017-11-23] MEDS: PARoxetine HCL 20 MG TABLET PO SCH (08:31)
[2017-11-23] MEDS: QUEtiapine FUMARATE 200 MG TABLET PO SCH ×2 (08:32→20:25)
[2017-11-23] MEDS: DULoxetine HCL 30 MG CAPSULE PO SCH ×2 (08:32→16:20)
[2017-11-23] MEDS: BENZTROPINE MESYLATE 1 MG TABLET PO SCH (08:32)
[2017-11-23] MEDS: TAMSULOSIN HCL 0.4 MG CAPSULE PO SCH (08:32)
[2017-11-23] MEDS ORDERED: PARoxetine HCL 20 MG TABLET PO SCH (09:00)
[2017-11-23 09:02] VITALS: BP 114/72
[2017-11-23 16:41] VITALS: BP 123/74
[2017-11-24] VITALS: BP 102/63
[2017-11-24 08:38] VITALS: BP 109/74
[2017-11-24] MEDS: MULTIVITAMINS WITH MINERALS, THERAPEUTIC TABLET PO SCH (08:46)
[2017-11-24] MEDS: FLUTICASONE/VILANTEROL 200-25 MCG/INH INHALER [14] IH SCH (08:46)
[2017-11-24] MEDS: QUEtiapine FUMARATE 200 MG TABLET PO SCH ×2 (08:46→20:22)
[2017-11-24] MEDS: PARoxetine HCL 20 MG TABLET PO SCH (08:47)
[2017-11-24] MEDS: CHOLECALCIFEROL (VIT D3) 1,000 UNITS TABLET PO SCH (08:47)
[2017-11-24] MEDS: TAMSULOSIN HCL 0.4 MG CAPSULE PO SCH (08:47)
[2017-11-24] MEDS: BENZTROPINE MESYLATE 1 MG TABLET PO SCH (08:47)
[2017-11-24] MEDS: DULoxetine HCL 30 MG CAPSULE PO SCH ×2 (08:48→16:28)
[2017-11-24 16:11] VITALS: BP 104/62
[2017-11-25 06:29] VITALS: BP 108/62
[2017-11-25] MEDS: PARoxetine HCL 20 MG TABLET PO SCH (08:27)
[2017-11-25] MEDS: FLUTICASONE/VILANTEROL 200-25 MCG/INH INHALER [14] IH SCH (08:27)
[2017-11-25] MEDS: QUEtiapine FUMARATE 200 MG TABLET PO SCH ×2 (08:27→20:23)
[2017-11-25] MEDS: TAMSULOSIN HCL 0.4 MG CAPSULE PO SCH (08:27)
[2017-11-25] MEDS: BENZTROPINE MESYLATE 1 MG TABLET PO SCH (08:28)
[2017-11-25] MEDS: MULTIVITAMINS WITH MINERALS, THERAPEUTIC TABLET PO SCH (08:28)
[2017-11-25] MEDS: DULoxetine HCL 30 MG CAPSULE PO SCH ×2 (08:28→16:45)
[2017-11-25] MEDS: CHOLECALCIFEROL (VIT D3) 1,000 UNITS TABLET PO SCH (08:28)
[2017-11-25 17:25] VITALS: BP 120/76
[2017-11-26 06:53] VITALS: BP 101/61
[2017-11-26 08:05] VITALS: BP 106/60
[2017-11-26] MEDS: PARoxetine HCL 20 MG TABLET PO SCH (08:26)
[2017-11-26] MEDS: BENZTROPINE MESYLATE 1 MG TABLET PO SCH (08:26)
[2017-11-26] MEDS: FLUTICASONE/VILANTEROL 200-25 MCG/INH INHALER [14] IH SCH (08:26)
[2017-11-26] MEDS: TAMSULOSIN HCL 0.4 MG CAPSULE PO SCH (08:27)
[2017-11-26] MEDS: CHOLECALCIFEROL (VIT D3) 1,000 UNITS TABLET PO SCH (08:27)
[2017-11-26] MEDS: DULoxetine HCL 30 MG CAPSULE PO SCH ×2 (08:27→16:31)
[2017-11-26] MEDS: QUEtiapine FUMARATE 200 MG TABLET PO SCH ×2 (08:27→20:10)
[2017-11-26] MEDS: MULTIVITAMINS WITH MINERALS, THERAPEUTIC TABLET PO SCH (08:27)
[2017-11-26 09:39] LABS: BASOPHILS % (AUTO) 0.6 % (0.0-2.0); EOSINOPHILS % (AUTO) 4.4 % (1.0-6.0); HEMATOCRIT 42.2 % (41-53); HEMOGLOBIN 14.8 g/dL (13.5-17.5); LYMPHOCYTES # (AUTO) 1.5 K/uL (1.0-4.8); MEAN CORPUSCULAR HEMOGLOBIN 34.2 pg (26.0-34.0); MEAN CORPUSCULAR HGB CONC 35.2 G/dL (31.0-37.0); MEAN CORPUSCULAR VOLUME 97 fL (80-100); MONOCYTES # (AUTO) 0.5 K/uL (0.1-1.0); RED BLOOD CELL COUNT(AUTO) 4.34 MIL/uL (4.50-5.90); RED CELL DISTRIBUTION WIDTH 12.8 % (11.5-14.5)
[2017-11-26 10:10] LABS: PLATELET COUNT (AUTO) 96 K/uL (150-450)
[2017-11-26 10:27] LABS: ALANINE AMINOTRANSFERASE 161 U/L (12-78); ALKALINE PHOSPHATASE 102 U/L (46-116); ANION GAP 6 mmol/L (8-16); ASPARTATE AMINOTRANSFERASE 106 U/L (15-37); BILIRUBIN,TOTAL 0.4 mg/dL (0.1-1.0); CALCIUM, TOTAL 8.6 mg/dL (8.8-10.5); CARBON DIOXIDE 29 mmol/L (22-29); CHLORIDE 104 mmol/L (98-107); CHOL/HDL RATIO 3.3 (4.2-7.3); CHOLESTEROL 126 mg/dL (131-200); FREE T4 (FREE THYROXINE) 0.64 ng/dL (0.76-1.46); GLOMERULAR FILTR. RATE CALC > 60 mL/min (>60); GLUCOSE,RANDOM 86 mg/dL (70-110); HDL CHOLESTEROL 38 mg/dL (40-60); LDL CHOL (CALC.) 76 mg/dL (0-130); POTASSIUM 4.3 mmol/L (3.5-5.1); SODIUM SERUM 139 mmol/L (136-145); THYROID STIMULATING HORMONE 0.57 uIU/mL (0.36-3.74); TOTAL PROTEIN, SERUM 6.6 g/dL (6.4-8.2); TRIGLYCERIDES 62 mg/dL (15-150); UREA NITROGEN, BLOOD 28 mg/dL (7-18)
[2017-11-26 15:03] LABS: HEMOGLOBIN A1C 5.1 % (4.5-6.2)
[2017-11-26 16:34] VITALS: BP 105/60
[2017-11-27 06:16] VITALS: BP 100/59
[2017-11-27 08:18] VITALS: BP 110/77
[2017-11-27] MEDS: DULoxetine HCL 30 MG CAPSULE PO SCH ×2 (08:31→16:34)
[2017-11-27] MEDS: MULTIVITAMINS WITH MINERALS, THERAPEUTIC TABLET PO SCH (08:31)
[2017-11-27] MEDS: CHOLECALCIFEROL (VIT D3) 1,000 UNITS TABLET PO SCH (08:31)
[2017-11-27] MEDS: QUEtiapine FUMARATE 200 MG TABLET PO SCH ×2 (08:32→20:28)
[2017-11-27] MEDS: PARoxetine HCL 20 MG TABLET PO SCH (08:32)
[2017-11-27] MEDS: TAMSULOSIN HCL 0.4 MG CAPSULE PO SCH (08:32)
[2017-11-27] MEDS: FLUTICASONE/VILANTEROL 200-25 MCG/INH INHALER [14] IH SCH (08:32)
[2017-11-27] MEDS: BENZTROPINE MESYLATE 1 MG TABLET PO SCH (08:32)
[2017-11-27] MEDS ORDERED: LOPERAMIDE HCL 2 MG CAPSULE PO ONE (13:15)
[2017-11-27 16:05] VITALS: BP 108/64
[2017-11-28 06:50] VITALS: BP 110/68
[2017-11-28] MEDS: DULoxetine HCL 30 MG CAPSULE PO SCH (08:32)
[2017-11-28] MEDS: PARoxetine HCL 20 MG TABLET PO SCH (08:32)
[2017-11-28] MEDS: QUEtiapine FUMARATE 200 MG TABLET PO SCH (08:32)
[2017-11-28] MEDS: BENZTROPINE MESYLATE 1 MG TABLET PO SCH (08:32)
[2017-11-28] MEDS: TAMSULOSIN HCL 0.4 MG CAPSULE PO SCH (08:32)
[2017-11-28] MEDS: CHOLECALCIFEROL (VIT D3) 1,000 UNITS TABLET PO SCH (08:32)
[2017-11-28] MEDS: MULTIVITAMINS WITH MINERALS, THERAPEUTIC TABLET PO SCH (08:33)
[2017-11-28] MEDS: FLUTICASONE/VILANTEROL 200-25 MCG/INH INHALER [14] IH SCH (08:33)
[2017-11-28] MEDS ORDERED: DULO30CA2 PO (12:33)
[2017-11-28] MEDS ORDERED: BENZ1TAB10 PO (12:33)
[2017-11-28] MEDS ORDERED: PARO-37 PO (12:33)
[2017-11-28] MEDS ORDERED: QUET200T29 PO ×2 (12:33)
== END 2017-11-28 16:45 | disposition home or self-care (01) | DRG 750 ==
LOC: B2S 22:10
PROVIDERS: ADMIT Psychiatry & Neurology Child & Adolescent Psychiatry; ATTEND Psychiatry & Neurology Child & Adolescent Psychiatry
PROC: 3E0234Z Introduction of Serum, Toxoid and Vaccine into Muscle, Percutaneous Approach (ICD-10-PCS; principal; 2017-11-22)
DX: F25.1 Schizoaffective disorder, depressive type (principal); E44.1 Mild protein-calorie malnutrition; D69.6 Thrombocytopenia, unspecified; I10 Essential (primary) hypertension; B18.2 Chronic viral hepatitis C; F17.200 Nicotine dependence, unspecified, uncomplicated; F41.0 Panic disorder [episodic paroxysmal anxiety]; J44.9 Chronic obstructive pulmonary disease, unspecified; K21.9 Gastro-esophageal reflux disease without esophagitis; N40.0 Benign prostatic hyperplasia without lower urinary tract symptoms; F19.10 Other psychoactive substance abuse, uncomplicated; F15.90 Other stimulant use, unspecified, uncomplicated; Z23 Encounter for immunization; Z68.21 Body mass index [BMI] 21.0-21.9, adult; Z71.6 Tobacco abuse counseling; Z59.0 Homelessness; Z79.899 Other long term (current) drug therapy
CPT/HCPCS: 83036; 84439; 84443; 90471

== ENCOUNTER 2019-03-11 14:52 | Emergency (ER) | payer MEDICAID ==
[~2019-03-11] VITALS: Ht 170.2 cm; Wt 59.1 kg
[~2019-03-11 14:52] MED LIST changes: -MULT-723 PO; -OMEP10SU2 PO; +PARO-37 PO; -PARO20TA24 PO; +QUET200T29 PO; -QUET400T PO; -QUET50TA PO
[2019-03-11 21:41] VITALS: BP 103/69
== END 2019-03-11 22:37 | disposition home or self-care (01) ==
LOC: EMS 14:53
DX: B86 Scabies (principal); F15.10 Other stimulant abuse, uncomplicated; R03.0 Elevated blood-pressure reading, without diagnosis of hypertension; R45.851 Suicidal ideations; E03.9 Hypothyroidism, unspecified; F31.9 Bipolar disorder, unspecified; F41.9 Anxiety disorder, unspecified; F20.9 Schizophrenia, unspecified; Z59.0 Homelessness; Z79.899 Other long term (current) drug therapy

== ENCOUNTER 2019-03-11 23:40 | Inpatient (IN) | payer MEDICAID ==
[~2019-03-11] VITALS: Ht 154.9 cm; Wt 57.6 kg
[2019-03-12 04:03] LABS: AMPHET/METH SCREEN,URINE POSITIVE (NEGATIVE); BARBITURATE SCREEN, URINE NEGATIVE (NEGATIVE); BENZODIAZEPINES SCREEN,URINE NEGATIVE (NEGATIVE); CANNABINOID SCREEN,URINE POSITIVE (NEGATIVE); COCAINE SCREEN,URINE NEGATIVE (NEGATIVE); METHADONE SCREEN, URINE NEGATIVE (NEGATIVE); OPIATE SCREEN,URINE NEGATIVE (NEGATIVE); PHENCYCLIDINE SCREEN,URINE NEGATIVE (NEGATIVE)
[2019-03-12 04:16] LABS: BASOPHILS % (AUTO) 1.4 % (0.0-2.0); EOSINOPHILS % (AUTO) 5.3 % (1.0-6.0); HEMATOCRIT 40.6 % (41-53); HEMOGLOBIN 14.2 g/dL (13.5-17.5); LYMPHOCYTES # (AUTO) 1.7 K/uL (1.0-4.8); LYMPHOCYTES % (AUTO) 36.1 % (22.0-44.0); MEAN CORPUSCULAR HEMOGLOBIN 33.3 pg (26.0-34.0); MEAN CORPUSCULAR VOLUME 95 fL (80-100); MONOCYTES # (AUTO) 0.5 K/uL (0.1-1.0); MONOCYTES % (AUTO) 11.6 % (2.0-9.0); NEUTROPHILS # (AUTO) 2.1 K/uL (1.8-7.7); NEUTROPHILS % (AUTO) 45.6 % (40.0-70.0); PLATELET COUNT (AUTO) 128 K/uL (150-450); RED BLOOD CELL COUNT(AUTO) 4.28 MIL/uL (4.50-5.90); RED CELL DISTRIBUTION WIDTH 13.2 % (11.5-14.5)
[2019-03-12 04:23] LABS: ANION GAP 12 mmol/L (8-16); CALCIUM, TOTAL 9.5 mg/dL (8.8-10.5); CARBON DIOXIDE 27 mmol/L (22-29); CHLORIDE 104 mmol/L (98-107); CREATININE 0.96 mg/dL (0.60-1.30); GLOMERULAR FILTR. RATE CALC > 60 mL/min (>60); GLUCOSE,RANDOM 84 mg/dL (70-110); POTASSIUM 3.6 mmol/L (3.5-5.1); SODIUM SERUM 143 mmol/L (136-145); UREA NITROGEN, BLOOD 16 mg/dL (7-18)
[2019-03-12 04:31] LABS: ALANINE AMINOTRANSFERASE 122 U/L (12-78); ALBUMIN 3.4 g/dL (3.4-5.0); ALKALINE PHOSPHATASE 88 U/L (46-116); ASPARTATE AMINOTRANSFERASE 99 U/L (15-37); BILIRUBIN,TOTAL 1.5 mg/dL (0.1-1.0); TOTAL PROTEIN, SERUM 7.1 g/dL (6.4-8.2)
[2019-03-12] MEDS ORDERED: PERMETHRIN 5% 60 GM CREAM TP ONE (05:30)
[2019-03-12] MEDS ORDERED: ZOLPIDEM TARTRATE 10 MG TABLET PO PRN (11:15)
[2019-03-12] MEDS: LORazepam 2 MG TABLET PO PRN (19:37)
[2019-03-12] MEDS: HALOPERIDOL 5 MG TABLET PO PRN (19:37)
[2019-03-12 20:18] VITALS: BP 118/70
[2019-03-13 07:39] LABS: CHOL/HDL RATIO 2.9 (4.2-7.3)
[2019-03-13] MEDS ORDERED: BENZOCAINE/MENTHOL LOZENGE MM PRN (08:30)
[2019-03-13] MEDS ORDERED: MAGNESIUM HYDROXIDE SUSPENSION 30 ML UDCUP PO PRN (08:30)
[2019-03-13] MEDS ORDERED: PETROLATUM,WHITE 28 GM JELLY TP PRN (08:30)
[2019-03-13] MEDS ORDERED: BACITRACIN 28.4 GM OINTMENT TP PRN (08:30)
[2019-03-13] MEDS ORDERED: ALBUTEROL SULFATE HFA 90 MCG/PUFF 8 GM INHALER IH PRN (08:30)
[2019-03-13] MEDS ORDERED: LOPERAMIDE HCL 2 MG CAPSULE PO PRN (08:30)
[2019-03-13] MEDS ORDERED: MAG HYDROX/AL HYDROX/SIMETH ES 30 ML SUSPENSION UDCUP PO PRN (08:30)
[2019-03-13] MEDS ORDERED: DOCUSATE SODIUM 100 MG CAPSULE PO PRN (08:30)
[2019-03-13] MEDS ORDERED: IBUPROFEN 600 MG TABLET PO PRN (08:30)
[2019-03-13] MEDS ORDERED: OMEPRAZOLE 20 MG CAPSULE PO PRN (08:30)
[2019-03-13] MEDS ORDERED: ONDANSETRON HCL 4 MG TABLET PO PRN (08:30)
[2019-03-13] MEDS ORDERED: CloNIDine HCL 0.1 MG TABLET PO PRN (08:30)
[2019-03-13] MEDS ORDERED: ACETAMINOPHEN 325 MG TABLET PO PRN (08:30)
[2019-03-13] MEDS: TAMSULOSIN HCL 0.4 MG CAPSULE PO SCH (09:54)
[2019-03-13] MEDS: LORazepam 2 MG TABLET PO PRN (11:19)
[2019-03-13] MEDS: DULoxetine HCL 60 MG CAPSULE PO SCH (16:20)
[2019-03-13] MEDS: QUEtiapine FUMARATE 25 MG TABLET PO SCH (16:20)
[2019-03-13] MEDS: HALOPERIDOL 5 MG TABLET PO PRN (16:22)
[2019-03-13 19:43] VITALS: BP 121/75
[2019-03-13] MEDS: QUEtiapine FUMARATE 300 MG TABLET PO SCH (20:04)
[2019-03-14] MEDS: DULoxetine HCL 60 MG CAPSULE PO SCH ×2 (10:10→16:29)
[2019-03-14] MEDS: TAMSULOSIN HCL 0.4 MG CAPSULE PO SCH (10:10)
[2019-03-14] MEDS: QUEtiapine FUMARATE 25 MG TABLET PO SCH ×2 (10:10→16:29)
[2019-03-14 10:12] VITALS: BP 100/51
[2019-03-14] MEDS: QUEtiapine FUMARATE 300 MG TABLET PO SCH (20:11)
[2019-03-14 20:17] VITALS: BP 106/66
[2019-03-15 09:25] VITALS: BP 105/69
[2019-03-15] MEDS: TAMSULOSIN HCL 0.4 MG CAPSULE PO SCH (11:22)
[2019-03-15] MEDS: DULoxetine HCL 60 MG CAPSULE PO SCH ×2 (11:23→16:23)
[2019-03-15] MEDS: QUEtiapine FUMARATE 25 MG TABLET PO SCH (11:23)
[2019-03-15 19:11] VITALS: BP 93/78
[2019-03-15] MEDS ORDERED: QUEtiapine FUMARATE 200 MG TABLET PO SCH (21:00)
[2019-03-16] MEDS: DULoxetine HCL 60 MG CAPSULE PO SCH ×2 (09:24→17:38)
[2019-03-16] MEDS: TAMSULOSIN HCL 0.4 MG CAPSULE PO SCH (09:24)
[2019-03-16] MEDS: QUEtiapine FUMARATE 100 MG TABLET PO SCH (09:25)
[2019-03-16 10:13] VITALS: BP 100/72
[2019-03-16] MEDS: LORazepam 2 MG TABLET PO PRN (18:14)
[2019-03-16 19:46] VITALS: BP 112/68
[2019-03-16] MEDS: QUEtiapine FUMARATE 300 MG TABLET PO SCH (21:11)
[2019-03-17 03:21] VITALS: BP 102/62
[2019-03-17] MEDS: TAMSULOSIN HCL 0.4 MG CAPSULE PO SCH (08:39)
[2019-03-17] MEDS: QUEtiapine FUMARATE 100 MG TABLET PO SCH (08:39)
[2019-03-17] MEDS: DULoxetine HCL 60 MG CAPSULE PO SCH ×2 (08:40→17:15)
[2019-03-17 10:10] VITALS: BP 91/62
[2019-03-17] MEDS: LORazepam 2 MG TABLET PO PRN (14:00)
[2019-03-17 19:18] VITALS: BP 104/72
[2019-03-17] MEDS: QUEtiapine FUMARATE 300 MG TABLET PO SCH (20:43)
[2019-03-18 06:35] LABS: BASOPHILS % (AUTO) 1.2 % (0.0-2.0); EOSINOPHILS % (AUTO) 5.9 % (1.0-6.0); HEMATOCRIT 38.9 % (41-53); HEMOGLOBIN 13.3 g/dL (13.5-17.5); LYMPHOCYTES # (AUTO) 1.2 K/uL (1.0-4.8); LYMPHOCYTES % (AUTO) 33.5 % (22.0-44.0); MEAN CORPUSCULAR HEMOGLOBIN 33.2 pg (26.0-34.0); MEAN CORPUSCULAR HGB CONC 34.1 G/dL (31.0-37.0); MEAN CORPUSCULAR VOLUME 97 fL (80-100); MONOCYTES # (AUTO) 0.5 K/uL (0.1-1.0); MONOCYTES % (AUTO) 13.8 % (2.0-9.0); NEUTROPHILS # (AUTO) 1.7 K/uL (1.8-7.7); NEUTROPHILS % (AUTO) 45.6 % (40.0-70.0); PLATELET COUNT (AUTO) 103 K/uL (150-450); RED CELL DISTRIBUTION WIDTH 13.4 % (11.5-14.5)
[2019-03-18 07:03] LABS: ALANINE AMINOTRANSFERASE 152 U/L (12-78); ALBUMIN 2.8 g/dL (3.4-5.0); ALKALINE PHOSPHATASE 97 U/L (46-116); ANION GAP 6 mmol/L (8-16); ASPARTATE AMINOTRANSFERASE 105 U/L (15-37); BILIRUBIN,TOTAL 0.3 mg/dL (0.1-1.0); CALCIUM, TOTAL 9.1 mg/dL (8.8-10.5); CARBON DIOXIDE 29 mmol/L (22-29); CHLORIDE 104 mmol/L (98-107); CREATININE 1.06 mg/dL (0.60-1.30); GLOMERULAR FILTR. RATE CALC > 60 mL/min (>60); GLUCOSE,RANDOM 78 mg/dL (70-110); POTASSIUM 4.3 mmol/L (3.5-5.1); SODIUM SERUM 139 mmol/L (136-145); TOTAL PROTEIN, SERUM 6.2 g/dL (6.4-8.2); UREA NITROGEN, BLOOD 32 mg/dL (7-18)
[2019-03-18] MEDS: TAMSULOSIN HCL 0.4 MG CAPSULE PO SCH (08:45)
[2019-03-18] MEDS: QUEtiapine FUMARATE 200 MG TABLET PO SCH (08:46)
[2019-03-18] MEDS: DULoxetine HCL 60 MG CAPSULE PO SCH ×2 (08:46→17:43)
[2019-03-18 09:00] VITALS: BP 97/60
[2019-03-18 18:00] VITALS: BP 102/68
[2019-03-18 19:15] VITALS: BP 102/68
[2019-03-18 21:38] VITALS: BP 105/67
[2019-03-18] MEDS: QUEtiapine FUMARATE 300 MG TABLET PO SCH (21:38)
[2019-03-19 08:41] VITALS: BP 102/60
[2019-03-19] MEDS: TAMSULOSIN HCL 0.4 MG CAPSULE PO SCH (08:52)
[2019-03-19] MEDS: DULoxetine HCL 60 MG CAPSULE PO SCH ×2 (08:53→16:55)
[2019-03-19] MEDS: QUEtiapine FUMARATE 200 MG TABLET PO SCH (08:53)
[2019-03-19] MEDS: LITHIUM CARBONATE 300 MG ER TABLET PO SCH (16:55)
[2019-03-19] MEDS: LORazepam 2 MG TABLET PO PRN (18:30)
[2019-03-19 18:33] VITALS: BP 109/71
[2019-03-19] MEDS: QUEtiapine FUMARATE 300 MG TABLET PO SCH (20:59)
[2019-03-20 08:00] VITALS: BP 88/52
[2019-03-20] MEDS: QUEtiapine FUMARATE 200 MG TABLET PO SCH (08:43)
[2019-03-20] MEDS: DULoxetine HCL 60 MG CAPSULE PO SCH ×2 (08:43→18:00)
[2019-03-20] MEDS: TAMSULOSIN HCL 0.4 MG CAPSULE PO SCH (08:43)
[2019-03-20] MEDS: LITHIUM CARBONATE 300 MG ER TABLET PO SCH ×2 (08:44→17:00)
[2019-03-20 16:31] VITALS: BP 99/54
[2019-03-20] MEDS: QUEtiapine FUMARATE 300 MG TABLET PO SCH (20:53)
[2019-03-20] MEDS: LORazepam 2 MG TABLET PO PRN ×2 (20:54→21:57)
[2019-03-21] MEDS: LITHIUM CARBONATE 300 MG ER TABLET PO SCH ×3 (09:00→17:00)
[2019-03-21] MEDS: DULoxetine HCL 60 MG CAPSULE PO SCH ×2 (09:42→16:35)
[2019-03-21] MEDS: TAMSULOSIN HCL 0.4 MG CAPSULE PO SCH (09:42)
[2019-03-21] MEDS: QUEtiapine FUMARATE 200 MG TABLET PO SCH (09:42)
[2019-03-21 13:20] VITALS: BP 87/59
[2019-03-21 16:59] VITALS: BP 103/58
[2019-03-21] MEDS: QUEtiapine FUMARATE 300 MG TABLET PO SCH (21:30)
[2019-03-22 06:00] LABS: BASOPHILS % (AUTO) 0.8 % (0.0-2.0); EOSINOPHILS % (AUTO) 4.6 % (1.0-6.0); HEMATOCRIT 38.7 % (41-53); HEMOGLOBIN 13.1 g/dL (13.5-17.5); LYMPHOCYTES # (AUTO) 1.3 K/uL (1.0-4.8); LYMPHOCYTES % (AUTO) 32.7 % (22.0-44.0); MEAN CORPUSCULAR HEMOGLOBIN 33.2 pg (26.0-34.0); MEAN CORPUSCULAR HGB CONC 33.9 G/dL (31.0-37.0); MEAN CORPUSCULAR VOLUME 98 fL (80-100); MONOCYTES # (AUTO) 0.6 K/uL (0.1-1.0); MONOCYTES % (AUTO) 14.8 % (2.0-9.0); NEUTROPHILS # (AUTO) 1.9 K/uL (1.8-7.7); NEUTROPHILS % (AUTO) 47.1 % (40.0-70.0); PLATELET COUNT (AUTO) 112 K/uL (150-450); RED BLOOD CELL COUNT(AUTO) 3.95 MIL/uL (4.50-5.90); RED CELL DISTRIBUTION WIDTH 13.6 % (11.5-14.5)
[2019-03-22 06:34] LABS: ALANINE AMINOTRANSFERASE 190 U/L (12-78); ALBUMIN 2.8 g/dL (3.4-5.0); ALKALINE PHOSPHATASE 100 U/L (46-116); ANION GAP 5 mmol/L (8-16); ASPARTATE AMINOTRANSFERASE 122 U/L (15-37); BILIRUBIN,TOTAL 0.3 mg/dL (0.1-1.0); CALCIUM, TOTAL 9.1 mg/dL (8.8-10.5); CARBON DIOXIDE 30 mmol/L (22-29); CHLORIDE 102 mmol/L (98-107); CREATININE 1.07 mg/dL (0.60-1.30); GLOMERULAR FILTR. RATE CALC > 60 mL/min (>60); GLUCOSE,RANDOM 83 mg/dL (70-110); POTASSIUM 4.3 mmol/L (3.5-5.1); SODIUM SERUM 137 mmol/L (136-145); THYROID STIMULATING HORMONE 0.66 uIU/mL (0.36-3.74); TOTAL PROTEIN, SERUM 6.5 g/dL (6.4-8.2); UREA NITROGEN, BLOOD 38 mg/dL (7-18)
[2019-03-22 06:48] LABS: LITHIUM < 0.20 mmol/L (0.60-1.20)
[2019-03-22] MEDS: DULoxetine HCL 60 MG CAPSULE PO SCH ×2 (08:43→16:13)
[2019-03-22] MEDS: QUEtiapine FUMARATE 200 MG TABLET PO SCH (08:43)
[2019-03-22] MEDS: TAMSULOSIN HCL 0.4 MG CAPSULE PO SCH (08:44)
[2019-03-22] MEDS: LITHIUM CARBONATE 300 MG ER TABLET PO SCH ×2 (08:48→16:14)
[2019-03-22 09:07] VITALS: BP 109/63
[2019-03-22] MEDS ORDERED: QUET300T2 PO (13:25)
[2019-03-22] MEDS ORDERED: DULO60CA44 PO (13:25)
[2019-03-22] MEDS ORDERED: LITH300CRT PO (13:25)
[2019-03-22] MEDS ORDERED: QUET200T PO (13:25)
== END 2019-03-22 17:45 | disposition home or self-care (01) | DRG 750 ==
LOC: EMS 23:43 → 3EI 03-12 17:58
PROVIDERS: ADMIT Psychiatry & Neurology Psychiatry; ATTEND Psychiatry & Neurology Psychiatry
DX: F25.1 Schizoaffective disorder, depressive type (principal); R45.851 Suicidal ideations; F15.20 Other stimulant dependence, uncomplicated; E44.1 Mild protein-calorie malnutrition; B86 Scabies; F12.10 Cannabis abuse, uncomplicated; B18.2 Chronic viral hepatitis C; F17.200 Nicotine dependence, unspecified, uncomplicated; N40.0 Benign prostatic hyperplasia without lower urinary tract symptoms; K21.9 Gastro-esophageal reflux disease without esophagitis; E03.9 Hypothyroidism, unspecified; J44.9 Chronic obstructive pulmonary disease, unspecified; I10 Essential (primary) hypertension; F41.9 Anxiety disorder, unspecified; R45.87 Impulsiveness; R41.843 Psychomotor deficit; Z79.899 Other long term (current) drug therapy; Z91.5 Personal history of self-harm; Z59.0 Homelessness; Z71.6 Tobacco abuse counseling; Z68.24 Body mass index [BMI] 24.0-24.9, adult; Z56.0 Unemployment, unspecified
CPT/HCPCS: 84443; G0480

== ENCOUNTER 2019-03-25 15:14 | Inpatient (IN) | payer MEDICAID ==
[~2019-03-25] VITALS: Ht 165.1 cm; Wt 56.4 kg
[~2019-03-25 15:14] MED LIST changes: -BENZ1TAB10 PO; -DULO30CA2 PO; +DULO60CA44 PO; -FLUT1BLS IH; -PARO-37 PO; +QUET200T PO; -QUET200T29 PO; +QUET300T2 PO; -VITAD1000 PO
[2019-03-25 16:01] VITALS: BP 143/93
[2019-03-25] MEDS ORDERED: HALOPERIDOL 5 MG TABLET PO PRN (16:15)
[2019-03-25] MEDS ORDERED: ZOLPIDEM TARTRATE 10 MG TABLET PO PRN (16:15)
[2019-03-25] MEDS ORDERED: PERMETHRIN 5% 60 GM CREAM TP ONE (17:30)
[2019-03-25 17:37] VITALS: BP 115/64
[2019-03-25] MEDS: DULoxetine HCL 60 MG CAPSULE PO SCH (22:52)
[2019-03-25] MEDS: QUEtiapine FUMARATE 300 MG TABLET PO SCH (22:54)
[2019-03-26 00:24] VITALS: BP 108/62
[2019-03-26 08:05] LABS: BASOPHILS % (AUTO) 1.3 % (0.0-2.0); HEMATOCRIT 42.8 % (41-53); HEMOGLOBIN 14.4 g/dL (13.5-17.5); LYMPHOCYTES # (AUTO) 1.6 K/uL (1.0-4.8); LYMPHOCYTES % (AUTO) 39.8 % (22.0-44.0); MEAN CORPUSCULAR HGB CONC 33.7 G/dL (31.0-37.0); MEAN CORPUSCULAR VOLUME 98 fL (80-100); MONOCYTES # (AUTO) 0.6 K/uL (0.1-1.0); NEUTROPHILS # (AUTO) 1.5 K/uL (1.8-7.7); NEUTROPHILS % (AUTO) 38.9 % (40.0-70.0); PLATELET COUNT (AUTO) 150 K/uL (150-450); RED BLOOD CELL COUNT(AUTO) 4.37 MIL/uL (4.50-5.90)
[2019-03-26 08:15] LABS: HEMOGLOBIN A1C 5.5 % (4.5-6.2)
[2019-03-26] MEDS: QUEtiapine FUMARATE 200 MG TABLET PO SCH (08:15)
[2019-03-26] MEDS: DULoxetine HCL 60 MG CAPSULE PO SCH ×2 (08:15→16:07)
[2019-03-26 08:30] VITALS: BP 100/60
[2019-03-26 08:36] LABS: ANION GAP 8 mmol/L (8-16); CARBON DIOXIDE 26 mmol/L (22-29); CHLORIDE 104 mmol/L (98-107); CREATININE 0.97 mg/dL (0.60-1.30); GLUCOSE,RANDOM 109 mg/dL (70-110); POTASSIUM 3.7 mmol/L (3.5-5.1); SODIUM SERUM 138 mmol/L (136-145); UREA NITROGEN, BLOOD 28 mg/dL (7-18)
[2019-03-26 08:37] LABS: ALANINE AMINOTRANSFERASE 189 U/L (12-78); ALBUMIN 3.1 g/dL (3.4-5.0); ALKALINE PHOSPHATASE 112 U/L (46-116); ASPARTATE AMINOTRANSFERASE 113 U/L (15-37); BILIRUBIN,TOTAL 1.1 mg/dL (0.1-1.0); CALCIUM, TOTAL 9.2 mg/dL (8.8-10.5); CHOL/HDL RATIO 2.3 (4.2-7.3); CHOLESTEROL 143 mg/dL (131-200); FREE T4 (FREE THYROXINE) 1.13 ng/dL (0.76-1.46); GLOMERULAR FILTR. RATE CALC > 60 mL/min (>60); HDL CHOLESTEROL 62 mg/dL (40-60); LDL CHOL (CALC.) 72 mg/dL (0-130); THYROID STIMULATING HORMONE 0.71 uIU/mL (0.36-3.74); TRIGLYCERIDES 45 mg/dL (15-150)
[2019-03-26 16:34] VITALS: BP 110/62
[2019-03-26] MEDS: QUEtiapine FUMARATE 300 MG TABLET PO SCH (20:27)
[2019-03-26] MEDS: LORazepam 2 MG TABLET PO PRN (21:07)
[2019-03-27] MEDS: QUEtiapine FUMARATE 200 MG TABLET PO SCH (08:36)
[2019-03-27] MEDS: DULoxetine HCL 60 MG CAPSULE PO SCH ×2 (08:36→16:06)
[2019-03-27 09:55] VITALS: BP 117/67
[2019-03-27 16:19] VITALS: BP 107/72
[2019-03-27] MEDS: QUEtiapine FUMARATE 300 MG TABLET PO SCH (20:08)
[2019-03-27] MEDS: LORazepam 2 MG TABLET PO PRN (21:40)
[2019-03-28 02:15] VITALS: BP 102/70
[2019-03-28] MEDS: DULoxetine HCL 60 MG CAPSULE PO SCH ×2 (08:53→17:16)
[2019-03-28] MEDS: QUEtiapine FUMARATE 200 MG TABLET PO SCH (08:53)
[2019-03-28 13:14] VITALS: BP 116/81
[2019-03-28] MEDS: LORazepam 2 MG TABLET PO PRN (13:25)
[2019-03-28 16:06] VITALS: BP 100/61
[2019-03-28] MEDS: QUEtiapine FUMARATE 300 MG TABLET PO SCH (20:16)
[2019-03-29 01:27] VITALS: BP 101/93
[2019-03-29] MEDS: QUEtiapine FUMARATE 200 MG TABLET PO SCH (08:11)
[2019-03-29] MEDS: DULoxetine HCL 60 MG CAPSULE PO SCH ×2 (08:12→16:05)
[2019-03-29] MEDS ORDERED: CloNIDine HCL 0.1 MG TABLET PO PRN (08:15)
[2019-03-29] MEDS ORDERED: PETROLATUM,WHITE 28 GM JELLY TP PRN (08:15)
[2019-03-29] MEDS ORDERED: OMEPRAZOLE 20 MG CAPSULE PO PRN (08:15)
[2019-03-29] MEDS ORDERED: ACETAMINOPHEN 325 MG TABLET PO PRN (08:15)
[2019-03-29] MEDS ORDERED: ALBUTEROL SULFATE HFA 90 MCG/PUFF 8 GM INHALER IH PRN (08:15)
[2019-03-29] MEDS ORDERED: BENZOCAINE/MENTHOL LOZENGE MM PRN (08:15)
[2019-03-29] MEDS ORDERED: BACITRACIN 28.4 GM OINTMENT TP PRN (08:15)
[2019-03-29] MEDS ORDERED: MAG HYDROX/AL HYDROX/SIMETH ES 30 ML SUSPENSION UDCUP PO PRN (08:15)
[2019-03-29] MEDS ORDERED: ONDANSETRON HCL 4 MG TABLET PO PRN (08:15)
[2019-03-29] MEDS ORDERED: DOCUSATE SODIUM 100 MG CAPSULE PO PRN (08:15)
[2019-03-29] MEDS ORDERED: MAGNESIUM HYDROXIDE SUSPENSION 30 ML UDCUP PO PRN (08:15)
[2019-03-29] MEDS ORDERED: IBUPROFEN 600 MG TABLET PO PRN (08:15)
[2019-03-29] MEDS ORDERED: LOPERAMIDE HCL 2 MG CAPSULE PO PRN (08:15)
[2019-03-29] MEDS: TAMSULOSIN HCL 0.4 MG CAPSULE PO SCH (08:57)
[2019-03-29] MEDS ORDERED: HYDROCORTISONE 1% 120 ML LOTION TP PRN (14:15)
[2019-03-29 16:03] VITALS: BP 117/66
[2019-03-29] MEDS: QUEtiapine FUMARATE 200 MG ER TABLET PO SCH (20:25)
[2019-03-30 06:33] VITALS: BP 108/60
[2019-03-30 08:06] VITALS: BP 95/69
[2019-03-30] MEDS: TAMSULOSIN HCL 0.4 MG CAPSULE PO SCH (09:29)
[2019-03-30] MEDS: DULoxetine HCL 60 MG CAPSULE PO SCH ×2 (09:30→16:08)
[2019-03-30 13:42] VITALS: BP 111/68
[2019-03-30] MEDS: LORazepam 2 MG TABLET PO PRN (13:44)
[2019-03-30 16:15] VITALS: BP 103/73
[2019-03-30] MEDS: QUEtiapine FUMARATE 200 MG ER TABLET PO SCH (20:13)
[2019-03-31 05:14] VITALS: BP 108/62
[2019-03-31] MEDS: TAMSULOSIN HCL 0.4 MG CAPSULE PO SCH (08:14)
[2019-03-31] MEDS: DULoxetine HCL 60 MG CAPSULE PO SCH ×2 (08:14→16:03)
[2019-03-31 08:26] VITALS: BP_SYST 108; BP_SYST 91; BP_DIAS 55; BP_DIAS 68
[2019-03-31] MEDS: LORazepam 2 MG TABLET PO PRN ×2 (11:08→16:01)
[2019-03-31 16:11] VITALS: BP 109/74
[2019-03-31] MEDS: QUEtiapine FUMARATE 200 MG ER TABLET PO SCH (20:13)
[2019-04-01 03:58] VITALS: BP 102/68
[2019-04-01 08:07] VITALS: BP 103/62
[2019-04-01] MEDS: DULoxetine HCL 60 MG CAPSULE PO SCH (08:17)
[2019-04-01] MEDS: TAMSULOSIN HCL 0.4 MG CAPSULE PO SCH (08:17)
[2019-04-01] MEDS ORDERED: QUET300T5 PO (10:04)
== END 2019-04-01 13:35 | disposition home or self-care (01) | DRG 750 ==
LOC: B2S 16:11
PROVIDERS: ADMIT Psychiatry & Neurology Psychiatry; ATTEND Psychiatry & Neurology Psychiatry
DX: F25.1 Schizoaffective disorder, depressive type (principal); E44.1 Mild protein-calorie malnutrition; R45.851 Suicidal ideations; B18.2 Chronic viral hepatitis C; F17.200 Nicotine dependence, unspecified, uncomplicated; F19.90 Other psychoactive substance use, unspecified, uncomplicated; F41.9 Anxiety disorder, unspecified; I10 Essential (primary) hypertension; J44.9 Chronic obstructive pulmonary disease, unspecified; K21.9 Gastro-esophageal reflux disease without esophagitis; B19.20 Unspecified viral hepatitis C without hepatic coma; L29.9 Pruritus, unspecified; N40.0 Benign prostatic hyperplasia without lower urinary tract symptoms; Z59.0 Homelessness; Z68.20 Body mass index [BMI] 20.0-20.9, adult; Z71.6 Tobacco abuse counseling; Z79.899 Other long term (current) drug therapy; Z91.5 Personal history of self-harm; Z65.3 Problems related to other legal circumstances; Z63.9 Problem related to primary support group, unspecified; Z65.9 Problem related to unspecified psychosocial circumstances; Z56.0 Unemployment, unspecified
CPT/HCPCS: 83036; 84439; 84443; 87081

== ENCOUNTER 2019-04-07 13:57 | Inpatient (IN) | payer MEDICAID ==
[~2019-04-07] VITALS: Ht 165.1 cm; Wt 59.4 kg
[~2019-04-07 13:57] MED LIST changes: -QUET200T PO; -QUET300T2 PO; +QUET300T5 PO
[2019-04-07 15:56] LABS: BASOPHILS % (AUTO) 1.2 % (0.0-2.0); EOSINOPHILS % (AUTO) 3.3 % (1.0-6.0); HEMATOCRIT 39.4 % (41-53); HEMOGLOBIN 13.4 g/dL (13.5-17.5); LYMPHOCYTES # (AUTO) 1.5 K/uL (1.0-4.8); LYMPHOCYTES % (AUTO) 32.7 % (22.0-44.0); MEAN CORPUSCULAR HEMOGLOBIN 33.5 pg (26.0-34.0); MEAN CORPUSCULAR HGB CONC 34.2 G/dL (31.0-37.0); MEAN CORPUSCULAR VOLUME 98 fL (80-100); MONOCYTES # (AUTO) 0.5 K/uL (0.1-1.0); NEUTROPHILS # (AUTO) 2.5 K/uL (1.8-7.7); NEUTROPHILS % (AUTO) 52.8 % (40.0-70.0); PLATELET COUNT (AUTO) 136 K/uL (150-450); RED BLOOD CELL COUNT(AUTO) 4.01 MIL/uL (4.50-5.90); RED CELL DISTRIBUTION WIDTH 13.6 % (11.5-14.5)
[2019-04-07 16:00] LABS: AMPHET/METH SCREEN,URINE NEGATIVE (NEGATIVE); BARBITURATE SCREEN, URINE NEGATIVE (NEGATIVE); BENZODIAZEPINES SCREEN,URINE NEGATIVE (NEGATIVE); CANNABINOID SCREEN,URINE POSITIVE (NEGATIVE); COCAINE SCREEN,URINE NEGATIVE (NEGATIVE); METHADONE SCREEN, URINE NEGATIVE (NEGATIVE); OPIATE SCREEN,URINE NEGATIVE (NEGATIVE)
[2019-04-07 16:02] LABS: PHENCYCLIDINE SCREEN,URINE NEGATIVE (NEGATIVE)
[2019-04-07 16:17] LABS: ANION GAP 6 mmol/L (8-16); CALCIUM, TOTAL 8.8 mg/dL (8.8-10.5); CARBON DIOXIDE 27 mmol/L (22-29); CHLORIDE 104 mmol/L (98-107); CREATININE 0.98 mg/dL (0.60-1.30); GLOMERULAR FILTR. RATE CALC > 60 mL/min (>60); GLUCOSE,RANDOM 97 mg/dL (70-110); POTASSIUM 4.1 mmol/L (3.5-5.1); SODIUM SERUM 137 mmol/L (136-145); UREA NITROGEN, BLOOD 17 mg/dL (7-18)
[2019-04-07 16:23] LABS: ALANINE AMINOTRANSFERASE 77 U/L (12-78); ALBUMIN 3.3 g/dL (3.4-5.0); ALKALINE PHOSPHATASE 117 U/L (46-116); ASPARTATE AMINOTRANSFERASE 48 U/L (15-37); BILIRUBIN,TOTAL 0.5 mg/dL (0.1-1.0); TOTAL PROTEIN, SERUM 6.8 g/dL (6.4-8.2)
[2019-04-07] MEDS ORDERED: ZOLPIDEM TARTRATE 10 MG TABLET PO PRN (16:45)
[2019-04-07 19:25] VITALS: BP 123/66
[2019-04-07] MEDS ORDERED: IBUPROFEN 600 MG TABLET PO PRN (20:30)
[2019-04-07] MEDS ORDERED: OMEPRAZOLE 20 MG CAPSULE PO PRN (20:30)
[2019-04-07] MEDS ORDERED: CloNIDine HCL 0.1 MG TABLET PO PRN (20:30)
[2019-04-07] MEDS ORDERED: ACETAMINOPHEN 325 MG TABLET PO PRN (20:30)
[2019-04-07] MEDS ORDERED: LOPERAMIDE HCL 2 MG CAPSULE PO PRN (20:30)
[2019-04-07] MEDS ORDERED: MAG HYDROX/AL HYDROX/SIMETH ES 30 ML SUSPENSION UDCUP PO PRN (20:30)
[2019-04-07] MEDS ORDERED: BENZOCAINE/MENTHOL LOZENGE MM PRN (20:30)
[2019-04-07] MEDS ORDERED: BACITRACIN 28.4 GM OINTMENT TP PRN (20:30)
[2019-04-07] MEDS ORDERED: DOCUSATE SODIUM 100 MG CAPSULE PO PRN (20:30)
[2019-04-07] MEDS ORDERED: PETROLATUM,WHITE 28 GM JELLY TP PRN (20:30)
[2019-04-07] MEDS ORDERED: ONDANSETRON HCL 4 MG TABLET PO PRN (20:30)
[2019-04-07] MEDS ORDERED: MAGNESIUM HYDROXIDE SUSPENSION 30 ML UDCUP PO PRN (20:30)
[2019-04-07] MEDS ORDERED: ALBUTEROL SULFATE HFA 90 MCG/PUFF 8 GM INHALER IH PRN (20:30)
[2019-04-08] MEDS: LORazepam 2 MG TABLET PO PRN ×2 (03:30→15:26)
[2019-04-08 03:35] VITALS: BP 127/66
[2019-04-08 05:52] LABS: HEMOGLOBIN A1C 5.3 % (4.5-6.2)
[2019-04-08 06:10] LABS: CHOL/HDL RATIO 2.9 (4.2-7.3); FREE T4 (FREE THYROXINE) 1.04 ng/dL (0.76-1.46); THYROID STIMULATING HORMONE 0.46 uIU/mL (0.36-3.74)
[2019-04-08 09:20] VITALS: BP 118/59
[2019-04-08] MEDS: TAMSULOSIN HCL 0.4 MG CAPSULE PO SCH (09:26)
[2019-04-08] MEDS: HALOPERIDOL 5 MG TABLET PO PRN (15:25)
[2019-04-08] MEDS: DULoxetine HCL 60 MG CAPSULE PO SCH (16:44)
[2019-04-08] MEDS: QUEtiapine FUMARATE 200 MG ER TABLET PO SCH (20:43)
[2019-04-08 21:06] VITALS: BP 92/61
[2019-04-09] MEDS: TAMSULOSIN HCL 0.4 MG CAPSULE PO SCH (10:22)
[2019-04-09] MEDS: DULoxetine HCL 60 MG CAPSULE PO SCH ×2 (10:22→17:23)
[2019-04-09 15:12] VITALS: BP 95/60
[2019-04-09 19:24] VITALS: BP 93/58
[2019-04-09] MEDS: QUEtiapine FUMARATE 200 MG ER TABLET PO SCH (20:17)
[2019-04-10 09:16] VITALS: BP 99/54
[2019-04-10] MEDS: DULoxetine HCL 60 MG CAPSULE PO SCH ×2 (09:44→16:30)
[2019-04-10] MEDS: TAMSULOSIN HCL 0.4 MG CAPSULE PO SCH (09:44)
[2019-04-10 17:12] VITALS: BP 95/59
[2019-04-10] MEDS: QUEtiapine FUMARATE 200 MG ER TABLET PO SCH (20:18)
[2019-04-11 01:10] VITALS: BP 94/63
[2019-04-11] MEDS: LORazepam 2 MG TABLET PO PRN (01:10)
[2019-04-11] MEDS: DULoxetine HCL 60 MG CAPSULE PO SCH ×2 (09:03→16:17)
[2019-04-11] MEDS: TAMSULOSIN HCL 0.4 MG CAPSULE PO SCH (09:03)
[2019-04-11 09:31] VITALS: BP 97/55
[2019-04-11] MEDS ORDERED: QUEtiapine FUMARATE 300 MG ER TABLET PO SCH (21:00)
[2019-04-11 21:06] VITALS: BP 95/62
[2019-04-12] VITALS: BP 96/59
[2019-04-12 09:59] VITALS: BP 117/79
[2019-04-12] MEDS: DULoxetine HCL 60 MG CAPSULE PO SCH ×2 (10:13→17:01)
[2019-04-12] MEDS: TAMSULOSIN HCL 0.4 MG CAPSULE PO SCH (10:13)
[2019-04-12] MEDS: ARIPiprazole 10 MG TABLET PO SCH (11:29)
[2019-04-13 05:52] LABS: BAND NEUTROPHILS % (MANUAL) 0 % (0-5)
[2019-04-13 05:56] LABS: HEMATOCRIT 40.2 % (41-53); HEMOGLOBIN 13.6 g/dL (13.5-17.5); MEAN CORPUSCULAR HEMOGLOBIN 33.3 pg (26.0-34.0); MEAN CORPUSCULAR HGB CONC 33.9 G/dL (31.0-37.0); MEAN CORPUSCULAR VOLUME 98 fL (80-100); PLATELET COUNT (AUTO) 122 K/uL (150-450); RED BLOOD CELL COUNT(AUTO) 4.09 MIL/uL (4.50-5.90); RED CELL DISTRIBUTION WIDTH 13.7 % (11.5-14.5)
[2019-04-13 06:14] LABS: ANION GAP 6 mmol/L (8-16); CALCIUM, TOTAL 9.1 mg/dL (8.8-10.5); CARBON DIOXIDE 28 mmol/L (22-29); CHLORIDE 101 mmol/L (98-107); CREATININE 1.04 mg/dL (0.60-1.30); GLOMERULAR FILTR. RATE CALC > 60 mL/min (>60); GLUCOSE,RANDOM 91 mg/dL (70-110); PHOSPHORUS 4.3 mg/dL (2.5-4.9); POTASSIUM 4.4 mmol/L (3.5-5.1); SODIUM SERUM 135 mmol/L (136-145); UREA NITROGEN, BLOOD 28 mg/dL (7-18)
[2019-04-13 06:20] LABS: EOSINOPHILS % (MANUAL) 11 % (1-6); LYMPHOCYTES % (MANUAL) 26 % (22-44); MONOCYTES % (MANUAL) 11 % (2-9); SEGMENTED NEUTROPHILS % 52 % (40-70)
[2019-04-13] MEDS: TAMSULOSIN HCL 0.4 MG CAPSULE PO SCH (08:28)
[2019-04-13] MEDS: ARIPiprazole 10 MG TABLET PO SCH (08:28)
[2019-04-13] MEDS: DULoxetine HCL 60 MG CAPSULE PO SCH ×2 (08:29→17:14)
[2019-04-13 09:20] VITALS: BP 120/69
[2019-04-13 16:28] VITALS: BP 119/74
[2019-04-13] MEDS: HALOPERIDOL 5 MG TABLET PO PRN (17:38)
[2019-04-13] MEDS: LORazepam 2 MG TABLET PO PRN (17:38)
[2019-04-14] MEDS ORDERED: ARIPiprazole 15 MG TABLET PO SCH (09:00)
[2019-04-14 09:38] VITALS: BP 101/63
[2019-04-14] MEDS: SODIUM CHLORIDE 1 GM TABLET PO SCH ×3 (09:50→16:31)
[2019-04-14] MEDS: DULoxetine HCL 60 MG CAPSULE PO SCH ×2 (09:50→16:31)
[2019-04-14] MEDS: TAMSULOSIN HCL 0.4 MG CAPSULE PO SCH (09:51)
[2019-04-14] MEDS: LORazepam 2 MG TABLET PO PRN (14:18)
[2019-04-14] MEDS: HALOPERIDOL 5 MG TABLET PO PRN (14:18)
[2019-04-14 18:03] VITALS: BP 99/63
[2019-04-15 08:57] VITALS: BP 109/74
[2019-04-15] MEDS ORDERED: ARIPiprazole 10 MG TABLET PO SCH (09:00)
[2019-04-15] MEDS: TAMSULOSIN HCL 0.4 MG CAPSULE PO SCH (09:44)
[2019-04-15] MEDS: DULoxetine HCL 60 MG CAPSULE PO SCH ×2 (09:44→16:22)
[2019-04-15] MEDS ORDERED: DULO60CA44 PO (16:04)
[2019-04-15] MEDS ORDERED: ARIP10TA8 PO (16:04)
[2019-04-15] MEDS ORDERED: ARIP662S IM (16:37)
[2019-04-15] MEDS ORDERED: ARIPiprazole LAUROXIL ER SUSPENSION 662 MG/2.4 ML SYRINGE IM SCH (17:00)
== END 2019-04-15 17:30 | disposition home or self-care (01) | DRG 750 ==
LOC: EMS 13:57 → 3EI 19:00
PROVIDERS: ADMIT Psychiatry & Neurology Psychiatry; ATTEND Psychiatry & Neurology Psychiatry
DX: F25.1 Schizoaffective disorder, depressive type (principal); E44.1 Mild protein-calorie malnutrition; R45.851 Suicidal ideations; B18.2 Chronic viral hepatitis C; E03.9 Hypothyroidism, unspecified; F12.90 Cannabis use, unspecified, uncomplicated; F15.90 Other stimulant use, unspecified, uncomplicated; F17.200 Nicotine dependence, unspecified, uncomplicated; R21 Rash and other nonspecific skin eruption; F31.9 Bipolar disorder, unspecified; F41.9 Anxiety disorder, unspecified; I10 Essential (primary) hypertension; J44.9 Chronic obstructive pulmonary disease, unspecified; K21.9 Gastro-esophageal reflux disease without esophagitis; N40.0 Benign prostatic hyperplasia without lower urinary tract symptoms; Z59.0 Homelessness; Z79.899 Other long term (current) drug therapy; Z91.19 Patient's noncompliance with other medical treatment and regimen; Z91.5 Personal history of self-harm; Z71.6 Tobacco abuse counseling; Z68.21 Body mass index [BMI] 21.0-21.9, adult
CPT/HCPCS: 83036; 83735; 84100; 84439; 84443; 85007; 87081; G0480; Q0162

== ENCOUNTER 2020-06-13 13:39 | Emergency (ER) | payer MEDICAID, OTHER ==
[~2020-06-13] VITALS: Ht 165.1 cm; Wt 59.1 kg
[~2020-06-13 13:39] MED LIST changes: +ARIP10TA8 PO; +ARIP662S IM; +DULO-8 PO; -DULO60CA44 PO; -QUET300T5 PO; +TAMS-13 PO; -TAMS0.4C32 PO
[2020-06-13] MEDS ORDERED: [UNRECOGNIZED DRUG - CODE] PO (14:05)
[2020-06-13] MEDS ORDERED: OLAN5TAB2 PO (14:05)
[2020-06-13] MEDS ORDERED: QUET300T2 PO (14:05)
[2020-06-13] MEDS ORDERED: MIRT30 PO (14:05)
[2020-06-13] MEDS ORDERED: QUET200T PO (14:05)
[2020-06-13 14:26] LABS: BASOPHILS % (AUTO) 0.9 % (0.0-2.0); EOSINOPHILS % (AUTO) 2.4 % (1.0-6.0); HEMATOCRIT 44.1 % (41-53); LYMPHOCYTES # (AUTO) 0.8 K/uL (1.0-4.8); LYMPHOCYTES % (AUTO) 20.9 % (22.0-44.0); MEAN CORPUSCULAR HEMOGLOBIN 33.2 pg (26.0-34.0); MEAN CORPUSCULAR HGB CONC 34.1 G/dL (31.0-37.0); MEAN CORPUSCULAR VOLUME 97 fL (80-100); MONOCYTES # (AUTO) 0.3 K/uL (0.1-1.0); MONOCYTES % (AUTO) 8.4 % (2.0-9.0); NEUTROPHILS # (AUTO) 2.4 K/uL (1.8-7.7); NEUTROPHILS % (AUTO) 67.4 % (40.0-70.0); PLATELET COUNT (AUTO) 120 K/uL (150-450); RED BLOOD CELL COUNT(AUTO) 4.53 MIL/uL (4.50-5.90); RED CELL DISTRIBUTION WIDTH 13.6 % (11.5-14.5)
[2020-06-13 14:45] LABS: ANION GAP 7 mmol/L (8-16); CALCIUM, TOTAL 9.4 mg/dL (8.8-10.5); CARBON DIOXIDE 30 mmol/L (22-29); CHLORIDE 103 mmol/L (98-107); CREATININE 1.05 mg/dL (0.60-1.30); GLOMERULAR FILTR. RATE CALC > 60 mL/min (>60); GLUCOSE,RANDOM 115 mg/dL (70-110); POTASSIUM 4.3 mmol/L (3.5-5.1); SODIUM SERUM 140 mmol/L (136-145); UREA NITROGEN, BLOOD 15 mg/dL (7-18)
[2020-06-13 14:58] LABS: ALANINE AMINOTRANSFERASE 274 U/L (12-78); ALBUMIN 3.6 g/dL (3.4-5.0); ALKALINE PHOSPHATASE 132 U/L (46-116); ASPARTATE AMINOTRANSFERASE 150 U/L (15-37); BILIRUBIN,TOTAL 0.5 mg/dL (0.1-1.0); TOTAL PROTEIN, SERUM 6.9 g/dL (6.4-8.2)
[2020-06-13 15:09] LABS: AMPHET/METH SCREEN,URINE NEGATIVE (NEGATIVE); BARBITURATE SCREEN, URINE NEGATIVE (NEGATIVE); BENZODIAZEPINES SCREEN,URINE NEGATIVE (NEGATIVE); CANNABINOID SCREEN,URINE POSITIVE (NEGATIVE); COCAINE SCREEN,URINE NEGATIVE (NEGATIVE); METHADONE SCREEN, URINE NEGATIVE (NEGATIVE); OPIATE SCREEN,URINE NEGATIVE (NEGATIVE)
[2020-06-13 15:14] LABS: PHENCYCLIDINE SCREEN,URINE NEGATIVE (NEGATIVE)
[2020-06-13 17:00] LABS: PLATELET MORPHOLOGY COMMENT LARGE PLTS PRESENT
[2020-06-13 19:20] VITALS: BP 116/71
== END 2020-06-13 19:40 | disposition home or self-care (01) ==
LOC: EMS 13:48
DX: R45.851 Suicidal ideations (principal); F31.9 Bipolar disorder, unspecified; E03.9 Hypothyroidism, unspecified; F20.9 Schizophrenia, unspecified
CPT/HCPCS: 36415; 80053; 80307; 85025; 99285; G0480

== ENCOUNTER 2020-08-11 01:49 | Inpatient (IN) | payer MEDICAID ==
[~2020-08-11] VITALS: Ht 165.1 cm; Wt 62.9 kg
[~2020-08-11 01:49] MED LIST changes: -ARIP10TA8 PO; -ARIP662S IM; +MIRT30 PO; +OLAN5TAB2 PO; +QUET200T PO; +QUET300T2 PO; +[UNRECOGNIZED DRUG - CODE] PO
[2020-08-11] MEDS ORDERED: TRAZ150T79 PO (03:06)
[2020-08-11 03:13] LABS: BASOPHILS % (AUTO) 0.9 % (0.0-2.0); EOSINOPHILS % (AUTO) 2.8 % (1.0-6.0); HEMATOCRIT 50.4 % (41-53); HEMOGLOBIN 17.3 g/dL (13.5-17.5); LYMPHOCYTES # (AUTO) 1.2 K/uL (1.0-4.8); LYMPHOCYTES % (AUTO) 23.2 % (22.0-44.0); MEAN CORPUSCULAR HEMOGLOBIN 33.8 pg (26.0-34.0); MEAN CORPUSCULAR HGB CONC 34.4 G/dL (31.0-37.0); MEAN CORPUSCULAR VOLUME 98 fL (80-100); MONOCYTES # (AUTO) 0.5 K/uL (0.1-1.0); MONOCYTES % (AUTO) 9.5 % (2.0-9.0); NEUTROPHILS # (AUTO) 3.2 K/uL (1.8-7.7); NEUTROPHILS % (AUTO) 63.6 % (40.0-70.0); PLATELET COUNT (AUTO) 132 K/uL (150-450); RED BLOOD CELL COUNT(AUTO) 5.13 MIL/uL (4.50-5.90); RED CELL DISTRIBUTION WIDTH 13.8 % (11.5-14.5)
[2020-08-11] MEDS ORDERED: QUEtiapine FUMARATE 100 MG TABLET PO ONE (03:15)
[2020-08-11] MEDS ORDERED: LORazepam 1 MG TABLET PO ONE (03:15)
[2020-08-11 03:17] LABS: ANION GAP 5 mmol/L (8-16); CALCIUM, TOTAL 9.6 mg/dL (8.8-10.5); CARBON DIOXIDE 30 mmol/L (22-29); CHLORIDE 101 mmol/L (98-107); CREATININE 1.17 mg/dL (0.60-1.30); GLOMERULAR FILTR. RATE CALC > 60 mL/min (>60); GLUCOSE,RANDOM 131 mg/dL (70-110); POTASSIUM 4.2 mmol/L (3.5-5.1); SODIUM SERUM 136 mmol/L (136-145); UREA NITROGEN, BLOOD 17 mg/dL (7-18)
[2020-08-11 03:23] LABS: ALANINE AMINOTRANSFERASE 255 U/L (12-78); ALBUMIN 3.9 g/dL (3.4-5.0); ALKALINE PHOSPHATASE 148 U/L (46-116); ASPARTATE AMINOTRANSFERASE 164 U/L (15-37); BILIRUBIN,TOTAL 0.5 mg/dL (0.1-1.0); TOTAL PROTEIN, SERUM 8.4 g/dL (6.4-8.2)
[2020-08-11 03:29] LABS: COVID AG,FIA SOURCE NASOPHARYNGEAL
[2020-08-11] MEDS ORDERED: HALOPERIDOL 5 MG TABLET PO PRN (04:15)
[2020-08-11] MEDS ORDERED: ZOLPIDEM TARTRATE 10 MG TABLET PO PRN (04:15)
[2020-08-11 05:18] VITALS: BP 107/75
[2020-08-11] MEDS ORDERED: NICOTINE 14 MG/24 HOUR PATCH TD PRN (07:00)
[2020-08-11] MEDS ORDERED: GuaiFENesin/D-METHORPHAN [SUGAR-FREE] 200-20MG/10 ML SYRUP UDCUP PO PRN (07:00)
[2020-08-11] MEDS ORDERED: MAGNESIUM HYDROXIDE SUSPENSION 30 ML UDCUP PO PRN (07:00)
[2020-08-11] MEDS ORDERED: INFLUENZA VIRUS VACCINE QVS 2020-21 (6MO+)/PF 60 MCG/0.5 ML SYRINGE IM ONE (07:00)
[2020-08-11] MEDS ORDERED: LOPERAMIDE HCL 2 MG CAPSULE PO PRN (07:00)
[2020-08-11] MEDS ORDERED: ACETAMINOPHEN 325 MG TABLET PO PRN (07:00)
[2020-08-11] MEDS ORDERED: PETROLATUM,WHITE 28 GM JELLY TP PRN (07:00)
[2020-08-11] MEDS ORDERED: ONDANSETRON HCL 4 MG TABLET PO PRN (07:00)
[2020-08-11] MEDS ORDERED: IBUPROFEN 400 MG TABLET PO PRN (07:00)
[2020-08-11] MEDS ORDERED: ALBUTEROL SULFATE HFA 90 MCG/PUFF 8 GM INHALER IH PRN (07:00)
[2020-08-11] MEDS ORDERED: MAG HYDROX/AL HYDROX/SIMETH ES 30 ML SUSPENSION UDCUP PO PRN (07:00)
[2020-08-11] MEDS ORDERED: DOCUSATE SODIUM 100 MG CAPSULE PO PRN (07:00)
[2020-08-11] MEDS ORDERED: CloNIDine HCL 0.1 MG TABLET PO PRN (07:00)
[2020-08-11 08:27] VITALS: BP 121/72
[2020-08-11] MEDS: TAMSULOSIN HCL 0.4 MG CAPSULE PO SCH (09:00)
[2020-08-11 16:00] VITALS: BP 113/74
[2020-08-11] MEDS ORDERED: DIPH25 PO (16:45)
[2020-08-11] MEDS: DULoxetine HCL 60 MG CAPSULE PO SCH (16:52)
[2020-08-11] MEDS: TraZODone HCL 150 MG TABLET PO SCH (20:34)
[2020-08-11] MEDS: QUEtiapine FUMARATE 25 MG TABLET PO SCH (20:34)
[2020-08-12] MEDS: QUEtiapine FUMARATE 200 MG TABLET PO SCH (08:05)
[2020-08-12] MEDS: TAMSULOSIN HCL 0.4 MG CAPSULE PO SCH (08:05)
[2020-08-12] MEDS: OLANZapine 5 MG TABLET PO SCH (08:05)
[2020-08-12] MEDS: DULoxetine HCL 60 MG CAPSULE PO SCH ×2 (08:05→16:33)
[2020-08-12 10:02] VITALS: BP 107/52
[2020-08-12 10:05] LABS: CHOL/HDL RATIO 4.1 (4.2-7.3)
[2020-08-12 16:00] VITALS: BP 113/69
[2020-08-12] MEDS: TraZODone HCL 150 MG TABLET PO SCH (20:14)
[2020-08-12] MEDS: LORazepam 2 MG TABLET PO PRN (20:14)
[2020-08-12] MEDS: QUEtiapine FUMARATE 25 MG TABLET PO SCH (20:14)
[2020-08-13 08:00] VITALS: BP 109/65
[2020-08-13] MEDS: DULoxetine HCL 60 MG CAPSULE PO SCH ×2 (08:36→16:01)
[2020-08-13] MEDS: QUEtiapine FUMARATE 200 MG TABLET PO SCH (08:37)
[2020-08-13] MEDS: OLANZapine 5 MG TABLET PO SCH (08:37)
[2020-08-13] MEDS: TAMSULOSIN HCL 0.4 MG CAPSULE PO SCH (08:37)
[2020-08-13 16:01] VITALS: BP 115/81
[2020-08-13] MEDS: TraZODone HCL 150 MG TABLET PO SCH (20:19)
[2020-08-13] MEDS: QUEtiapine FUMARATE 25 MG TABLET PO SCH (20:19)
[2020-08-14 08:54] VITALS: BP 102/66
[2020-08-14] MEDS: DULoxetine HCL 60 MG CAPSULE PO SCH ×2 (09:19→16:45)
[2020-08-14] MEDS: QUEtiapine FUMARATE 200 MG TABLET PO SCH (09:20)
[2020-08-14] MEDS: OLANZapine 5 MG TABLET PO SCH (09:20)
[2020-08-14] MEDS: TAMSULOSIN HCL 0.4 MG CAPSULE PO SCH (09:20)
[2020-08-14 17:12] VITALS: BP 103/62
[2020-08-14] MEDS: TraZODone HCL 150 MG TABLET PO SCH (20:33)
[2020-08-14] MEDS: QUEtiapine FUMARATE 25 MG TABLET PO SCH (20:33)
[2020-08-15 00:37] VITALS: BP 109/69
[2020-08-15] MEDS: LORazepam 2 MG TABLET PO PRN (00:37)
[2020-08-15 09:33] VITALS: BP 94/61
[2020-08-15] MEDS: QUEtiapine FUMARATE 200 MG TABLET PO SCH (10:11)
[2020-08-15] MEDS: DULoxetine HCL 60 MG CAPSULE PO SCH ×2 (10:13→16:23)
[2020-08-15] MEDS: TAMSULOSIN HCL 0.4 MG CAPSULE PO SCH (10:13)
[2020-08-15 16:00] VITALS: BP 126/66
[2020-08-15] MEDS: QUEtiapine FUMARATE 25 MG TABLET PO SCH (20:45)
[2020-08-15] MEDS: TraZODone HCL 150 MG TABLET PO SCH (20:45)
[2020-08-16 09:56] VITALS: BP 114/67
[2020-08-16] MEDS: DULoxetine HCL 60 MG CAPSULE PO SCH (10:46)
[2020-08-16] MEDS: TAMSULOSIN HCL 0.4 MG CAPSULE PO SCH (10:46)
[2020-08-16] MEDS: QUEtiapine FUMARATE 200 MG TABLET PO SCH (10:47)
== END 2020-08-16 14:30 | disposition home or self-care (01) | DRG 750 ==
LOC: EMS 01:51 → 3EI 04:02
PROVIDERS: ADMIT Psychiatry & Neurology Child & Adolescent Psychiatry; ATTEND Psychiatry & Neurology Child & Adolescent Psychiatry
DX: F25.1 Schizoaffective disorder, depressive type (principal); R45.851 Suicidal ideations; F41.9 Anxiety disorder, unspecified; I10 Essential (primary) hypertension; J44.9 Chronic obstructive pulmonary disease, unspecified; K21.9 Gastro-esophageal reflux disease without esophagitis; M19.90 Unspecified osteoarthritis, unspecified site; E78.5 Hyperlipidemia, unspecified; E03.9 Hypothyroidism, unspecified; F10.10 Alcohol abuse, uncomplicated; D69.6 Thrombocytopenia, unspecified; N40.0 Benign prostatic hyperplasia without lower urinary tract symptoms; Z79.899 Other long term (current) drug therapy; Z59.0 Homelessness; Z20.828 Contact with and (suspected) exposure to other viral communicable diseases; Z23 Encounter for immunization
CPT/HCPCS: 87426; 90686; G0480

== ENCOUNTER 2020-08-28 16:16 | Inpatient (IN) | payer MEDICAID ==
[~2020-08-28] VITALS: Ht 165.1 cm; Wt 59.5 kg
[~2020-08-28 16:16] MED LIST changes: -MIRT30 PO; -OLAN5TAB2 PO; +TRAZ150T79 PO; -[UNRECOGNIZED DRUG - CODE] PO
[2020-08-28 21:16] LABS: AMPHET/METH SCREEN,URINE NEGATIVE (NEGATIVE); BARBITURATE SCREEN, URINE NEGATIVE (NEGATIVE); BENZODIAZEPINES SCREEN,URINE NEGATIVE (NEGATIVE); CANNABINOID SCREEN,URINE POSITIVE (NEGATIVE); COCAINE SCREEN,URINE NEGATIVE (NEGATIVE); METHADONE SCREEN, URINE NEGATIVE (NEGATIVE); OPIATE SCREEN,URINE NEGATIVE (NEGATIVE)
[2020-08-28 21:21] LABS: APPEARANCE,URINE CLEAR (CLEAR); BILIRUBIN,URINE NEGATIVE (NEGATIVE); GLUCOSE, URINE (UA) NEGATIVE (NEGATIVE); KETONES,URINE NEGATIVE (NEGATIVE); LEUKOCYTE ESTERASE ,URINE NEGATIVE (NEGATIVE); NITRATE,URINE NEGATIVE (NEGATIVE); OCCULT BLOOD,URINE NEGATIVE (NEGATIVE); PROTEIN,URINE TRACE (NEGATIVE)
[2020-08-28 21:24] LABS: PHENCYCLIDINE SCREEN,URINE NEGATIVE (NEGATIVE)
[2020-08-28 21:38] LABS: BASOPHILS % (AUTO) 0.2 % (0.0-2.0); EOSINOPHILS % (AUTO) 1.4 % (1.0-6.0); HEMOGLOBIN 14.5 g/dL (13.5-17.5); LYMPHOCYTES # (AUTO) 0.4 K/uL (1.0-4.8); LYMPHOCYTES % (AUTO) 2.1 % (22.0-44.0); MEAN CORPUSCULAR HEMOGLOBIN 32.8 pg (26.0-34.0); MEAN CORPUSCULAR HGB CONC 34.6 G/dL (31.0-37.0); MEAN CORPUSCULAR VOLUME 95 fL (80-100); MONOCYTES # (AUTO) 0.9 K/uL (0.1-1.0); MONOCYTES % (AUTO) 5.3 % (2.0-9.0); NEUTROPHILS # (AUTO) 16.3 K/uL (1.8-7.7); PLATELET COUNT (AUTO) 27 K/uL (150-450); RED BLOOD CELL COUNT(AUTO) 4.43 MIL/uL (4.50-5.90); RED CELL DISTRIBUTION WIDTH 13.9 % (11.5-14.5)
[2020-08-28 21:57] LABS: ANION GAP 9 mmol/L (8-16); CALCIUM, TOTAL 8.4 mg/dL (8.8-10.5); CARBON DIOXIDE 25 mmol/L (22-29); CHLORIDE 94 mmol/L (98-107); CREATININE 1.17 mg/dL (0.60-1.30); GLOMERULAR FILTR. RATE CALC > 60 mL/min (>60); GLUCOSE,RANDOM 128 mg/dL (70-110); POTASSIUM 3.2 mmol/L (3.5-5.1); SODIUM SERUM 128 mmol/L (136-145); UREA NITROGEN, BLOOD 15 mg/dL (7-18)
[2020-08-28 22:03] LABS: ALANINE AMINOTRANSFERASE 33 U/L (12-78); ALBUMIN 2.3 g/dL (3.4-5.0); ALKALINE PHOSPHATASE 188 U/L (46-116); ASPARTATE AMINOTRANSFERASE 38 U/L (15-37); BILIRUBIN,TOTAL 2.7 mg/dL (0.1-1.0); TOTAL PROTEIN, SERUM 6.4 g/dL (6.4-8.2)
[2020-08-28] MEDS ORDERED: IBUPROFEN 600 MG TABLET PO ONE (23:30)
[2020-08-28] MEDS ORDERED: SODIUM CHLORIDE 0.9% 1,000 ML IV ONE (23:30)
[2020-08-28 23:38] LABS: COVID AG,FIA SOURCE NASAL SWAB
[2020-08-29] VITALS (27 sets, daily range): BP systolic 63–108; BP diastolic 37–72
[2020-08-29] MEDS ORDERED: ONDANSETRON HCL 4 MG/2 ML VIAL IVP PRN (01:30)
[2020-08-29] MEDS ORDERED: IOVERSOL 350 MG/ML 100 ML VIAL ONE (02:11)
[2020-08-29] MEDS ORDERED: SODIUM CHLORIDE 0.9% 100 ML ONE (02:12)
[2020-08-29] MEDS ORDERED: TAMSULOSIN HCL 0.4 MG CAPSULE PO SCH (09:00)
[2020-08-29] MEDS: POTASSIUM CHLORIDE 20 MEQ ER TABLET PO PRN (13:21)
[2020-08-29] MEDS: HEPARIN SODIUM,PORCINE 5,000 UNITS/ML VIAL SQ SCH ×2 (13:27→16:32)
[2020-08-29] MEDS: DULoxetine HCL 60 MG CAPSULE PO SCH ×2 (13:27→23:00)
[2020-08-29] MEDS: AMPICILLIN SODIUM/SULBACTAM NA 1.5 GM in SODIUM CHLORIDE 0.9% 50 ML IV SCH ×2 (13:29→16:32)
[2020-08-29] MEDS: QUEtiapine FUMARATE 200 MG TABLET PO SCH (13:30)
[2020-08-29] MEDS: SODIUM CHLORIDE 0.45% 1,000 ML IV SCH ×2 (13:31→23:54)
[2020-08-29] MEDS ORDERED: SODIUM CHLORIDE 0.9% 1,000 ML ONE (20:36)
[2020-08-29] MEDS ORDERED: QUET25TA PO (20:41)
[2020-08-29] MEDS ORDERED: SODIUM CHLORIDE 0.9% 1,000 ML IV ONE (21:00)
[2020-08-29 21:01] LABS: GLUCOMETER DEV NAME(LOC) 6N.1; GLUCOSE,POINT OF CARE 200 MG/DL (70-110)
[2020-08-29] MEDS ORDERED: SODIUM CHLORIDE 0.9% 500 ML IV ONE ×2 (21:34→21:45)
[2020-08-29] MEDS ORDERED: VANCOMYCIN HCL 1.25 GM in DEXTROSE 5%-WATER 250 ML IV ONE (22:15)
[2020-08-29 22:29] LABS: HEMATOCRIT 32.5 % (41-53); MEAN CORPUSCULAR HGB CONC 34.3 G/dL (31.0-37.0)
[2020-08-29 22:35] LABS: BASOPHILS % (AUTO) 0.2 % (0.0-2.0); EOSINOPHILS % (AUTO) 0.1 % (1.0-6.0); HEMOGLOBIN 11.1 g/dL (13.5-17.5); LYMPHOCYTES # (AUTO) 0.2 K/uL (1.0-4.8); LYMPHOCYTES % (AUTO) 1.2 % (22.0-44.0); MEAN CORPUSCULAR HEMOGLOBIN 33.2 pg (26.0-34.0); MEAN CORPUSCULAR VOLUME 97 fL (80-100); MONOCYTES # (AUTO) 0.5 K/uL (0.1-1.0); MONOCYTES % (AUTO) 3.5 % (2.0-9.0); NEUTROPHILS # (AUTO) 14.6 K/uL (1.8-7.7); RED BLOOD CELL COUNT(AUTO) 3.36 MIL/uL (4.50-5.90); RED CELL DISTRIBUTION WIDTH 13.8 % (11.5-14.5)
[2020-08-29 22:44] LABS: LACTIC ACID 4.1 mmol/L (0.4-2.0)
[2020-08-29] MEDS: QUEtiapine FUMARATE 25 MG TABLET PO SCH (23:00)
[2020-08-29] MEDS: TraZODone HCL 150 MG TABLET PO SCH (23:00)
[2020-08-29 23:03] LABS: PLATELET COUNT (AUTO) 14 K/uL (150-450)
[2020-08-29 23:12] LABS: ANION GAP 9 mmol/L (8-16); CALCIUM, TOTAL 7.4 mg/dL (8.8-10.5); CARBON DIOXIDE 20 mmol/L (22-29); CHLORIDE 100 mmol/L (98-107); GLOMERULAR FILTR. RATE CALC 48 mL/min (>60); GLUCOSE,RANDOM 174 mg/dL (70-110); POTASSIUM 3.1 mmol/L (3.5-5.1); SODIUM SERUM 129 mmol/L (136-145); UREA NITROGEN, BLOOD 22 mg/dL (7-18)
[2020-08-29] MEDS: NOREPINEPHRINE 4 MG/D5%-WATER 250 ML IV PRN (23:15)
[2020-08-29 23:18] LABS: ALANINE AMINOTRANSFERASE 16 U/L (12-78); ALBUMIN 1.4 g/dL (3.4-5.0); ALKALINE PHOSPHATASE 135 U/L (46-116); ASPARTATE AMINOTRANSFERASE 26 U/L (15-37); BILIRUBIN,TOTAL 2.2 mg/dL (0.1-1.0); TOTAL PROTEIN, SERUM 4.3 g/dL (6.4-8.2)
[2020-08-29] MEDS: PIPERACILLIN/TAZO 3.375 GM/D5W 50 ML IV SCH (23:54)
[2020-08-30] VITALS (32 sets, daily range): BP systolic 77–130; BP diastolic 45–90
[2020-08-30 00:14] LABS: GLUCOSE,POINT OF CARE 140 MG/DL (70-110)
[2020-08-30] MEDS ORDERED: SODIUM CHLORIDE 0.9% 500 ML IV ONE (00:15)
[2020-08-30] MEDS ORDERED: DEXTROSE 50%-WATER 25 GM/50 ML SYRINGE IVP PRN (01:30)
[2020-08-30] MEDS ORDERED: INSULIN LISPRO 100 UNITS/ML SQ PRN (01:30)
[2020-08-30] MEDS: POTASSIUM CHL 10 MEQ/WATER 50 ML IV PRN ×3 (03:05→05:24)
[2020-08-30 04:02] LABS: BASOPHILS % (AUTO) 0.5 % (0.0-2.0); EOSINOPHILS % (AUTO) 0.2 % (1.0-6.0); HEMATOCRIT 35.1 % (41-53); LYMPHOCYTES # (AUTO) 0.5 K/uL (1.0-4.8); LYMPHOCYTES % (AUTO) 1.9 % (22.0-44.0); MEAN CORPUSCULAR HEMOGLOBIN 32.9 pg (26.0-34.0); MEAN CORPUSCULAR HGB CONC 34.3 G/dL (31.0-37.0); MEAN CORPUSCULAR VOLUME 96 fL (80-100); MONOCYTES # (AUTO) 0.9 K/uL (0.1-1.0); MONOCYTES % (AUTO) 3.5 % (2.0-9.0); NEUTROPHILS # (AUTO) 22.8 K/uL (1.8-7.7); RED BLOOD CELL COUNT(AUTO) 3.66 MIL/uL (4.50-5.90); RED CELL DISTRIBUTION WIDTH 13.6 % (11.5-14.5)
[2020-08-30] MEDS: PIPERACILLIN/TAZO 3.375 GM/D5W 50 ML IV SCH ×4 (04:13→23:41)
[2020-08-30 04:18] LABS: ALANINE AMINOTRANSFERASE 21 U/L (12-78); ALBUMIN 1.5 g/dL (3.4-5.0); ALKALINE PHOSPHATASE 141 U/L (46-116); ANION GAP 6 mmol/L (8-16); ASPARTATE AMINOTRANSFERASE 24 U/L (15-37); BILIRUBIN,TOTAL 2.8 mg/dL (0.1-1.0); CALCIUM, TOTAL 7.3 mg/dL (8.8-10.5); CARBON DIOXIDE 24 mmol/L (22-29); CHLORIDE 101 mmol/L (98-107); CREATININE 1.21 mg/dL (0.60-1.30); GLOMERULAR FILTR. RATE CALC > 60 mL/min (>60); GLUCOSE,RANDOM 201 mg/dL (70-110); POTASSIUM 3.6 mmol/L (3.5-5.1); SODIUM SERUM 131 mmol/L (136-145); UREA NITROGEN, BLOOD 18 mg/dL (7-18)
[2020-08-30 04:23] LABS: NEUTROPHILS % (AUTO) 93.9 % (40.0-70.0); PLATELET COUNT (AUTO) 17 K/uL (150-450)
[2020-08-30] MEDS: PHENYLEPHRINE 200 MG/D5%-WATER 250 ML IV PRN (06:30)
[2020-08-30] MEDS: NOREPINEPHRINE 4 MG/D5%-WATER 250 ML IV PRN (06:49)
[2020-08-30 07:49] LABS: GLUCOSE,POINT OF CARE 185 MG/DL (70-110)
[2020-08-30] MEDS ORDERED: VANCOMYCIN HCL 750 MG in DEXTROSE 5%-WATER 250 ML IV SCH (08:00)
[2020-08-30] MEDS: SODIUM CHLORIDE 0.45% 1,000 ML IV SCH (08:55)
[2020-08-30] MEDS: DULoxetine HCL 60 MG CAPSULE PO SCH ×2 (09:00→23:39)
[2020-08-30] MEDS: QUEtiapine FUMARATE 200 MG TABLET PO SCH (09:00)
[2020-08-30] MEDS ORDERED: LIDOCAINE 1% 10 ML VIAL ONE ×2 (09:20→11:29)
[2020-08-30] MEDS ORDERED: SODIUM CHLORIDE 0.9% 1,000 ML IV ONE (10:15)
[2020-08-30 10:32] LABS: BASOPHILS % (AUTO) 0.1 % (0.0-2.0); EOSINOPHILS % (AUTO) 0.1 % (1.0-6.0); HEMATOCRIT 36.3 % (41-53); HEMOGLOBIN 12.4 g/dL (13.5-17.5); LYMPHOCYTES # (AUTO) 0.8 K/uL (1.0-4.8); LYMPHOCYTES % (AUTO) 3.5 % (22.0-44.0); MEAN CORPUSCULAR HEMOGLOBIN 32.7 pg (26.0-34.0); MEAN CORPUSCULAR HGB CONC 34.3 G/dL (31.0-37.0); MEAN CORPUSCULAR VOLUME 95 fL (80-100); MONOCYTES # (AUTO) 1.2 K/uL (0.1-1.0); MONOCYTES % (AUTO) 5.4 % (2.0-9.0); NEUTROPHILS # (AUTO) 20.6 K/uL (1.8-7.7); RED BLOOD CELL COUNT(AUTO) 3.81 MIL/uL (4.50-5.90); RED CELL DISTRIBUTION WIDTH 14.3 % (11.5-14.5)
[2020-08-30 10:45] LABS: ANION GAP 6 mmol/L (8-16); CALCIUM, TOTAL 7.7 mg/dL (8.8-10.5); CARBON DIOXIDE 25 mmol/L (22-29); CHLORIDE 100 mmol/L (98-107); CREATININE 1.14 mg/dL (0.60-1.30); GLOMERULAR FILTR. RATE CALC > 60 mL/min (>60); GLUCOSE,RANDOM 183 mg/dL (70-110); POTASSIUM 3.5 mmol/L (3.5-5.1); SODIUM SERUM 131 mmol/L (136-145); UREA NITROGEN, BLOOD 17 mg/dL (7-18)
[2020-08-30 10:51] LABS: ALANINE AMINOTRANSFERASE 20 U/L (12-78); ALBUMIN 1.6 g/dL (3.4-5.0); ALKALINE PHOSPHATASE 145 U/L (46-116); ASPARTATE AMINOTRANSFERASE 20 U/L (15-37); BILIRUBIN,TOTAL 2.4 mg/dL (0.1-1.0); TOTAL PROTEIN, SERUM 5.3 g/dL (6.4-8.2)
[2020-08-30 10:56] LABS: NEUTROPHILS % (AUTO) 90.9 % (40.0-70.0); PLATELET COUNT (AUTO) 19 K/uL (150-450)
[2020-08-30] MEDS ORDERED: MIDAZOLAM HCL 2 MG/2 ML VIAL ONE (13:57)
[2020-08-30] MEDS ORDERED: FentaNYL CITRATE PF 100 MCG/2 ML VIAL ONE (13:58)
[2020-08-30] MEDS: QUEtiapine FUMARATE 25 MG TABLET PO SCH (23:39)
[2020-08-30] MEDS: TraZODone HCL 150 MG TABLET PO SCH (23:39)
[2020-08-31] VITALS (20 sets, daily range): BP systolic 92–176; BP diastolic 44–94
[2020-08-31] MEDS ORDERED: MORPHINE SULFATE 2 MG/ML SYRINGE IVP PRN (03:15)
[2020-08-31] MEDS: PIPERACILLIN/TAZO 3.375 GM/D5W 50 ML IV SCH ×4 (04:13→21:27)
[2020-08-31 07:13] LABS: BASOPHILS % (AUTO) 0.2 % (0.0-2.0); EOSINOPHILS % (AUTO) 1.3 % (1.0-6.0); HEMATOCRIT 36.8 % (41-53); HEMOGLOBIN 12.6 g/dL (13.5-17.5); LYMPHOCYTES % (AUTO) 7.6 % (22.0-44.0); MEAN CORPUSCULAR HEMOGLOBIN 32.9 pg (26.0-34.0); MEAN CORPUSCULAR HGB CONC 34.4 G/dL (31.0-37.0); MEAN CORPUSCULAR VOLUME 96 fL (80-100); MONOCYTES # (AUTO) 0.7 K/uL (0.1-1.0); MONOCYTES % (AUTO) 5.5 % (2.0-9.0); NEUTROPHILS # (AUTO) 11.6 K/uL (1.8-7.7); PLATELET COUNT (AUTO) 29 K/uL (150-450); RED BLOOD CELL COUNT(AUTO) 3.85 MIL/uL (4.50-5.90); RED CELL DISTRIBUTION WIDTH 14.2 % (11.5-14.5)
[2020-08-31 07:23] LABS: NEUTROPHILS % (AUTO) 85.4 % (40.0-70.0)
[2020-08-31 07:30] LABS: ALANINE AMINOTRANSFERASE 17 U/L (12-78); ALBUMIN 1.6 g/dL (3.4-5.0); ALKALINE PHOSPHATASE 126 U/L (46-116); ANION GAP 7 mmol/L (8-16); ASPARTATE AMINOTRANSFERASE 23 U/L (15-37); BILIRUBIN,TOTAL 2.4 mg/dL (0.1-1.0); C-REACTIVE PROTEIN QUANT 7.28 mg/dL (0.00-0.30); CALCIUM, TOTAL 7.7 mg/dL (8.8-10.5); CARBON DIOXIDE 23 mmol/L (22-29); CHLORIDE 104 mmol/L (98-107); CREATININE 0.91 mg/dL (0.60-1.30); GLOMERULAR FILTR. RATE CALC > 60 mL/min (>60); GLUCOSE,RANDOM 123 mg/dL (70-110); POTASSIUM 3.2 mmol/L (3.5-5.1); SODIUM SERUM 134 mmol/L (136-145); TOTAL PROTEIN, SERUM 5.5 g/dL (6.4-8.2); UREA NITROGEN, BLOOD 11 mg/dL (7-18)
[2020-08-31 07:36] LABS: GLUCOSE,POINT OF CARE 117 MG/DL (70-110)
[2020-08-31] MEDS: DULoxetine HCL 60 MG CAPSULE PO SCH ×2 (08:33→20:12)
[2020-08-31] MEDS: QUEtiapine FUMARATE 200 MG TABLET PO SCH (08:33)
[2020-08-31] MEDS: NOREPINEPHRINE 4 MG/D5%-WATER 250 ML IV PRN (10:48)
[2020-08-31] MEDS: PHENYLEPHRINE 200 MG/D5%-WATER 250 ML IV PRN (10:53)
[2020-08-31] MEDS: SODIUM CHLORIDE 0.45% 1,000 ML IV SCH ×2 (12:26)
[2020-08-31 17:36] LABS: GLUCOSE,POINT OF CARE 100 MG/DL (70-110)
[2020-08-31] MEDS ORDERED: HALOPERIDOL LACTATE 5 MG/ML VIAL IM PRN (20:00)
[2020-08-31] MEDS: QUEtiapine FUMARATE 25 MG TABLET PO SCH (20:12)
[2020-08-31] MEDS: TraZODone HCL 150 MG TABLET PO SCH (20:12)
[2020-08-31] MEDS ORDERED: LORazepam 2 MG/ML VIAL IVP ONE (20:45)
[2020-09-01] VITALS (12 sets, daily range): BP systolic 87–180; BP diastolic 54–90
[2020-09-01] MEDS: SODIUM CHLORIDE 0.45% 1,000 ML IV SCH ×3 (03:00→21:47)
[2020-09-01] MEDS: ACETAMINOPHEN 325 MG TABLET PO PRN (03:30)
[2020-09-01] MEDS: PIPERACILLIN/TAZO 3.375 GM/D5W 50 ML IV SCH ×4 (04:22→21:50)
[2020-09-01 08:07] LABS: BASOPHILS % (AUTO) 0.5 % (0.0-2.0); EOSINOPHILS % (AUTO) 1.9 % (1.0-6.0); HEMOGLOBIN 12.2 g/dL (13.5-17.5); MEAN CORPUSCULAR HEMOGLOBIN 32.9 pg (26.0-34.0); MEAN CORPUSCULAR HGB CONC 34.9 G/dL (31.0-37.0); MEAN CORPUSCULAR VOLUME 94 fL (80-100); MONOCYTES # (AUTO) 0.5 K/uL (0.1-1.0); NEUTROPHILS # (AUTO) 7.5 K/uL (1.8-7.7); NEUTROPHILS % (AUTO) 81.6 % (40.0-70.0); PLATELET COUNT (AUTO) 37 K/uL (150-450); RED BLOOD CELL COUNT(AUTO) 3.72 MIL/uL (4.50-5.90); RED CELL DISTRIBUTION WIDTH 14.5 % (11.5-14.5)
[2020-09-01 08:39] LABS: ALANINE AMINOTRANSFERASE 21 U/L (12-78); ALBUMIN 1.7 g/dL (3.4-5.0); ALKALINE PHOSPHATASE 111 U/L (46-116); ANION GAP 6 mmol/L (8-16); ASPARTATE AMINOTRANSFERASE 27 U/L (15-37); CALCIUM, TOTAL 7.8 mg/dL (8.8-10.5); CARBON DIOXIDE 27 mmol/L (22-29); CHLORIDE 103 mmol/L (98-107); GLOMERULAR FILTR. RATE CALC > 60 mL/min (>60); GLUCOSE,RANDOM 92 mg/dL (70-110); POTASSIUM 3.4 mmol/L (3.5-5.1); SODIUM SERUM 136 mmol/L (136-145); TOTAL PROTEIN, SERUM 5.8 g/dL (6.4-8.2); UREA NITROGEN, BLOOD 10 mg/dL (7-18)
[2020-09-01] MEDS: QUEtiapine FUMARATE 200 MG TABLET PO SCH (14:17)
[2020-09-01] MEDS: DULoxetine HCL 60 MG CAPSULE PO SCH ×2 (14:18→22:00)
[2020-09-01] MEDS: QUEtiapine FUMARATE 25 MG TABLET PO SCH (21:50)
[2020-09-01] MEDS: TraZODone HCL 150 MG TABLET PO SCH (22:00)
[2020-09-02] VITALS (20 sets, daily range): BP systolic 85–166; BP diastolic 59–86
[2020-09-02] MEDS: PIPERACILLIN/TAZO 3.375 GM/D5W 50 ML IV SCH ×4 (04:04→23:45)
[2020-09-02 07:05] LABS: BASOPHILS % (AUTO) 0.1 % (0.0-2.0); EOSINOPHILS % (AUTO) 1.2 % (1.0-6.0); HEMOGLOBIN 12.6 g/dL (13.5-17.5); LYMPHOCYTES # (AUTO) 0.3 K/uL (1.0-4.8); LYMPHOCYTES % (AUTO) 3.2 % (22.0-44.0); MEAN CORPUSCULAR HEMOGLOBIN 32.9 pg (26.0-34.0); MEAN CORPUSCULAR VOLUME 94 fL (80-100); MONOCYTES % (AUTO) 0.2 % (2.0-9.0); NEUTROPHILS # (AUTO) 9.8 K/uL (1.8-7.7); PLATELET COUNT (AUTO) 46 K/uL (150-450); RED BLOOD CELL COUNT(AUTO) 3.82 MIL/uL (4.50-5.90); RED CELL DISTRIBUTION WIDTH 13.8 % (11.5-14.5)
[2020-09-02 07:15] LABS: NEUTROPHILS % (AUTO) 95.3 % (40.0-70.0)
[2020-09-02 07:30] LABS: ALANINE AMINOTRANSFERASE 19 U/L (12-78); ALBUMIN 1.8 g/dL (3.4-5.0); ALKALINE PHOSPHATASE 124 U/L (46-116); ANION GAP 6 mmol/L (8-16); ASPARTATE AMINOTRANSFERASE 26 U/L (15-37); BILIRUBIN,TOTAL 2.7 mg/dL (0.1-1.0); C-REACTIVE PROTEIN QUANT 3.92 mg/dL (0.00-0.30); CALCIUM, TOTAL 7.9 mg/dL (8.8-10.5); CARBON DIOXIDE 24 mmol/L (22-29); CHLORIDE 101 mmol/L (98-107); CREATININE 0.99 mg/dL (0.60-1.30); GLOMERULAR FILTR. RATE CALC > 60 mL/min (>60); GLUCOSE,RANDOM 124 mg/dL (70-110); POTASSIUM 3.5 mmol/L (3.5-5.1); SODIUM SERUM 131 mmol/L (136-145); TOTAL PROTEIN, SERUM 6.1 g/dL (6.4-8.2); UREA NITROGEN, BLOOD 10 mg/dL (7-18)
[2020-09-02] MEDS: PHENYLEPHRINE 200 MG/D5%-WATER 250 ML IV PRN (08:11)
[2020-09-02 09:07] LABS: GLUCOSE,POINT OF CARE 114 MG/DL (70-110)
[2020-09-02] MEDS: DULoxetine HCL 60 MG CAPSULE PO SCH ×2 (10:00→21:00)
[2020-09-02] MEDS: POTASSIUM CHLORIDE 20 MEQ ER TABLET PO PRN (10:01)
[2020-09-02] MEDS: QUEtiapine FUMARATE 200 MG TABLET PO SCH ×3 (11:00→21:00)
[2020-09-02 13:58] LABS: GLUCOSE,POINT OF CARE 139 MG/DL (70-110)
[2020-09-02] MEDS: SODIUM CHLORIDE 0.45% 1,000 ML IV SCH (16:18)
[2020-09-02 16:21] LABS: MAGNESIUM 1.8 mg/dL (1.80-2.40); PHOSPHORUS 2.6 mg/dL (2.5-4.9); POTASSIUM 4.5 mmol/L (3.5-5.1); THYROID STIMULATING HORMONE 0.85 uIU/mL (0.36-3.74)
[2020-09-02 19:20] LABS: GLUCOSE,POINT OF CARE 133 MG/DL (70-110)
[2020-09-02] MEDS: TraZODone HCL 150 MG TABLET PO SCH (21:00)
[2020-09-03] VITALS (15 sets, daily range): BP systolic 91–121; BP diastolic 50–77
[2020-09-03] MEDS: PIPERACILLIN/TAZO 3.375 GM/D5W 50 ML IV SCH ×4 (05:13→22:32)
[2020-09-03] MEDS: ACETAMINOPHEN 325 MG TABLET PO PRN ×2 (05:14→23:09)
[2020-09-03] MEDS: SODIUM CHLORIDE 0.45% 1,000 ML IV SCH ×2 (06:34→19:04)
[2020-09-03 09:40] LABS: D-DIMER 1.37 mg/L FEU (0.00-0.50); INR 1.1 (0.9-1.1)
[2020-09-03] MEDS: DULoxetine HCL 60 MG CAPSULE PO SCH ×2 (10:00→23:01)
[2020-09-03] MEDS: QUEtiapine FUMARATE 200 MG TABLET PO SCH ×2 (10:02→23:10)
[2020-09-03] MEDS: TraZODone HCL 150 MG TABLET PO SCH (23:01)
[2020-09-03] MEDS: PHENYLEPHRINE 200 MG/D5%-WATER 250 ML IV PRN (23:30)
[2020-09-04] VITALS (28 sets, daily range): BP systolic 77–167; BP diastolic 38–114
[2020-09-04] MEDS: NOREPINEPHRINE 4 MG/D5%-WATER 250 ML IV PRN (02:44)
[2020-09-04] MEDS: PIPERACILLIN/TAZO 3.375 GM/D5W 50 ML IV SCH ×4 (03:08→22:41)
[2020-09-04 05:25] LABS: GLUCOSE,POINT OF CARE 107 MG/DL (70-110)
[2020-09-04 07:14] LABS: GLUCOSE,POINT OF CARE 119 MG/DL (70-110)
[2020-09-04] MEDS: QUEtiapine FUMARATE 200 MG TABLET PO SCH (08:36)
[2020-09-04] MEDS: SODIUM CHLORIDE 0.45% 1,000 ML IV SCH ×2 (08:36→22:40)
[2020-09-04] MEDS: DULoxetine HCL 60 MG CAPSULE PO SCH ×2 (08:36→21:33)
[2020-09-04 13:57] LABS: GLUCOSE,POINT OF CARE 166 MG/DL (70-110)
[2020-09-04 18:08] LABS: GLUCOSE,POINT OF CARE 141 MG/DL (70-110)
[2020-09-04] MEDS ORDERED: QUEtiapine FUMARATE 300 MG TABLET PO SCH (21:00)
[2020-09-04 22:17] LABS: GLUCOSE,POINT OF CARE 105 MG/DL (70-110)
[2020-09-04] MEDS: TraZODone HCL 150 MG TABLET PO SCH ×2 (22:40→22:58)
[2020-09-05] VITALS (12 sets, daily range): BP systolic 90–157; BP diastolic 52–89
[2020-09-05] MEDS: PIPERACILLIN/TAZO 3.375 GM/D5W 50 ML IV SCH ×2 (03:54→10:27)
[2020-09-05] MEDS: PHENYLEPHRINE 200 MG/D5%-WATER 250 ML IV PRN (04:36)
[2020-09-05 06:41] LABS: BASOPHILS % (AUTO) 0.6 % (0.0-2.0); EOSINOPHILS % (AUTO) 2.1 % (1.0-6.0); HEMATOCRIT 36.6 % (41-53); HEMOGLOBIN 12.6 g/dL (13.5-17.5); LYMPHOCYTES # (AUTO) 0.9 K/uL (1.0-4.8); LYMPHOCYTES % (AUTO) 7.6 % (22.0-44.0); MEAN CORPUSCULAR HEMOGLOBIN 32.5 pg (26.0-34.0); MEAN CORPUSCULAR HGB CONC 34.4 G/dL (31.0-37.0); MEAN CORPUSCULAR VOLUME 95 fL (80-100); MONOCYTES # (AUTO) 0.7 K/uL (0.1-1.0); MONOCYTES % (AUTO) 5.8 % (2.0-9.0); NEUTROPHILS # (AUTO) 9.8 K/uL (1.8-7.7); NEUTROPHILS % (AUTO) 83.9 % (40.0-70.0); PLATELET COUNT (AUTO) 129 K/uL (150-450); RED BLOOD CELL COUNT(AUTO) 3.87 MIL/uL (4.50-5.90); RED CELL DISTRIBUTION WIDTH 14.3 % (11.5-14.5)
[2020-09-05 06:56] LABS: ANION GAP 7 mmol/L (8-16); CARBON DIOXIDE 25 mmol/L (22-29); CHLORIDE 99 mmol/L (98-107); CREATININE 1.05 mg/dL (0.60-1.30); GLOMERULAR FILTR. RATE CALC > 60 mL/min (>60); GLUCOSE,RANDOM 165 mg/dL (70-110); SODIUM SERUM 131 mmol/L (136-145); UREA NITROGEN, BLOOD 18 mg/dL (7-18)
[2020-09-05 07:01] LABS: ALANINE AMINOTRANSFERASE 17 U/L (12-78); ALBUMIN 1.9 g/dL (3.4-5.0); ALKALINE PHOSPHATASE 117 U/L (46-116); ASPARTATE AMINOTRANSFERASE 18 U/L (15-37); C-REACTIVE PROTEIN QUANT 8.63 mg/dL (0.00-0.30); TOTAL PROTEIN, SERUM 7.2 g/dL (6.4-8.2)
[2020-09-05 07:06] LABS: INR 1.1 (0.9-1.1); PROTHROMBIN TIME 11.4 SEC (9.4-11.6)
[2020-09-05 07:12] LABS: LACTIC ACID 1.1 mmol/L (0.4-2.0)
[2020-09-05 08:06] LABS: GLUCOSE,POINT OF CARE 136 MG/DL (70-110)
[2020-09-05] MEDS: DULoxetine HCL 60 MG CAPSULE PO SCH (09:00)
[2020-09-05] MEDS ORDERED: QUEtiapine FUMARATE 100 MG TABLET PO SCH (09:00)
[2020-09-05] MEDS: MIDODRINE HCL 2.5 MG TABLET PO SCH ×2 (14:42→14:43)
== END 2020-09-05 18:15 | disposition left against medical advice (07) | DRG 720 ==
LOC: EMS 16:19 → 5S 08-29 01:19 → AHU 08-29 10:50 → 6N 08-29 15:40 → AHU 08-29 22:20
PROVIDERS: ADMIT Internal Medicine; ATTEND Internal Medicine
PROC: 05HM33Z Insertion of Infusion Device into Right Internal Jugular Vein, Percutaneous Approach (ICD-10-PCS; principal; 2020-08-30)
PROC: B543ZZA Ultrasonography of Right Jugular Veins, Guidance (ICD-10-PCS; 2020-08-30)
DX: A41.9 Sepsis, unspecified organism (principal); E43 Unspecified severe protein-calorie malnutrition; E87.6 Hypokalemia; R45.851 Suicidal ideations; D69.6 Thrombocytopenia, unspecified; R65.21 Severe sepsis with septic shock; R16.1 Splenomegaly, not elsewhere classified; E87.1 Hypo-osmolality and hyponatremia; N17.9 Acute kidney failure, unspecified; F41.9 Anxiety disorder, unspecified; E03.9 Hypothyroidism, unspecified; F31.30 Bipolar disorder, current episode depressed, mild or moderate severity, unspecified; B19.20 Unspecified viral hepatitis C without hepatic coma; F15.10 Other stimulant abuse, uncomplicated; K83.1 Obstruction of bile duct; F25.1 Schizoaffective disorder, depressive type; N40.0 Benign prostatic hyperplasia without lower urinary tract symptoms; R16.0 Hepatomegaly, not elsewhere classified; K74.60 Unspecified cirrhosis of liver; F12.90 Cannabis use, unspecified, uncomplicated; Z59.0 Homelessness; Z68.21 Body mass index [BMI] 21.0-21.9, adult; N30.90 Cystitis, unspecified without hematuria; K76.0 Fatty (change of) liver, not elsewhere classified; Z20.822 Contact with and (suspected) exposure to COVID-19
CPT/HCPCS: 74177; 74183; 76705; 78226; 82248; 82271; 83605; 83735; 83930; 83935; 84100; 84132; 84145; 84300; 84443; 85379; 85384; 86140; 86850; 86900; 86901; 87040; 87426; 93005; A9537; G0378; G0480; J0295; J1630; J1644; J1815; J2060; J2250; J2270; J2370; J2405; J2543; J3010; J3370; J3480; J3490; J7030; J7040; J7050; J7060; 36415-L1; 36415-TC; 71045-TC; 80076-TC; 81003-TC; U0003

== ENCOUNTER 2020-09-21 03:00 | Inpatient (IN) | payer MEDICAID ==
[~2020-09-21] VITALS: Ht 157.5 cm; Wt 56.0 kg
[~2020-09-21 03:00] MED LIST changes: +QUET25TA PO; -QUET300T2 PO
[2020-09-21] MEDS ORDERED: ZOLPIDEM TARTRATE 10 MG TABLET PO PRN (03:15)
[2020-09-21 04:58] VITALS: BP 123/83
[2020-09-21] MEDS ORDERED: OMEPRAZOLE 20 MG CAPSULE PO PRN (06:15)
[2020-09-21] MEDS ORDERED: CloNIDine HCL 0.1 MG TABLET PO PRN (06:15)
[2020-09-21] MEDS ORDERED: ALBUTEROL SULFATE HFA 90 MCG/PUFF 8 GM INHALER IH PRN (06:15)
[2020-09-21] MEDS ORDERED: IBUPROFEN 600 MG TABLET PO PRN (06:15)
[2020-09-21] MEDS ORDERED: BENZOCAINE/MENTHOL LOZENGE PO PRN (06:15)
[2020-09-21] MEDS ORDERED: MAGNESIUM HYDROXIDE SUSPENSION 30 ML UDCUP PO PRN (06:15)
[2020-09-21] MEDS ORDERED: PETROLATUM,WHITE 28 GM JELLY TP PRN (06:15)
[2020-09-21] MEDS ORDERED: ONDANSETRON HCL 4 MG TABLET PO PRN (06:15)
[2020-09-21] MEDS ORDERED: DOCUSATE SODIUM 100 MG CAPSULE PO PRN (06:15)
[2020-09-21] MEDS ORDERED: BACITRACIN 28 GM OINTMENT TP PRN (06:15)
[2020-09-21] MEDS ORDERED: LOPERAMIDE HCL 2 MG CAPSULE PO PRN (06:15)
[2020-09-21] MEDS ORDERED: MAG HYDROX/AL HYDROX/SIMETH ES 30 ML SUSPENSION UDCUP PO PRN (06:15)
[2020-09-21] MEDS ORDERED: ACETAMINOPHEN 325 MG TABLET PO PRN (06:15)
[2020-09-21] MEDS ORDERED: -PHARMACY VACCINE NOTE- MISC ONE (06:30)
[2020-09-21 08:23] VITALS: BP 104/61
[2020-09-21] MEDS: SODIUM CHLORIDE 1 GM TABLET PO SCH ×3 (10:00→16:43)
[2020-09-21] MEDS: TAMSULOSIN HCL 0.4 MG CAPSULE PO SCH ×2 (10:00→12:56)
[2020-09-21 16:21] VITALS: BP 109/53
[2020-09-21] MEDS: LORazepam 2 MG TABLET PO PRN (16:43)
[2020-09-21] MEDS: HALOPERIDOL 5 MG TABLET PO PRN (16:43)
[2020-09-21 17:00] VITALS: BP 106/66
[2020-09-21] MEDS: QUEtiapine FUMARATE 200 MG TABLET PO SCH (20:30)
[2020-09-22 04:16] VITALS: BP 108/67
[2020-09-22 08:34] VITALS: BP 105/64
[2020-09-22] MEDS: TAMSULOSIN HCL 0.4 MG CAPSULE PO SCH (09:09)
[2020-09-22] MEDS: SODIUM CHLORIDE 1 GM TABLET PO SCH ×3 (09:09→16:42)
[2020-09-22] MEDS: DULoxetine HCL 60 MG CAPSULE PO SCH (09:09)
[2020-09-22] MEDS: LORazepam 2 MG TABLET PO PRN (16:42)
[2020-09-22] MEDS: HALOPERIDOL 5 MG TABLET PO PRN (16:42)
[2020-09-22] MEDS: QUEtiapine FUMARATE 200 MG TABLET PO SCH (20:32)
[2020-09-23 08:40] VITALS: BP 108/58
[2020-09-23] MEDS: SODIUM CHLORIDE 1 GM TABLET PO SCH ×2 (09:14→12:54)
[2020-09-23] MEDS: TAMSULOSIN HCL 0.4 MG CAPSULE PO SCH (09:14)
[2020-09-23] MEDS: DULoxetine HCL 60 MG CAPSULE PO SCH (09:15)
[2020-09-23 13:45] VITALS: BP 70/40
[2020-09-23 13:50] VITALS: BP 75/53
[2020-09-23 13:55] VITALS: BP 76/53
[2020-09-23 14:07] LABS: GLUCOMETER DEV NAME(LOC) BV3N.; GLUCOSE,POINT OF CARE 156 MG/DL (70-110)
== END 2020-09-23 21:45 | disposition other institution, planned readmission (95) | DRG 750 ==
LOC: B3A 03:00
PROVIDERS: ADMIT Psychiatry & Neurology Psychiatry; ATTEND Psychiatry & Neurology Psychiatry
DX: F25.1 Schizoaffective disorder, depressive type (principal); E44.1 Mild protein-calorie malnutrition; J44.9 Chronic obstructive pulmonary disease, unspecified; I10 Essential (primary) hypertension; N40.0 Benign prostatic hyperplasia without lower urinary tract symptoms; K21.9 Gastro-esophageal reflux disease without esophagitis; Z59.0 Homelessness; Z56.0 Unemployment, unspecified; F41.9 Anxiety disorder, unspecified; Z68.22 Body mass index [BMI] 22.0-22.9, adult; B18.2 Chronic viral hepatitis C